=== PATIENT | male | born 1945 | race Caucasian/White ===

== ENCOUNTER 2020-03-28 22:05 | Inpatient (IN) | payer OTHER ==
[~2020-03-28] VITALS: Ht 182.9 cm; Wt 78.4 kg
[2020-03-28 22:15] VITALS: BP 121/70
[2020-03-28] MEDS ORDERED: MAGNESIUM HYDROXIDE 2,400 MG/30 ML ORAL.SUSP. PO PRN (23:15)
[2020-03-28] MEDS ORDERED: MAG HYDROX/AL HYDROX/SIMETH 30 ML ORAL.SUSP PO PRN (23:15)
[2020-03-28] MEDS ORDERED: ACETAMINOPHEN 325 MG TABLET PO PRN (23:15)
[2020-03-28] MEDS ORDERED: METHYL SALICYLATE/MENTHOL TOPICAL OINTMENT 57GM TUBE. TP PRN (23:15)
[2020-03-29] MEDS ORDERED: CYAN-25 PO (00:03)
[2020-03-29] MEDS ORDERED: GABA-586 PO (00:03)
[2020-03-29] MEDS ORDERED: MEMA10TA PO (00:03)
[2020-03-29] MEDS ORDERED: LORA0.5T21 PO (00:03)
[2020-03-29] MEDS ORDERED: METO-239 PO (00:03)
[2020-03-29] MEDS ORDERED: LISI2.5T PO (00:03)
[2020-03-29] MEDS ORDERED: MIRT7.5T8 PO (00:03)
[2020-03-29] MEDS ORDERED: ASPI-630 PO (00:03)
[2020-03-29] MEDS ORDERED: ATOR20TA58 PO (00:03)
[2020-03-29] MEDS ORDERED: AMIO200T6 PO (00:03)
[2020-03-29] MEDS ORDERED: QUET25TA5 PO (00:03)
[2020-03-29] MEDS ORDERED: RIVA6CAP5 PO (00:03)
[2020-03-29] MEDS ORDERED: DIVA125C2 PO (00:03)
--- NOTE | 2020-03-29 04:14 | NUR ---
The patient, CELINE ROLON, 75 y/o, M admitted by EPIFANIO COLÓN MD, was given written information regarding hospital policies, unit procedures and contact persons. Valuables were checked and noted. The patient arrived via fire/ems. The patient was very disorganized and unable to answer simple assessment questions at that time. The patient has no wounds or rashes. The patient is alert to name only at this time. Vital signs are WNL. Patient had one episode during HS shift of urinating on the floor in the bathroom. Patient able to ambulate self but requires standby x1 assist due to being unsteady and walking with eyes closed. The patient is currently laying in bed awake and restless.
[2020-03-29 05:40] VITALS: BP 106/60
--- NOTE | 2020-03-29 06:25 | EKG ---
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
[2020-03-29 07:40] LABS: BASO % 1 % (0-3); EOS # 0.2 x10^3/uL (0.0-0.7); EOS % 3 % (0-3); HEMATOCRIT 36.8 % (39.0-53.0); HEMOGLOBIN 11.9 g/dL (13.0-17.5); LYMPH # 0.8 x10^3/uL (1.0-4.8); LYMPH % 13 % (24-48); MEAN CORPUSCULAR HEMOGLOBIN 30 pg (25-35); MEAN CORPUSCULAR HGB CONC 32 g/dL (31-37); MEAN CORPUSCULAR VOLUME 92 fL (79-100); MONO # 0.5 x10^3/uL (0.0-1.1); MONO % 8 % (0-9); NEUT # 4.5 x10^3uL (1.8-7.7); NEUT % 76 % (31-73); PLATELET COUNT 134 x10^3/uL (140-400); RED BLOOD COUNT 3.98 x10^6/uL (4.30-5.70); RED CELL DISTRIBUTION WIDTH 15.1 % (11.5-14.5); WHITE BLOOD COUNT 5.9 x10^3/uL (4.0-11.0)
[2020-03-29 08:20] LABS: ALBUMIN 3.2 g/dL (3.4-5.0); ALBUMIN/GLOBULIN RATIO 1.1 (1.0-1.7); CALCIUM 8.2 mg/dL (8.5-10.1); CREATININE 1.1 mg/dL (0.7-1.3); GFR 65.1; MAGNESIUM 2.2 mg/dL (1.8-2.4); POTASSIUM 3.8 mmol/L (3.5-5.1); TOTAL BILIRUBIN 0.5 mg/dL (0.2-1.0); TOTAL PROTEIN 6.2 g/dL (6.4-8.2)
--- NOTE | 2020-03-29 08:45 | NUR ---
Dangelo [place] a [place] community choice payor with consult number [id number]. Aniyah, mail service coordinator at the [place], [place] call [place] with a [place]. Addendum: 03/29/20 at 0950 by CELIA HOBSON [place] authorization [place] is [id number].
[2020-03-29 09:00] VITALS: BP 138/72
[2020-03-29] MEDS ORDERED: FLU VACC QS 2020-21(6MOS+)/PF 0.5 ML SYRINGE. VAX IM ONE (09:00)
[2020-03-29] MEDS: ASPIRIN CHEWABLE 81 MG TABLET. PO SCH (11:36)
[2020-03-29] MEDS: LISINOPRIL 2.5 MG TABLET PO SCH (11:36)
[2020-03-29] MEDS: DIVALPROEX 125 MG CAP.SPRINK PO SCH ×2 (11:36→20:09)
[2020-03-29] MEDS: AMIODARONE HCL 200 MG TABLET. PO SCH (11:40)
[2020-03-29] MEDS: CYANOCOBALAMIN (VITAMIN B-12) 1,000 MCG TABLET. PO SCH (11:41)
[2020-03-29] MEDS: METOPROLOL SUCC 24HR ER 25 MG TAB.ER.24H. PO SCH (11:41)
[2020-03-29] MEDS: GABAPENTIN 300 MG CAPSULE. PO SCH ×3 (11:41→20:09)
[2020-03-29] MEDS: MEMANTINE 10 MG TABLET. PO SCH ×2 (11:41→20:09)
[2020-03-29] MEDS: RIVASTIGMINE 6 MG PO SCH ×2 (11:42→20:09)
[2020-03-29] MEDS: LORazepam 0.5 MG TABLET PO PRN (11:45)
[2020-03-29] MEDS: QUEtiapine 25 MG TABLET. PO SCH (11:45)
[2020-03-29 11:57] LABS: COLOR,URINE YELLOW
[2020-03-29 11:58] LABS: BACTERIA,URINE MANY /HPF (0-FEW); BILIRUBIN,URINE NEG (NEG); CLARITY,URINE CLOUDY; GLUCOSE,URINE NEG (NEG); NITRITE,URINE POS (NEG); RBC,URINE OCC /HPF (0-2); WBC,URINE >40 /HPF (0-4)
--- NOTE | 2020-03-29 12:55 | NUR ---
Key, global sales executive at [facility], called to check status of Dangelo. Reviewed admission nursing note with her and she expressed thankfulness that Dangelo made it safely.
--- NOTE | 2020-03-29 13:15 | NUR ---
Nursing note: Pt has been very restless this shift, constantly getting up and walking around. Pt has unsteady gait and requires assistance with walking. PRN given with AM meds d/t agitation and restlessness. He was compliant with taking his meds crushed and mixed with pudding. Flu vaccine given in R deltoid. He is currently resting quietly in his bed. Will continue to monitor.
[2020-03-29 14:40] VITALS: BP 159/80
--- NOTE | 2020-03-29 14:54 | NUR ---
NURSING NOTE PT NOT REDIRECTABLE, PT AGITATED, ATTEMPTING TO SWING AT STAFF, PULLING ON COUNTER TOP, GRABBING ANYTHING IN SIGHT. DR COLÓN PHONED, ORDER FOR HALDOL 5 MG IM OBTAINED. AMEENA VERA.
[2020-03-29] MEDS ORDERED: HALOPERIDOL LACT 5 MG/ML VIAL. IM ONE (15:00)
--- NOTE | 2020-03-29 17:25 | NUR ---
Wound/Ostomy Care Wound Type/Assessment: Pt has skin tear to left forearm. Cleansed wound and dressed with aric, xeroform and foam dressing Treatment Recommendations/Plan: Continue dressing changes of xeroform and foam every 2-3 days. Education provided: PU prevention, WC POC Offloading surface/device: na Recommended Referrals/Tests: none Discharge Recommendations for dressings: Continue with xeroform and foam every 3 days, WC will follow up on 04/03
--- NOTE | 2020-03-29 17:27 | NUR ---
NURSING NOTE THIS NURSE TOOK REPORT FROM PADMINI LINDQUIST AND WILL TAKE OVER CARE. AMEENA VERA
[2020-03-29 18:36] LABS: THYROID STIM HORMONE (TSH) 0.627 uIU/mL (0.358-3.740)
[2020-03-29] MEDS: ATORVASTATIN CALCIUM 20 MG TABLET PO SCH (20:09)
[2020-03-29] MEDS: MIRTAZAPINE 7.5 MG TABLET. PO SCH (20:09)
--- NOTE | 2020-03-29 22:06 | PDOC ---
Exam Note: Hiren Note: Please also refer to the separate dictated note~for this date of service dictated separately.~Patient seen individually. Discussed the patient with Nursing staff reviewed the chart.~Reviewed interim history and current functioning. Reviewed vital signs,~Labs/ Radiology~and current medications noted below. Continue current treatment with the changes noted in the dictated addendum note Assessment: Vital Signs/I&O: Vital Signs Date Time Temp Pulse Resp B/P (MAP) Pulse Ox O2 Delivery O2 Flow Rate FiO2 03/29/20 14:40 97.9 88 20 159/80 (106) 95 Room Air Labs: Laboratory Tests Test 03/29/20 07:18 03/29/20 10:36 03/29/20 10:40 White Blood Count 5.9 x10^3/uL (4.0-11.0) Red Blood Count 3.98 x10^6/uL (4.30-5.70) L Hemoglobin 11.9 g/dL (13.0-17.5) L Hematocrit 36.8 % (39.0-53.0) L Mean Corpuscular Volume 92 fL (79-100) Mean Corpuscular Hemoglobin 30 pg (25-35) Mean Corpuscular Hemoglobin Concent 32 g/dL (31-37) Red Cell Distribution Width 15.1 % (11.5-14.5) H Platelet Count 134 x10^3/uL (140-400) L Neutrophils (%) (Auto) 76 % (31-73) H Lymphocytes (%) (Auto) 13 % (24-48) L Monocytes (%) (Auto) 8 % (0-9) Eosinophils (%) (Auto) 3 % (0-3) Basophils (%) (Auto) 1 % (0-3) Neutrophils # (Auto) 4.5 x10^3uL (1.8-7.7) Lymphocytes # (Auto) 0.8 x10^3/uL (1.0-4.8) L Monocytes # (Auto) 0.5 x10^3/uL (0.0-1.1) Eosinophils # (Auto) 0.2 x10^3/uL (0.0-0.7) Basophils # (Auto) 0.0 x10^3/uL (0.0-0.2) Sodium Level 143 mmol/L (136-145) Potassium Level 3.8 mmol/L (3.5-5.1) Chloride Level 108 mmol/L (98-107) H Carbon Dioxide Level 27 mmol/L (21-32) Anion Gap 8 (6-14) Blood Urea Nitrogen 19 mg/dL (8-26) Creatinine 1.1 mg/dL (0.7-1.3) Estimated GFR (Cockcroft-Gault) 65.1 BUN/Creatinine Ratio 17 (6-20) Glucose Level 96 mg/dL (70-99) Calcium Level 8.2 mg/dL (8.5-10.1) L Magnesium Level 2.2 mg/dL (1.8-2.4) Iron Level 31 ug/dL (65-175) L Total Iron Binding Capacity 223 ug/dL (250-450) L Iron Saturation 14 % (15-34) L Total Bilirubin 0.5 mg/dL (0.2-1.0) Aspartate Amino Transferase (AST) 35 U/L (15-37) Alanine Aminotransferase (ALT) 28 U/L (16-63) Alkaline Phosphatase 60 U/L (46-116) Total Protein 6.2 g/dL (6.4-8.2) L Albumin 3.2 g/dL (3.4-5.0) L Albumin/Globulin Ratio 1.1 (1.0-1.7) Triglycerides Level 62 mg/dL (0-150) Cholesterol Level 108 mg/dL (0-200) LDL Cholesterol, Calculated 58 mg/dL (0-100) VLDL Cholesterol, Calculated 12 mg/dL (0-40) Non-HDL Cholesterol Calculated 70 mg/dL (0-129) HDL Cholesterol 38 mg/dL (40-60) L Cholesterol/HDL Ratio 2.0 Vitamin B12 Level 915 pg/mL (247-911) H 25-Hydroxy Vitamin D Total 16.2 ng/mL (30-100) L Thyroid Stimulating Hormone (TSH) 0.627 uIU/mL (0.358-3.740) Treponema pallidum Antibody Reactive (Nonreactive) Urine Collection Type Unknown Urine Color Yellow Urine Clarity Cloudy Urine pH 7.0 Urine Specific [place] 1.020 Urine Protein Neg (NEG-TRACE) Urine Glucose (UA) Neg mg/dL (NEG) Urine Ketones (Stick) Neg mg/dL (NEG) Urine Blood Neg (NEG) Urine Nitrite Pos (NEG) Urine Bilirubin Neg (NEG) Urine Urobilinogen Dipstick 1.0 mg/dL (0.2 mg/dL) Urine Leukocyte Esterase Small (NEG) Urine RBC Occ /HPF (0-2) Urine WBC >40 /HPF (0-4) Urine Bacteria Many /HPF (0-FEW) D-Dimer (Elsa) 1.58 mg/L (0.00-0.50) H Current Medications: Meds: Current Medications Medications (Trade) Dose Ordered Sig/Nelly Route PRN Reason Start Time Stop Time Status Last Admin Dose Admin Amiodarone HCl (Cordarone) 200 mg DAILY PO 03/29/20 09:00 03/29/20 11:40 Aspirin (Aspirin Chewable) 81 mg DAILY PO 03/29/20 09:00 03/29/20 11:36 Atorvastatin Calcium (Lipitor) 20 mg QHS PO 03/29/20 21:00 03/29/20 20:09 Cyanocobalamin (Vitamin B-12) 1,000 mcg DAILY PO 03/29/20 09:00 03/29/20 11:41 Divalproex Sodium (Depakote Sprinkles) 125 mg BID PO 03/29/20 09:00 03/29/20 20:09 Gabapentin (Neurontin) 300 mg TID PO 03/29/20 09:00 03/29/20 20:09 Lisinopril (Prinivil) 2.5 mg DAILY PO 03/29/20 09:00 03/29/20 11:36 Lorazepam (Ativan) 0.5 mg PRN BID PRN PO ANXIETY 03/29/20 00:15 03/29/20 11:45 Memantine (Namenda) 10 mg BID PO 03/29/20 09:00 03/29/20 20:09 Metoprolol Succinate (Toprol Xl) 12.5 mg DAILY PO 03/29/20 09:00 03/29/20 11:41 Mirtazapine (Remeron) 7.5 mg QHS PO 03/29/20 21:00 03/29/20 20:09 Quetiapine Fumarate (SEROquel) 12.5 mg DAILY@1200 PO 03/29/20 12:00 03/29/20 11:45 Rivastigmine Tartrate (Exelon) 6 mg BID PO 03/29/20 09:00 03/29/20 20:09 Influenza Virus Vaccine Quadrival (Fluzone Quad Syringe) 0.5 ml ONCE ONCE VAX IM 03/29/20 09:00 03/29/20 09:01 DC 03/29/20 11:50 Haloperidol Lactate (Haldol) 5 mg 1X ONCE IM 03/29/20 15:00 03/29/20 15:01 DC 03/29/20 15:00 I have reviewed the current psychotropics carefully including drug interactions. Risk benefit ratio favors no change other than as noted in my dictated progress note. GEOVANI VIEIRA MD Mar 29, 2020 22:06
[2020-03-29 23:07] LABS: HEMOGLOBIN A1C 5.8 % (4.8-5.6)
--- NOTE | 2020-03-29 23:44 | NUR ---
Pt has been laying in bed all evening after receiving IM Haldol on previous shift. Pt awakens to name and smiles when RN approaches. Compliant with crushed HS medications. No agitation this shift.
[2020-03-30 00:06] LABS: THYROXINE 7.8 ug/dL (4.5-12.0)
[2020-03-30 06:32] VITALS: BP 115/73
[2020-03-30] MEDS: PENICILLIN G BENZATHINE LA 1,200,000 UNIT/2 ML DISP.SYRIN. IM SCH (09:00)
[2020-03-30] MEDS: DIVALPROEX 125 MG CAP.SPRINK PO SCH ×2 (09:51→19:37)
[2020-03-30] MEDS: GABAPENTIN 300 MG CAPSULE. PO SCH ×3 (09:51→19:41)
[2020-03-30] MEDS: ASPIRIN CHEWABLE 81 MG TABLET. PO SCH (09:51)
[2020-03-30] MEDS: AMIODARONE HCL 200 MG TABLET. PO SCH (09:51)
[2020-03-30] MEDS: MEMANTINE 10 MG TABLET. PO SCH ×2 (09:51→19:37)
[2020-03-30] MEDS: LISINOPRIL 2.5 MG TABLET PO SCH (09:52)
[2020-03-30] MEDS: RIVASTIGMINE 6 MG PO SCH ×2 (09:52→19:41)
[2020-03-30] MEDS: CYANOCOBALAMIN (VITAMIN B-12) 1,000 MCG TABLET. PO SCH (09:52)
[2020-03-30] MEDS: METOPROLOL SUCC 24HR ER 25 MG TAB.ER.24H. PO SCH (09:52)
--- NOTE | 2020-03-30 10:11 | NUR ---
Patient complaint with assessment and medication. Patient encouraged not to go into other patients rooms when wandering. Patient is currently laying in bed.
[2020-03-30] MEDS: QUEtiapine 25 MG TABLET. PO SCH (12:04)
[2020-03-30] MEDS ORDERED: CHOLECALCIFEROL (VITAMIN D3) 50,000 UNIT CAPSULE PO SCH ×2 (18:00→21:00)
--- NOTE | 2020-03-30 18:38 | HP ---
ADMIT DATE: 03/28/2020 HISTORY OF PRESENT ILLNESS: The patient is a 75-year-old male patient, a resident at [facility] in [place], [place], who was admitted on account of being aggressive, flipping tables when he cannot leave, got mad with the staff and put hands on staff's neck, trying to bite. All this has been going on for the last 2 weeks, and he was apparently evaluated at the [facility], and despite this, the patient continued with this behavior and therefore, he was admitted to [facility] for 48 hours unit as a direct admit to rule out COVID, and once that is done, the patient will be admitted to [facility] for inpatient psychiatric stabilization. The patient apparently is demented with major neurocognitive disorder, vascular dementia and does not really give any useful information. PAST MEDICAL HISTORY: Significant for hypertension, hyperlipidemia, and atrial fibrillation. PAST SURGICAL HISTORY: Unremarkable. FAMILY HISTORY: Unobtainable. SOCIAL HISTORY: He is apparently a resident at [facility]. No further information available. REVIEW OF SYSTEMS: Again is limited given the patient is demented. ALLERGIES: HE IS ALLERGIC TO PENICILLIN, ARICEPT, AND GALANTAMINE. CURRENT MEDICATIONS: He is currently on following medications: Mirtazapine 7.5 mg at bedtime, atorvastatin calcium 20 mg at bedtime, quetiapine fumarate 12.5 mg once daily, rivastigmine tartrate or Exelon 6 mg twice a day, metoprolol succinate 12.5 mg once a day, Namenda 10 mg twice a day, lisinopril 2.5 mg daily, gabapentin 300 mg 3 times a day, divalproex sodium 125 mg twice a day, cyanocobalamin 1000 mcg once a day, aspirin 81 mg once a day, amiodarone 200 mg daily, lorazepam 0.5 mg twice a day, milk of magnesia 30 mL p.o. daily p.r.n. for constipation, Mylanta 15 mL after meals and as needed, acetaminophen 650 mg every 6 hours as needed. PHYSICAL EXAMINATION: GENERAL: When I examined him this afternoon, he was resting slightly propped up in bed, in no apparent distress, somewhat lethargic, but arousable; however, the nursing staff stated that he goes into cycles of taking naps and then walking around. There was no pallor, jaundice or cyanosis. No lymphadenopathy, no thyromegaly. No jugular venous distention. No lower limb edema. VITAL SIGNS: His heart rate was 54, blood pressure 115/73, temperature was 97.6, respiratory rate was 16, and oxygen saturation was 96%. HEAD, EYES, EARS, NOSE AND THROAT: Showed he is normocephalic, atraumatic. NECK: Supple. CARDIAC: Normal first and second heart sounds. No gallop, rub or murmur. CHEST: Clear to auscultation. No crepitation or rhonchi. ABDOMEN: Distended, soft, nontender. NEUROLOGIC: He was somewhat lethargic, but arousable. He does open his eyes and all his cranial nerves seem to be grossly intact. EXTREMITIES: He moves his extremities without difficulty. He apparently was able to ambulate without assistance or assistive devices. LABORATORY DATA: Showed his white cell count to be 5900, hemoglobin 12, hematocrit 36, MCV 92, and platelet count of 134,000. His chemistry showed his serum sodium was 143, potassium 3.8, chloride 108, bicarbonate 27, anion gap of 8, BUN 19, creatinine 1.1, estimated GFR was 65 mL per minute, his glucose was 96, calcium was 8.2, magnesium was 2.2. Total bilirubin, AST, ALT, alkaline phosphatase were normal. Total protein 6.2, albumin was 3.2. His serum iron was 31, TIBC was 232 and iron saturation was 14%. His serum triglycerides were 62, total cholesterol 108, LDL cholesterol of 58, HDL cholesterol was 38 and the ratio was 2. His vitamin B12 was 915 pg/mL, 25-hydroxy vitamin D was low at 16.2. His TSH, total T3, and total T4 are within normal range. His hemoglobin A1c was 5.8. His D-dimer was high at 1.58. Urinalysis showed that the patient's urine was yellow, cloudy with a pH of 7, specific gravity of 1.020. The urine was negative for protein, glucose, ketones, blood. It was positive for nitrite as well as leukocyte esterase. There are occasional rbc's, more than 40 wbc's, and too many bacteria. His RPR was nonreactive. However, treponema pallidum antibodies were reactive. ASSESSMENT AND PLAN: In summary, this is a 75-year-old male patient, a resident at [facility], who was admitted on account of being aggressive, flipping tables when he cannot leave, apparently put hands on staff's neck and was trying to bite. All these behaviors have been going on for almost 2 weeks, and despite outpatient psychiatric intervention, the patient continued to display this behavior and therefore, he was admitted directly to [facility] for 48-hour unit hold and eventually will be admitted to [facility]. Medically, the patient has multiple medical problems including hypertension, hyperlipidemia, coronary artery disease, and atrial fibrillation. He has also normochromic normocytic anemia, thrombocytopenia with platelet count of 134,000. 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 The patient seems to be somewhat lethargic and has flapping tremors. I will add to his lab work serum ammonia and also prothrombin time and INR to rule out the possibility of hepatic encephalopathy, although he has no clear-cut evidence of liver disease, at least from his lab work and history. Thank you, Dr. Baires for allowing me to participate in the care of this patient. EPIFANIO COLÓN MD DR: GARRETT/fausto JOB#: [id number] / [id number]
[2020-03-30 18:45] VITALS: BP 118/74
[2020-03-30] MEDS: MIRTAZAPINE 7.5 MG TABLET. PO SCH (19:37)
[2020-03-30] MEDS: ATORVASTATIN CALCIUM 20 MG TABLET PO SCH (19:37)
--- NOTE | 2020-03-30 20:54 | CONS ---
DATE OF CONSULTATION: 03/29/2020 PSYCHIATRIC CONSULTATION This late entry, 03/29, covers the elements not covered in my initial note of 03/29. This is a telehealth evaluation. IDENTIFYING DATA: The patient is a 75-year-old male referred to us from [facility] on account of worsening confusion, agitation, psychotic symptoms. He has been aggressive. He has been flipping tables, ____. Behaviors have been dangerous, unmanageable, having failed outpatient psychiatric interventions, referred for inpatient psychiatric stabilization. CHIEF COMPLAINT: "I am okay." When further questioned, the patient thought he had been here since 71. 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 HISTORY OF PRESENT ILLNESS: The patient has a history of dementia, Alzheimer's, vascular type. He has been residing at the [facility], recently getting more paranoid, psychotic with sleep and appetite changes, marked aggressive, disruptive, unmanageable behaviors which have been deemed dangerous, unmanageable at the facility resulting in this referral. No clear history of bipolar disorder. PAST PSYCHIATRIC HISTORY: As above. MEDICAL HISTORY: Positive for hyperlipidemia, coronary artery disease. CODE STATUS: DNR. ALLERGIES: PENICILLIN, ARICEPT, GALANTAMINE, HYDROBROMIDE. DIET: Regular. Takes medications crushed. Ambulates x 1 assist, unsteady. Urine C and S is awaited. CURRENT PSYCHOTROPICS: Depakote 125 mg b.i.d., Ativan 0.5 mg b.i.d. p.r.n., Remeron 7.5 mg at bedtime, Seroquel 12.5 mg at noon, Namenda 10 mg b.i.d., Exelon 6 mg b.i.d. FAMILY HISTORY: Noncontributory. SOCIAL HISTORY: No history of alcohol, drug abuse, physical, sexual or elder abuse. Not known to be a perpetrator. REACTION TO HOSPITALIZATION: The patient oblivious of this. REVIEW OF SYSTEMS: Ambulation impaired. No CV, , pulmonary, eye system symptoms on review. MENTAL STATUS EXAMINATION: The patient is oriented to himself. Insight, judgment, recent and remote memory, attention, concentration, fund of knowledge poor, consistent with his diagnosis. LABORATORY DATA: Reviewed. IMPRESSION: Major neurocognitive disorder; Alzheimer vascular with delusion; depression; behavioral disturbance; anxiety disorder, unspecified; impulse control disorder, unspecified; rule out urinary tract infection. Rest as above. RECOMMENDATIONS: From a psychiatric standpoint, continue current psychotropics. Check CBC, CMP, valproic acid level. The patient will remain [facility] until repeat COVID is negative and the need of transition to the [facility]. MAN Ulisses VIEIRA MD DR: RUDY/fausto JOB#: [id number] / [id number]
[2020-03-30] MEDS: LORazepam 0.5 MG TABLET PO PRN (21:37)
--- NOTE | 2020-03-30 21:48 | NUR ---
Pt has been very restless this evening. Pt up/down from bed, wandering in the hallway, sitting in the chair and going back to bed numerous times. Pt hollering out from his bed "help me." Pt states "get me out of here, I need to leave." At one point, pt yelled out stating that his feet were gone and then yelled out "oh yeah, here they are, I found them." Pt compliant with crushed medications. PRN Ativan administered at 2140 d/t pt's restlessness and continuously setting off bed alarm. Will continue to monitor.
--- NOTE | 2020-03-30 22:10 | PDOC ---
Exam Note: Hiren Note: Please also refer to the separate dictated note~for this date of service dictated separately.~Patient seen individually. Discussed the patient with Nursing staff reviewed the chart.~Reviewed interim history and current functioning. Reviewed vital signs,~Labs/ Radiology~and current medications noted below. Continue current treatment with the changes noted in the dictated addendum note Assessment: Vital Signs/I&O: Vital Signs Date Time Temp Pulse Resp B/P (MAP) Pulse Ox O2 Delivery O2 Flow Rate FiO2 03/30/20 18:45 97.8 64 18 118/74 (89) 96 Room Air I & O 03/29/20 03/29/20 03/30/20 15:00 23:00 07:00 Intake Total 960 ml 0 ml Balance 960 ml 0 ml Current Medications: Meds: Current Medications Medications (Trade) Dose Ordered Sig/Nelly Route PRN Reason Start Time Stop Time Status Last Admin Dose Admin Penicillin G Benzathine (Bicillin L-A) 2,400,000 unit WEEKLY IM 03/30/20 09:00 04/19/20 08:59 03/30/20 09:00 I have reviewed the current psychotropics carefully including drug interactions. Risk benefit ratio favors no change other than as noted in my dictated progress note. Diagnosis: Problems: (1) Major neurocognitive disorder (2) Dementia in Alzheimer's disease with delusions (3) Dementia in Alzheimer's disease with depression (4) Dementia of the Alzheimer's type with early onset with behavioral disturbance (5) Dementia, vascular, with depression (6) Dementia, vascular, with delusions (7) Anxiety disorder, unspecified (8) Impulse control disorder, unspecified GEOVANI VIEIRA MD Mar 30, 2020 22:10
--- NOTE | 2020-03-30 23:28 | PDOC ---
Exam Note: Hiren Note: This note for 03/30/2020 covers elements not covered in my initial note. Subjective: The patient was reviewed on telehealth rounds in the morning of 03/30/2020 with Segun LINDQUIST. Discussed with nursing staff, reviewed the chart. Overall, the patient remains confused, has been anxious, restless. Review of Systems: No CV, , pulmonary, eye system symptoms on review. Gait unsteady. Mental Status Exam: Oriented to himself. Insight and judgment, recent and remote memory, attention and concentration, fund of knowledge is poor consistent with his diagnoses. Laboratory Data: Reviewed. Impression: Major neurocognitive disorder Alzheimers vascular with delusion, depression, behavioral disturbance. Anxiety disorder unspecified. Impulse control disorder unspecified. Plan: Continue current psychotropics. Await valproic acid level. The patient is syphilis positive and being treated on IM penicillin. I had been called as an emergency by Kaela LINDQUIST late evening of 03/29 due to his marked agitation and we did add Zyprexa p.r.n. which seems to be helpful. We will make further adjustments in psychotropics post receiving the above labs. Assessment: Vital Signs/I&O: Vital Signs Date Time Temp Pulse Resp B/P (MAP) Pulse Ox O2 Delivery O2 Flow Rate FiO2 03/30/20 18:45 97.8 64 18 118/74 (89) 96 Room Air I & O 03/29/20 03/29/20 03/30/20 15:00 23:00 07:00 Intake Total 960 ml 0 ml Balance 960 ml 0 ml Current Medications: Meds: Current Medications Medications (Trade) Dose Ordered Sig/Nelly Route PRN Reason Start Time Stop Time Status Last Admin Dose Admin Penicillin G Benzathine (Bicillin L-A) 2,400,000 unit WEEKLY IM 03/30/20 09:00 04/19/20 08:59 03/30/20 09:00 I have reviewed the current psychotropics carefully including drug interactions. Risk benefit ratio favors no change other than as noted in my dictated progress note. Diagnosis: Problems: (1) Impulse control disorder, unspecified (2) Anxiety disorder, unspecified (3) Dementia, vascular, with depression (4) Dementia, vascular, with delusions (5) Dementia in Alzheimer's disease with depression (6) Dementia in Alzheimer's disease with delusions (7) Dementia of the Alzheimer's type with early onset with behavioral disturbance (8) Major neurocognitive disorder GEOVANI VIEIRA MD Mar 30, 2020 23:28
[2020-03-31 06:22] VITALS: BP 148/85
[2020-03-31] MEDS: ASPIRIN CHEWABLE 81 MG TABLET. PO SCH (08:30)
[2020-03-31] MEDS: AMIODARONE HCL 200 MG TABLET. PO SCH (08:30)
[2020-03-31] MEDS: CYANOCOBALAMIN (VITAMIN B-12) 1,000 MCG TABLET. PO SCH (08:30)
[2020-03-31] MEDS: DIVALPROEX 125 MG CAP.SPRINK PO SCH (08:30)
[2020-03-31] MEDS: MEMANTINE 10 MG TABLET. PO SCH ×2 (08:30→19:43)
[2020-03-31] MEDS: RIVASTIGMINE 6 MG PO SCH ×2 (08:30→19:44)
[2020-03-31] MEDS: METOPROLOL SUCC 24HR ER 25 MG TAB.ER.24H. PO SCH (08:30)
[2020-03-31] MEDS: GABAPENTIN 300 MG CAPSULE. PO SCH ×3 (08:30→19:43)
[2020-03-31] MEDS: LISINOPRIL 2.5 MG TABLET PO SCH (08:31)
--- NOTE | 2020-03-31 08:53 | NUR ---
Patient complaint with assessment and medication. Patient encouraged not to go into other patients rooms when wandering.
[2020-03-31] MEDS ORDERED: CHOLECALCIFEROL (VITAMIN D3) 50,000 UNIT CAPSULE PO SCH (09:00)
[2020-03-31] MEDS: QUEtiapine 25 MG TABLET. PO SCH (12:37)
[2020-03-31 16:15] VITALS: BP 115/66
[2020-03-31] MEDS: ATORVASTATIN CALCIUM 20 MG TABLET PO SCH (19:43)
[2020-03-31] MEDS: LORazepam 0.5 MG TABLET PO PRN (19:43)
[2020-03-31] MEDS: LACTOBACILLUS RHAMNOSUS GG 1 CAPSULE. PO SCH (19:43)
[2020-03-31] MEDS: MIRTAZAPINE 7.5 MG TABLET. PO SCH (19:43)
--- NOTE | 2020-03-31 19:58 | PN ---
DATE: 03/31/2020 SUBJECTIVE: The patient continued to be restless, has been a little bit more aggressive today, wanting to go home. He is normally steadier than he is today, although he has not received any ___. His urine culture has grown Staphylococcus aureus that is methicillin-sensitive. He was already started on benzathine penicillin for his late syphilis and the bacteria is sensitive to penicillin. PHYSICAL EXAMINATION: GENERAL: When I examined him, he looked well and was clearly in no apparent respiratory distress. No pallor, jaundice, cyanosis or thyromegaly. No jugular venous distention. No lower limb edema. VITAL SIGNS: His heart rate was 65, blood pressure was 148/85, temperature was 97.9, respiratory rate was 20, and oxygen saturation was 92%. The rest of clinical exam is stable except neurologically he seems to be more unsteady in his feet today. His intake was 916, no output was recorded. LABORATORY DATA: As of yesterday showed that his white cell count was 5900, hemoglobin 12, hematocrit 36, MCV 92, and platelet count of 137,000. His RPR was nonreactive. However, treponema pallidum antibodies were reactive. ASSESSMENT: The patient has multiple medical problems including: A. Hypertension. B. Hyperlipidemia. C. Coronary artery disease. D. Atrial fibrillation. E. Normochromic normocytic anemia. F. Thrombocytopenia with platelet count at around 134,000. G. His urine culture was positive for methicillin-sensitive Staphylococcus aureus, sensitive to penicillin. I. He has a late tertiary syphilis for which he is now treated with 2.4 million units of benzathine penicillin once a week for 3 weeks. I did check his serum ammonia and prothrombin time, the results of which is still pending at the time of this dictation. EPIFANIO COLÓN MD DR: GARRETT/fausto JOB#: [id number] / [id number]
--- NOTE | 2020-03-31 22:07 | PDOC ---
Exam Note: Hiren Note: Please also refer to the separate dictated note~for this date of service dictated separately.~Patient seen individually. Discussed the patient with Nursing staff reviewed the chart.~Reviewed interim history and current functioning. Reviewed vital signs,~Labs/ Radiology~and current medications noted below. Continue current treatment with the changes noted in the dictated addendum note Assessment: Vital Signs/I&O: Vital Signs Date Time Temp Pulse Resp B/P (MAP) Pulse Ox O2 Delivery O2 Flow Rate FiO2 03/31/20 16:15 67 115/66 (82) 96 03/31/20 06:22 97.9 20 03/30/20 18:45 Room Air I & O 0 03/30/20 03/30/20 03/31/20 15:00 23:00 07:00 Intake Total 600 ml 240 ml Balance 600 ml 240 ml Current Medications: Meds: Current Medications Medications (Trade) Dose Ordered Sig/Nelly Route PRN Reason Start Time Stop Time Status Last Admin Dose Admin Vitamin D (Vitamin D3) 50,000 unit WEEKLY PO 03/31/20 09:00 03/31/20 08:29 Lactobacillus Rhamnosus (Culturelle) 1 cap BID PO 03/31/20 21:00 03/31/20 19:43 I have reviewed the current psychotropics carefully including drug interactions. Risk benefit ratio favors no change other than as noted in my dictated progress note. Diagnosis: Problems: (1) Impulse control disorder, unspecified (2) Anxiety disorder, unspecified (3) Dementia, vascular, with depression (4) Dementia, vascular, with delusions (5) Dementia in Alzheimer's disease with depression (6) Dementia in Alzheimer's disease with delusions (7) Dementia of the Alzheimer's type with early onset with behavioral disturbance (8) Major neurocognitive disorder GEOVANI VIEIRA MD Mar 31, 2020 22:07
--- NOTE | 2020-03-31 22:19 | NUR ---
Pt restless and disorganized this evening. Pt setting off bed alarm repeatedly. Pt taken for a walk in the hallway and toileted. Compliant with crushed medications. PRN Ativan administered with HS medications.
[2020-04-01 06:01] VITALS: BP 131/77
[2020-04-01] MEDS: ASPIRIN CHEWABLE 81 MG TABLET. PO SCH (08:58)
[2020-04-01] MEDS: LACTOBACILLUS RHAMNOSUS GG 1 CAPSULE. PO SCH ×2 (08:58→22:10)
[2020-04-01] MEDS: METOPROLOL SUCC 24HR ER 25 MG TAB.ER.24H. PO SCH (08:58)
[2020-04-01] MEDS: GABAPENTIN 300 MG CAPSULE. PO SCH ×3 (08:58→22:10)
[2020-04-01] MEDS: AMIODARONE HCL 200 MG TABLET. PO SCH (08:59)
[2020-04-01] MEDS: CYANOCOBALAMIN (VITAMIN B-12) 1,000 MCG TABLET. PO SCH (08:59)
[2020-04-01] MEDS: LISINOPRIL 2.5 MG TABLET PO SCH (08:59)
[2020-04-01] MEDS: MEMANTINE 10 MG TABLET. PO SCH ×2 (08:59→22:10)
[2020-04-01] MEDS: RIVASTIGMINE 6 MG PO SCH ×2 (09:00→22:10)
--- NOTE | 2020-04-01 17:18 | NUR ---
NURSING NOTE REPORT FROM AMEENA HINES. PT MOVED TO [address]. AMEENA VERA.
[2020-04-01 21:13] VITALS: BP 124/66
--- NOTE | 2020-04-01 22:04 | PDOC ---
Exam Note: Hiren Note: Please also refer to the separate dictated note~for this date of service dictated separately.~Patient seen individually. Discussed the patient with Nursing staff reviewed the chart.~Reviewed interim history and current functioning. Reviewed vital signs,~Labs/ Radiology~and current medications noted below. Continue current treatment with the changes noted in the dictated addendum note Assessment: Vital Signs/I&O: Vital Signs Date Time Temp Pulse Resp B/P (MAP) Pulse Ox O2 Delivery O2 Flow Rate FiO2 04/01/20 21:13 98.7 68 18 124/66 (85) 94 Room Air I & O 03/31/20 03/31/20 04/01/20 15:00 23:00 07:00 Intake Total 440 ml 225 ml Output Total 300 ml Balance 140 ml 225 ml Current Medications: I have reviewed the current psychotropics carefully including drug interactions. Risk benefit ratio favors no change other than as noted in my dictated progress note. Diagnosis: Problems: (1) Impulse control disorder, unspecified (2) Anxiety disorder, unspecified (3) Dementia, vascular, with depression (4) Dementia, vascular, with delusions (5) Dementia in Alzheimer's disease with depression (6) Dementia in Alzheimer's disease with delusions (7) Dementia of the Alzheimer's type with early onset with behavioral disturbance (8) Major neurocognitive disorder GEOVANI VIEIRA MD Apr 01, 2020 22:04
[2020-04-01] MEDS: LORazepam 0.5 MG TABLET PO PRN (22:10)
[2020-04-01] MEDS: ATORVASTATIN CALCIUM 20 MG TABLET PO SCH (22:10)
[2020-04-01] MEDS: MIRTAZAPINE 7.5 MG TABLET. PO SCH (22:10)
--- NOTE | 2020-04-02 04:51 | NUR ---
pt was in bed resting upon assessment and med pass. pt was calm and cooperative this evening. pt slept most night woke up briefly due to incontinence. pt will come out of room and walk halls if not bed alarmed. pt is currently in bed sleeping. will continue to monitor.
[2020-04-02 05:20] VITALS: BP 127/81
--- NOTE | 2020-04-02 06:42 | PDOC ---
Exam Note: Hiren Note: This note is a late entry for 03/31/2020 covers elements not covered in my initial note. Subjective: The patient was reviewed on telehealth rounds of 03/31/2020 with Segun LINDQUIST. Discussed with nursing staff, reviewed the chart. The patient did well in the morning, somewhat unsteady in his gait in the afternoon, aggressive around 2 p.m., pushing staff. Otherwise he has been intermittently quite sedated. Review of Systems: No CV, , pulmonary, eye system symptoms on review. Gait unsteady. He is a fall risk. Reliability poor. Mental Status Exam: Oriented to himself. Insight and judgment, recent and remote memory, attention and concentration, fund of knowledge is poor consistent with his diagnoses. Laboratory Data: Reviewed. Impression: Major neurocognitive disorder Alzheimers vascular with delusion, d epression, behavioral disturbance. Anxiety disorder unspecified. Impulse control disorder unspecified. Plan: Continue current psychotropics. Given his sedation and significant fall risk, we will go ahead and stop the Depakote and Seroquel. Continue rest of the psychotropics unchanged. We will transition him to the [facility] once the COVID screen returns negative and make further adjustments in his psychotropics at that time. Assessment: Vital Signs/I&O: Vital Signs Date Time Temp Pulse Resp B/P (MAP) Pulse Ox O2 Delivery O2 Flow Rate FiO2 04/02/20 05:20 97.5 96 18 127/81 (96) 94 Room Air I & O 04/01/20 04/01/20 04/02/20 15:00 23:00 07:00 Intake Total 720 ml Balance 720 ml Current Medications: I have reviewed the current psychotropics carefully including drug interactions. Risk benefit ratio favors no change other than as noted in my dictated progress note. Diagnosis: Problems: (1) Impulse control disorder, unspecified (2) Anxiety disorder, unspecified (3) Dementia, vascular, with depression (4) Dementia, vascular, with delusions (5) Dementia in Alzheimer's disease with depression (6) Dementia in Alzheimer's disease with delusions (7) Dementia of the Alzheimer's type with early onset with behavioral disturbance (8) Major neurocognitive disorder GEOVANI VIEIRA MD Apr 02, 2020 06:42
--- NOTE | 2020-04-02 06:52 | PDOC ---
Exam Note: Hiren Note: This note is a late entry for 04/01/2020 covers elements not covered in my initial note. Subjective: The patient was reviewed on rounds of 04/01/2020 with Ariel LINDQUIST. Discussed with nursing staff, reviewed the chart. Overall, the patient remains disorganized, confused, wandering the hallway. COVID screen was done on 03/29, result is awaited and it is negative he will transition to the [facility]. Review of Systems: Ambulation impaired. No CV, , pulmonary, eye system symptoms on review. Mental Status Exam: Oriented to himself. Insight and judgment, recent and remote memory, attention and concentration, fund of knowledge is poor consistent with his diagnoses. Laboratory Data: Reviewed. Impression: Major neurocognitive disorder Alzheimers vascular with delusion, depression, behavioral disturbance. Anxiety disorder unspecified. Impulse control disorder unspecified. Plan: Continue psychotropics from initial note. We have stopped the Seroquel and Depakote and started Remeron 7.5 mg h.s. He remains on Namenda 10 mg b.i.d. and Ativan 0.5 mg b.i.d. p.r.n. anxiety. Assessment: Vital Signs/I&O: Vital Signs Date Time Temp Pulse Resp B/P (MAP) Pulse Ox O2 Delivery O2 Flow Rate FiO2 04/02/20 05:20 97.5 96 18 127/81 (96) 94 Room Air I & O 04/01/20 04/01/20 04/02/20 15:00 23:00 07:00 Intake Total 720 ml Balance 720 ml Current Medications: I have reviewed the current psychotropics carefully including drug interactions. Risk benefit ratio favors no change other than as noted in my dictated progress note. Diagnosis: Problems: (1) Impulse control disorder, unspecified (2) Anxiety disorder, unspecified (3) Dementia, vascular, with depression (4) Dementia, vascular, with delusions (5) Dementia in Alzheimer's disease with depression (6) Dementia in Alzheimer's disease with delusions (7) Dementia of the Alzheimer's type with early onset with behavioral disturbance (8) Major neurocognitive disorder GEOVANI VIEIRA MD Apr 02, 2020 06:52
--- NOTE | 2020-04-02 07:42 | NUR ---
Patient is up and out of bed. He is standing by the wall, urinating on the floor. Nurse asked patient what he was doing and he just continued to urinate on the floor.
[2020-04-02] MEDS: RIVASTIGMINE 6 MG PO SCH (10:08)
[2020-04-02] MEDS: LISINOPRIL 2.5 MG TABLET PO SCH (10:09)
[2020-04-02] MEDS: CYANOCOBALAMIN (VITAMIN B-12) 1,000 MCG TABLET. PO SCH (10:09)
[2020-04-02] MEDS: METOPROLOL SUCC 24HR ER 25 MG TAB.ER.24H. PO SCH (10:09)
[2020-04-02] MEDS: AMIODARONE HCL 200 MG TABLET. PO SCH (10:10)
[2020-04-02] MEDS: LACTOBACILLUS RHAMNOSUS GG 1 CAPSULE. PO SCH (10:10)
[2020-04-02] MEDS: ASPIRIN CHEWABLE 81 MG TABLET. PO SCH (10:10)
[2020-04-02] MEDS: GABAPENTIN 300 MG CAPSULE. PO SCH (10:10)
[2020-04-02] MEDS: MEMANTINE 10 MG TABLET. PO SCH (10:10)
--- NOTE | 2020-04-02 10:46 | NUR ---
Patient is restless, getting on and off bedside. Nurse cut up patients waffle, he ate it without utensils by using his fingers. He has been calm and took his medications crushed in strawberry yogurt. Patient was cooperative with assessment.
[2020-04-02 11:19] VITALS: BP 147/76
--- NOTE | 2020-04-02 12:05 | NUR ---
Patient discharged 04/02/20 to [facility] to Dr. Baires. DX: Major Neurocognitive d/o, alzheimers, vascular Packet sent to unit, with med list. Report called to: WENDY George
--- NOTE | 2020-04-02 12:18 | DS ---
DATE OF DISCHARGE: HOSPITAL COURSE: The patient is a 75-year-old patient who was admitted to [facility] for 48 hours unit as a direct admit to rule out COVID. His coronavirus by PCR was negative and a decision was made to transfer him to [facility] for inpatient psychiatric stabilization, as he was admitted from [facility] in [place], [place] on account of being aggressive, flipping tables when he cannot leave; got mad with the staff and put hands on the staff's neck, trying to bite. All this has been going on for the last 2 weeks and he was apparently evaluated at the [place] [facility]. Despite this, the patient continued with this behavior and therefore, he was admitted to [facility] and now that he is COVID-19 negative, he would be admitted for inpatient psychiatric stabilization. PAST MEDICAL HISTORY: Significant for hypertension, hyperlipidemia, and atrial fibrillation. PHYSICAL EXAMINATION: GENERAL: When I saw him today, he looked well and was clearly in no apparent respiratory distress. No pallor, jaundice, cyanosis, or thyromegaly. No jugular venous distention. No limb edema. VITAL SIGNS: His heart rate was 68, blood pressure was 147/76, temperature was 97.6, respiratory rate was 20, and oxygen saturation was 95%. HEAD, EYES, EARS, NOSE, AND THROAT: Showed normocephalic, atraumatic. NECK: Supple. HEART: Showed normal first and second heart sounds. No gallop, rub, or murmur. CHEST: Clear to auscultation. No crepitation or rhonchi. ABDOMEN: Distended, soft, nontender. No guarding or rigidity. No organomegaly. All hernial orifice intact and bowel sounds normal. NEUROLOGIC: He is demented, but without any obvious lateralizing sign. LABORATORY DATA: His lab work showed that his RPR was nonreactive. 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 His white cell count was 5900, hemoglobin 12, hematocrit 36, MCV 92, and platelet count of 134,000. His chemistry was also unremarkable. DISCHARGE MEDICATIONS: He was transferred to [facility] to continue on amiodarone 200 mg daily, aspirin 81 mg once a day, atorvastatin calcium 20 mg at bedtime, cyanocobalamin vitamin B12 at 1000 units once a day, divalproex sodium 125 mg p.o. b.i.d., gabapentin 300 mg 3 times a day, lisinopril 2.5 mg daily, lorazepam 0.5 mg twice a day, Namenda 10 mg twice a day, metoprolol succinate 12.5 mg once a day, mirtazapine 7.5 mg at bedtime, quetiapine fumarate or Seroquel 12.5 mg daily, and rivastigmine tartrate 6 mg twice a day. FINAL DISCHARGE DIAGNOSES: Major neurocognitive disorder; Alzheimer, vascular with delusion; depression; behavioral disturbances; anxiety disorder; impulse control disorder. Medically, the patient has multiple medical problems including hypertension, hyperlipidemia, atrial fibrillation. EPIFANIO COLÓN MD DR: GARRETT/fausto JOB#: [id number] / [id number]
--- NOTE | 2020-04-02 12:30 | NUR ---
Patient has wandered out of his room and into the hallway and nurses station multiple times. He has a slow gait and appears steady at this time. Patient is easily redirected to his room but comes out repeatedly because he has a poor short term memory.
== END 2020-04-02 13:15 | DRG 868 ==
LOC: LND 22:05 → 1 SOUTH 04-01 17:40
PROVIDERS: ADMIT Internal Medicine; ATTEND Internal Medicine
DX: A53.9 Syphilis, unspecified (principal); N39.0 Urinary tract infection, site not specified; F01.51 Vascular dementia, unspecified severity, with behavioral disturbance; F02.81 Dementia in other diseases classified elsewhere, unspecified severity, with behavioral disturbance; Z20.828 Contact with and (suspected) exposure to other viral communicable diseases; B95.61 Methicillin susceptible Staphylococcus aureus infection as the cause of diseases classified elsewhere; D64.9 Anemia, unspecified; D69.6 Thrombocytopenia, unspecified; E78.5 Hyperlipidemia, unspecified; F32.9 Major depressive disorder, single episode, unspecified; F41.9 Anxiety disorder, unspecified; F63.9 Impulse disorder, unspecified; G30.9 Alzheimer's disease, unspecified; I10 Essential (primary) hypertension; I25.10 Atherosclerotic heart disease of native coronary artery without angina pectoris; I48.91 Unspecified atrial fibrillation; Z66 Do not resuscitate; Z88.1 Allergy status to other antibiotic agents; Z88.0 Allergy status to penicillin; Z88.8 Allergy status to other drugs, medicaments and biological substances
CPT/HCPCS: 36415; 80053; 80061; 81001; 82306; 82607; 83036; 83540; 83550; 83735; 84436; 84443; 84480; 85025; 85379; 86592; 87077; 87086; 87185; 87186; 90471; 93005; J0561; J1630; U0003; 90686

== ENCOUNTER 2020-04-02 13:17 | Inpatient (IN) | payer OTHER ==
[~2020-04-02] VITALS: Ht 182.9 cm; Wt 77.7 kg
[~2020-04-02 13:17] MED LIST: AMIO200T6 PO; ASPI-630 PO; ATOR20TA58 PO; CYAN-25 PO; DIVA125C2 PO; GABA-586 PO; LISI2.5T PO; LORA0.5T21 PO; MEMA10TA PO; METO-239 PO; MIRT7.5T8 PO; QUET25TA5 PO; RIVA6CAP5 PO
[2020-04-02 13:30] VITALS: BP 109/70
--- NOTE | 2020-04-02 13:30 | NUR ---
Admission Note with Justification for Admission to [facility] Patient admitted to [facility] for protective oversight for emergency stabilization of acute psychiatric crisis. Pt admitted from: SNF Mode of arrival: EMS Accompanied By: [facility] Staff Precipitating behaviors that initiated intake and admission: Patient was reported to be combative towards staff at facility, flipping tables, and increasingly aggressive. Description of failure of out patient attempts at stabilization in previous setting list behavior and medication trials: Medication changes and redirection reported to be ineffective. Behaviors and assessment findings upon admission: Patient has been wandering, confused, and calm. He is re-directable with a lot of repetition when he goes into other patient's rooms. Plan: Admit for protective oversight for adjustment and stabilization of medications, behaviors and mood. Intense treatment regimen including groups, medication adjustments, therapy, consistent regimen for ADL's, self care, and sleep hygiene. Daily monitoring by Inpatient staff, Psychiatry, and Medical Physician.
[2020-04-02] MEDS ORDERED: LORazepam 0.5 MG TABLET PO PRN (14:45)
[2020-04-02 16:19] VITALS: BP 95/57
[2020-04-02] MEDS: RIVASTIGMINE 6 MG PO SCH (19:53)
[2020-04-02] MEDS: MIRTAZAPINE 7.5 MG TABLET. PO SCH (19:53)
[2020-04-02] MEDS: GABAPENTIN 300 MG CAPSULE. PO SCH (19:53)
[2020-04-02] MEDS: ATORVASTATIN CALCIUM 20 MG TABLET PO SCH (19:53)
[2020-04-02] MEDS: MEMANTINE 10 MG TABLET. PO SCH (19:53)
[2020-04-02] MEDS ORDERED: DIVALPROEX 125 MG CAP.SPRINK PO SCH (21:00)
--- NOTE | 2020-04-02 21:40 | NUR ---
Nursing Note: Location of Patient during Assessment: Pt wandering in hallway at shift change. Behaviors Mood and Affect this shift: Pt calm, pleasantly confused, and interactive. No agitation or aggression noted thus far. Medication Compliant: Compliant with medications administered crushed in pudding. Assessment Compliant: Cooperative and compliant with assessment, denies pain at this time. Response After Interventions: Pt resting quietly in bed with eyes closed at this time.
--- NOTE | 2020-04-02 21:54 | PDOC ---
Exam Note: Hiren Note: Please also refer to the separate dictated note~for this date of service dictated separately.~Patient seen individually. Discussed the patient with Nursing staff reviewed the chart.~Reviewed interim history and current functioning. Reviewed vital signs,~Labs/ Radiology~and current medications noted below. Continue current treatment with the changes noted in the dictated addendum note Assessment: Vital Signs/I&O: Vital Signs Date Time Temp Pulse Resp B/P (MAP) Pulse Ox O2 Delivery O2 Flow Rate FiO2 04/02/20 16:19 97.9 68 16 95/57 (70) 96 04/02/20 13:30 Room Air Current Medications: Meds: Current Medications Medications (Trade) Dose Ordered Sig/Nelly Route PRN Reason Start Time Stop Time Status Last Admin Dose Admin Atorvastatin Calcium (Lipitor) 20 mg QHS PO 04/02/20 21:00 04/02/20 19:53 Gabapentin (Neurontin) 300 mg TID PO 04/02/20 21:00 04/02/20 19:53 Memantine (Namenda) 10 mg BID PO 04/02/20 21:00 04/02/20 19:53 Mirtazapine (Remeron) 7.5 mg QHS PO 04/02/20 21:00 04/02/20 19:53 Rivastigmine Tartrate (Exelon) 6 mg BID PO 04/02/20 21:00 04/02/20 19:53 I have reviewed the current psychotropics carefully including drug interactions. Risk benefit ratio favors no change other than as noted in my dictated progress note. Diagnosis: Problems: (1) Impulse control disorder, unspecified (2) Anxiety disorder, unspecified (3) Dementia, vascular, with depression (4) Dementia, vascular, with delusions (5) Dementia in Alzheimer's disease with depression (6) Dementia in Alzheimer's disease with delusions (7) Dementia of the Alzheimer's type with early onset with behavioral disturbance (8) Major neurocognitive disorder (9) Dementia in Alzheimer's disease with early onset with behavioral disturbance GEOVANI VIEIRA MD Apr 02, 2020 21:54
[2020-04-03] MEDS ORDERED: traZODone 50 MG TABLET. PO PRN (01:00)
[2020-04-03] MEDS: traZODone 50 MG TABLET. PO SCH ×2 (01:15→19:46)
--- NOTE | 2020-04-03 01:20 | NUR ---
Nursing Note: Pt restless, disorganized and confused, has been out of bed multiple times without assist, wandering in the hallway. PRN Ativan administered @3982 but was ineffective. Pt was escorted to the West hallway where he continued to wander, bang on the windows and doors, and rattle the door handles. Dr. Baires notified and new orders received. Trazodone and PRN Caitlyn administered @9742.
[2020-04-03 06:20] VITALS: BP 149/64
--- NOTE | 2020-04-03 08:41 | NUR ---
Dangelo [place] a [place] [employer] payor with authorization number [id number]. Addendum: 04/15/20 at 1625 by CELIA HOBSON Received written [place] authorization on this date. Copy placed in Dangelo's medical chart and faxed to [facility] registration.
[2020-04-03] MEDS: ASPIRIN CHEWABLE 81 MG TABLET. PO SCH (08:45)
[2020-04-03] MEDS: GABAPENTIN 300 MG CAPSULE. PO SCH ×3 (08:45→19:46)
[2020-04-03] MEDS: RIVASTIGMINE 6 MG PO SCH ×2 (08:45→19:46)
[2020-04-03] MEDS: CYANOCOBALAMIN (VITAMIN B-12) 1,000 MCG TABLET. PO SCH (08:45)
[2020-04-03] MEDS: MEMANTINE 10 MG TABLET. PO SCH ×2 (08:45→19:46)
[2020-04-03] MEDS: LISINOPRIL 2.5 MG TABLET PO SCH (08:45)
[2020-04-03] MEDS: METOPROLOL SUCC 24HR ER 25 MG TAB.ER.24H. PO SCH (08:48)
[2020-04-03] MEDS: QUEtiapine 25 MG TABLET. PO SCH (12:14)
[2020-04-03 15:47] VITALS: BP 145/86
--- NOTE | 2020-04-03 15:59 | NUR ---
Patient has been calm, compliant, and pleasantly confused throughout this shift. Patient has spent most of the shift wandering through out the unit. He has been easily redirected out of other patient's rooms. Will continue to monitor and report to oncoming shift.
[2020-04-03] MEDS: ATORVASTATIN CALCIUM 20 MG TABLET PO SCH (19:46)
[2020-04-03] MEDS: MIRTAZAPINE 7.5 MG TABLET. PO SCH (19:46)
--- NOTE | 2020-04-03 21:45 | NUR ---
Nursing Note: Location of Patient during Assessment: Pt wandering in hallway at shift change. Behaviors Mood and Affect this shift: Pt calm, pleasantly confused, and disorganized. Pt wandering into doors but easily re-directed by staff, no agitation or aggression noted thus far this evening. Medication Compliant: Compliant with medications administered crushed in pudding. Assessment Compliant: Cooperative and compliant with assessment, denies pain at this time. Response After Interventions: Pt resting quietly in bed with eyes closed at this time.
--- NOTE | 2020-04-03 22:07 | PDOC ---
Exam Note: Hiren Note: Please also refer to the separate dictated note~for this date of service dictated separately.~Patient seen individually. Discussed the patient with Nursing staff reviewed the chart.~Reviewed interim history and current functioning. Reviewed vital signs,~Labs/ Radiology~and current medications noted below. Continue current treatment with the changes noted in the dictated addendum note Assessment: Vital Signs/I&O: Vital Signs Date Time Temp Pulse Resp B/P (MAP) Pulse Ox O2 Delivery O2 Flow Rate FiO2 04/03/20 15:47 98.6 72 18 145/86 (105) 96 04/02/20 13:30 Room Air I & O 04/02/20 04/02/20 04/03/20 15:00 23:00 07:00 Intake Total 240 ml Balance 240 ml Current Medications: Meds: Current Medications Medications (Trade) Dose Ordered Sig/Nelly Route PRN Reason Start Time Stop Time Status Last Admin Dose Admin Aspirin (Aspirin Chewable) 81 mg DAILY PO 04/03/20 09:00 04/03/20 08:45 Cyanocobalamin (Vitamin B-12) 1,000 mcg DAILY PO 04/03/20 09:00 04/03/20 08:45 Lisinopril (Prinivil) 2.5 mg DAILY PO 04/03/20 09:00 04/03/20 08:45 Metoprolol Succinate (Toprol Xl) 12.5 mg DAILY PO 04/03/20 09:00 04/03/20 08:48 Quetiapine Fumarate (SEROquel) 12.5 mg DAILY@1200 PO 04/03/20 12:00 04/03/20 12:14 Olanzapine (ZyPREXA ZYDIS) 2.5 mg PRN Q2HR PRN PO PSYCHOSIS 04/03/20 01:00 04/03/20 01:17 Trazodone HCl (Desyrel) 50 mg QHS PO 04/03/20 01:00 04/03/20 19:46 I have reviewed the current psychotropics carefully including drug interactions. Risk benefit ratio favors no change other than as noted in my dictated progress note. Diagnosis: Problems: (1) Impulse control disorder, unspecified (2) Anxiety disorder, unspecified (3) Dementia, vascular, with depression (4) Dementia, vascular, with delusions (5) Dementia in Alzheimer's disease with depression (6) Dementia in Alzheimer's disease with delusions (7) Dementia of the Alzheimer's type with early onset with behavioral disturbance (8) Major neurocognitive disorder GEOVANI VIEIRA MD Apr 03, 2020 22:07
--- NOTE | 2020-04-03 22:10 | HP ---
ADMIT DATE: 04/02/2020 PSYCHIATRIC ADMISSION HISTORY/EVALUATION This late entry 04/02/2020 covers the elements not covered in my initial note. SUBJECTIVE: I met with the patient on 04/02/2020 for this evaluation. The patient has been transferred from the shelter unit/[address] [place] [address]. He was admitted for the past few days, still his COVID screen returned negative. He was initially referred to the [facility] from [facility] where he was increasingly confused, aggressive, flipping tables, put his hand on staff, agitated, paranoid, even more confused. Behaviors were deemed dangerous, unmanageable resulting in this referral. He was initially admitted to the shelter unit to reach a screen for a negative COVID test and once that was completed; he was transitioned to the [facility] on 04/02/2020. I have seen him for consult on shelter unit and we had initiated changes in his psychotropics even while there. CHIEF COMPLAINT: "No." The patient is quite confused. HISTORY OF PRESENT ILLNESS: The patient has a history of dementia, Alzheimer's vascular type. He has been residing at the [facility] residential for some time, recently getting more paranoid, agitated, aggressive, disruptive and more confused. He has had sleep and appetite changes. No active suicidal or homicidal ideation. PAST PSYCHIATRIC HISTORY: As above. MEDICAL HISTORY: Positive for hyperlipidemia, coronary artery disease, osteoarthritis. MEDICATIONS: He takes them crushed. DIET: Regular. ACCU-CHEKS: None. CODE STATUS: DNR. ALLERGIES: PENICILLIN, ARICEPT, GALANTAMINE, HYDROBROMIDE. Ambulates with 1-person assist, unsteady in his gait. CURRENT PSYCHOTROPICS: MRAD was reviewed. FAMILY HISTORY: Noncontributory. SOCIAL HISTORY: No history of alcohol, drug abuse, physical, sexual or elder abuse. He is not known to be a perpetrator. REVIEW OF SYSTEMS: No CV, , pulmonary, eye, ENT system symptoms on review. Reliability is poor. MENTAL STATUS EXAMINATION: The patient was seen individually. He is oriented to himself. Insight, judgment, recent and remote memory, attention, concentration, fund of knowledge poor, consistent with his diagnosis. ASSETS: Supportive living at the [facility] facility, supportive family. REACTION TO HOSPITALIZATION: The patient oblivious of this. IMPRESSION: Major neurocognitive disorder, Alzheimer, vascular with delusion, depression, behavioral disturbance; anxiety disorder, unspecified; impulse control disorder, unspecified. Rest unchanged from above. PLAN: Admit to Geropsychiatry Unit at [facility]. I will see the patient daily individually from a psychiatric standpoint. Medical followup with Dr. Alexandre/Dr. Waller. Continue the patient on his current psychotropics. Remeron 7.5 mg at bedtime, Namenda 10 mg b.i.d., Exelon 6 mg b.i.d., Seroquel 12.5 mg at noon, trazodone 50 mg at bedtime p.r.n., october repeat x 1. I was called around midnight of 04/02/2020 and 04/03/2020 by nursing staff. The patient was extremely agitated, disruptive, restless in and out of other patients' rooms, not sleeping. We did initiate Zyprexa p.r.n. and trazodone 50 mg at bedtime p.r.n., october repeat x 1 for insomnia. ESTIMATED LENGTH OF STAY: 10-12 days. DISPOSITION: Plans back to residential when stable. GEOVANI VIEIRA MD DR: RUDY/fausto JOB#: [id number] / [id number]
[2020-04-04 06:16] VITALS: BP 143/83
--- NOTE | 2020-04-04 06:57 | PDOC ---
Exam Note: Hiren Note: This note is a late entry for 04/03/2020 covers elements not covered in my initial note. Subjective: The patient was seen face to face in the evening of 04/03/2020 with Ariel LINDQUIST. Discussed with nursing staff, reviewed the chart. He slept 3 hours previous night. He has been wandering, restless. Nursing staff had called me around midnight. Last night he was anxious, restless, still getting into others rooms, not redirectable. We did start Zyprexa p.r.n. and trazodone p.r.n. Review of Systems: Ambulation impaired. No CV, , pulmonary, eye, ENT system symptoms on review. Mental Status Exam: Oriented to himself. Insight and judgment, recent and remote memory, attention and concentration, fund of knowledge is poor consistent with his diagnoses. Laboratory Data: Reviewed. Impression: Major neurocognitive disorder Alzheimers vascular with delusion, depression, behavioral disturbance. Anxiety disorder unspecified. Impulse cont rol disorder unspecified. Plan: Start Zoloft 25 mg a day for 3 days, then 50 mg a day. Continue rest unchanged. Assessment: Vital Signs/I&O: Vital Signs Date Time Temp Pulse Resp B/P (MAP) Pulse Ox O2 Delivery O2 Flow Rate FiO2 04/04/20 06:16 97.6 70 18 143/83 (103) 97 04/02/20 13:30 Room Air I & O 04/03/20 04/03/20 04/04/20 15:00 23:00 07:00 Intake Total 560 ml 240 ml Balance 560 ml 240 ml Current Medications: Meds: Current Medications Medications (Trade) Dose Ordered Sig/Nelly Route PRN Reason Start Time Stop Time Status Last Admin Dose Admin Aspirin (Aspirin Chewable) 81 mg DAILY PO 04/03/20 09:00 04/03/20 08:45 Cyanocobalamin (Vitamin B-12) 1,000 mcg DAILY PO 04/03/20 09:00 04/03/20 08:45 Lisinopril (Prinivil) 2.5 mg DAILY PO 04/03/20 09:00 04/03/20 08:45 Metoprolol Succinate (Toprol Xl) 12.5 mg DAILY PO 04/03/20 09:00 04/03/20 08:48 Quetiapine Fumarate (SEROquel) 12.5 mg DAILY@1200 PO 04/03/20 12:00 04/03/20 12:14 I have reviewed the current psychotropics carefully including drug interactions. Risk benefit ratio favors no change other than as noted in my dictated progress note. Diagnosis: Problems: (1) Impulse control disorder, unspecified (2) Anxiety disorder, unspecified (3) Dementia, vascular, with depression (4) Dementia, vascular, with delusions (5) Dementia in Alzheimer's disease with depression (6) Dementia in Alzheimer's disease with delusions (7) Dementia of the Alzheimer's type with early onset with behavioral disturbance (8) Major neurocognitive disorder (9) Dementia in Alzheimer's disease with early onset with behavioral disturbance GEOVANI VIEIRA MD Apr 04, 2020 06:57
[2020-04-04] MEDS: ASPIRIN CHEWABLE 81 MG TABLET. PO SCH (09:27)
[2020-04-04] MEDS: CYANOCOBALAMIN (VITAMIN B-12) 1,000 MCG TABLET. PO SCH (09:27)
[2020-04-04] MEDS: MEMANTINE 10 MG TABLET. PO SCH ×2 (09:27→19:57)
[2020-04-04] MEDS: LISINOPRIL 2.5 MG TABLET PO SCH (09:28)
[2020-04-04] MEDS: METOPROLOL SUCC 24HR ER 25 MG TAB.ER.24H. PO SCH (09:28)
[2020-04-04] MEDS: RIVASTIGMINE 6 MG PO SCH (09:28)
[2020-04-04] MEDS: GABAPENTIN 300 MG CAPSULE. PO SCH ×3 (09:28→19:57)
[2020-04-04] MEDS: AMIODARONE HCL 200 MG TABLET. PO SCH (09:30)
[2020-04-04] MEDS: SERTRALINE 25 MG TABLET. PO SCH (09:31)
--- NOTE | 2020-04-04 11:00 | NUR ---
WEEKLY ACTIVITY THERAPY NOTE Date of Admission: 04/02 Date of AT Assessment: TBD Precipitating behaviors that initiated intake and admission: Patient was reported to be combative towards staff at facility, flipping tables, and increasingly aggressive. Goal aimed: TBD Initial Goal: TBD Weekly progress towards goal: NA Group participation level: zero Weekly highlights: Behaviors observed: wandering, easy to redirect, accepting when people help put on his mask Plan: meet/ assess Pt Beneficial adaptations:
[2020-04-04] MEDS: QUEtiapine 25 MG TABLET. PO SCH (12:39)
[2020-04-04 15:40] VITALS: BP 126/76
--- NOTE | 2020-04-04 18:07 | NUR ---
Nursing note: Pt has been wandering around the unit for most of the shift, occasionally sitting in his room or in the chairs located in the hallways. He has been pleasant, med compliant, and cooperative. No behaviors noted. Will continue to monitor.
[2020-04-04] MEDS: traZODone 50 MG TABLET. PO SCH (19:57)
[2020-04-04] MEDS: ATORVASTATIN CALCIUM 20 MG TABLET PO SCH (19:57)
[2020-04-04] MEDS: MIRTAZAPINE 7.5 MG TABLET. PO SCH (19:57)
--- NOTE | 2020-04-04 21:29 | NUR ---
Nursing Note Pt wanders the unit mumbling to himself, confused and seems to have poor vision vs issues with comprehension. Instructed him to please sit in the chair, and he walked by it say what chair what chair over and over. Bumps into the chair leg, and just keeps going. Compliant with meds in pudding.
--- NOTE | 2020-04-04 22:14 | PDOC ---
Exam Note: Hiren Note: Please also refer to the separate dictated note~for this date of service dictated separately.~Patient seen individually. Discussed the patient with Nursing staff reviewed the chart.~Reviewed interim history and current functioning. Reviewed vital signs,~Labs/ Radiology~and current medications noted below. Continue current treatment with the changes noted in the dictated addendum note Assessment: Vital Signs/I&O: Vital Signs Date Time Temp Pulse Resp B/P (MAP) Pulse Ox O2 Delivery O2 Flow Rate FiO2 04/04/20 15:40 97.6 70 16 126/76 (93) 94 04/02/20 13:30 Room Air I & O 04/03/20 04/03/20 04/04/20 15:00 23:00 07:00 Intake Total 560 ml 240 ml Balance 560 ml 240 ml Current Medications: Meds: Current Medications Medications (Trade) Dose Ordered Sig/Nelly Route PRN Reason Start Time Stop Time Status Last Admin Dose Admin Amiodarone HCl (Cordarone) 200 mg DAILY PO 04/04/20 09:00 04/04/20 09:30 Sertraline HCl (Zoloft) 25 mg DAILY PO 04/04/20 09:00 04/06/20 23:50 04/04/20 09:31 I have reviewed the current psychotropics carefully including drug interactions. Risk benefit ratio favors no change other than as noted in my dictated progress note. Diagnosis: Problems: (1) Impulse control disorder, unspecified (2) Anxiety disorder, unspecified (3) Dementia, vascular, with depression (4) Dementia, vascular, with delusions (5) Dementia in Alzheimer's disease with depression (6) Dementia in Alzheimer's disease with delusions (7) Dementia of the Alzheimer's type with early onset with behavioral disturbance (8) Major neurocognitive disorder GEOVANI VIEIRA MD Apr 04, 2020 22:14
[2020-04-05 06:48] VITALS: BP 99/64
[2020-04-05] MEDS: ASPIRIN CHEWABLE 81 MG TABLET. PO SCH (08:17)
[2020-04-05] MEDS: MEMANTINE 10 MG TABLET. PO SCH ×2 (08:18→21:17)
[2020-04-05] MEDS: CYANOCOBALAMIN (VITAMIN B-12) 1,000 MCG TABLET. PO SCH (08:18)
[2020-04-05] MEDS: GABAPENTIN 300 MG CAPSULE. PO SCH ×3 (08:18→21:18)
[2020-04-05] MEDS: SERTRALINE 25 MG TABLET. PO SCH (08:19)
[2020-04-05] MEDS: AMIODARONE HCL 200 MG TABLET. PO SCH (08:19)
[2020-04-05] MEDS: LISINOPRIL 2.5 MG TABLET PO SCH (08:20)
[2020-04-05] MEDS: METOPROLOL SUCC 24HR ER 25 MG TAB.ER.24H. PO SCH (08:20)
--- NOTE | 2020-04-05 12:25 | NUR ---
ACTIVITY THERAPY ASSESSMENT completed based on observation, notes, and interview. Pt was wandering around hallway with food in his hand. Pt was complaint and said that he could answer questions.AT asked pt if we could return to his room for the assessment and pt said yes but continued to wander the emanuel. The assessment continued in the hallway as pt continued to wander. Pt was calm, pleasant and controlled during time of the assessment. Pt was unable to recall facts and details and was inaudible at times. Pt is unaware of surroundings or reason for admission. Pt needs hand over hand or physial prompting to complete a task. Initial goal aimed to increase time management and stimulation skills. Pt will participate in at least one individual or group Activity Therapy session before discharge. Addendum: 04/11/20 at 1345 by ESTEBAN POOLE ACT Repeat goal 04/11 Addendum: 04/18/20 at 1325 by ESTEBAN POOLE ACT Goal changed 04/18: Pt. will participate in at least three individual or group Activity Therapy session before discharge.
[2020-04-05] MEDS: QUEtiapine 25 MG TABLET. PO SCH (12:27)
[2020-04-05 16:04] VITALS: BP 133/81
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
--- NOTE | 2020-04-05 16:52 | TX PLAN ---
Interdisciplinary Tx Plan Admission Information Apr 02, 2020 at 13:33 Legal Status (on Admission): Voluntary DPOA/Guardian Name: Mria Richard Contact Other Contact Name: [facility] Other Contact Verified Code Status: DNR Allergies: Coded Allergies: Penicillins (Verified Allergy, Intermediate, 03/28/20) donepezil (Verified Allergy, Intermediate, 03/28/20) galantamine (Verified Allergy, Intermediate, 03/28/20) Diagnoses Primary Diagnosis: Major neurocognitive disorder, Vascular Reasons for Admission: Aggressive, Combative, Poor impulse control Problem in Patient's Words: He always wants to leave. Always tells them he is devising a plan to "break out of this place". Additional Admission Comments: According to the intake, pt is aggressive, put his hands on staff's neck, tried to bite, punching licona and flipped tables when redirected for trying to leave. Problems Active Problems: Wandering Restless Agitation Inactive Problems: Medication compliant Pt Strengths/Limitations Ability for Center: Poor Cognitive Functioning/Ability: Fair Communication Skills/Ability: Fair Financial Resources: Fair Insight/Judgement: Poor Intellectual Ability: Fair Physical Health: Fair Social Skills: Poor Stability in Family: Good Stability in School/Work: Poor Verbal Skills: Fair Discharge Criteria Discharge Criteria: Adequate arrangements @DC, Improved behavior, Improved mood/thought Preliminary Discharge Plan Preliminary DC Plan: Current Living Arrange. Special Precautions Fall Risk: Low Initial D/C Plan Pt will return to [facility] once stable Identified Discharge Needs: Follow up with psychiatrist Currently Utilized Resources Currently Utilized Resources/P: Primary Care Physician [place] Services Identified Problems/Hx/Goals Objectives/Short-Term Goals Short Term Goals: Dec. Aggression, Dec. Outbursts, Medication Stabilization, Monitor Med Effects Short Term Goals in Patient's: I want to get out of here Interventions/Frequency Staff Interventions/Frequency&: Psychiatrist to assess pt at least 3x per week for medication management. Social work to assess pt at least 2x per week to assess discharge needs, planning goals and barriers. Nursing to assess pt behaviors, medication effects and complete 15 minute checks. Encourage participation in group activities (if applicable) or 1:1 engagement as deemed by the activities assessment. History Vocational History: Pt worked for the [employer] for over 20 years. Pt ended up having a back injury and had to retire early. Education: Pt graduated HS (12th grade) Community Follow-up Primary Care Physician [facility] Treatment Plan Explained Patient/College President had this treatment plan explained to him/her as indicated by the signature below and has been given the opportunity to ask questions and make suggestions: Date: Patient/College President Signature: Patient/College President Decline: DEENA Bryant Apr 05, 2020 16:52
--- NOTE | 2020-04-05 17:55 | NUR ---
Pt up adl in halls, wandering. Has been compliant with meds and cares.
[2020-04-05] MEDS: MIRTAZAPINE 7.5 MG TABLET. PO SCH (21:17)
[2020-04-05] MEDS: ATORVASTATIN CALCIUM 20 MG TABLET PO SCH (21:18)
[2020-04-05] MEDS: traZODone 50 MG TABLET. PO SCH (21:19)
--- NOTE | 2020-04-05 22:01 | PDOC ---
Exam Note: Hiren Note: Please also refer to the separate dictated note~for this date of service dictated separately.~Patient seen individually. Discussed the patient with Nursing staff reviewed the chart.~Reviewed interim history and current functioning. Reviewed vital signs,~Labs/ Radiology~and current medications noted below. Continue current treatment with the changes noted in the dictated addendum note Assessment: Vital Signs/I&O: Vital Signs Date Time Temp Pulse Resp B/P (MAP) Pulse Ox O2 Delivery O2 Flow Rate FiO2 04/05/20 16:04 97.6 89 18 133/81 (98) 93 04/02/20 13:30 Room Air I & O 04/04/20 04/04/20 04/05/20 15:00 23:00 07:00 Intake Total 685 ml 456 ml Balance 685 ml 456 ml Current Medications: I have reviewed the current psychotropics carefully including drug interactions. Risk benefit ratio favors no change other than as noted in my dictated progress note. Diagnosis: Problems: (1) Impulse control disorder (2) Anxiety disorder, unspecified (3) Dementia, vascular, with depression (4) Dementia, vascular, with delusions (5) Dementia in Alzheimer's disease with depression (6) Dementia in Alzheimer's disease with delusions (7) Dementia of the Alzheimer's type with early onset with behavioral disturbance (8) Major neurocognitive disorder GEOVANI VIEIRA MD Apr 05, 2020 22:01
--- NOTE | 2020-04-05 23:17 | NUR ---
Patient is in his room on assumption of care, awake in bed. He is compliant with assessments and medications crushed in pudding. No agitation. No complaints of pain or discomfort. Patient appears to be sleeping comfortably at present time. Will continue to monitor.
[2020-04-06 06:16] VITALS: BP 109/70
--- NOTE | 2020-04-06 07:01 | PDOC ---
Exam Note: Hiren Note: This note is a late entry for 04/04/2020 covers elements not covered in my initial note. Subjective: The patient was seen face to face in the morning of 04/04/2020 for treatment meeting with Mehreen Beyer Nicky (social service staff), Yamini, Activity Therapy, and Sangeeta LINDQUIST. Discussed with nursing staff, reviewed the chart. He was also seen face to face in the evening. He slept 7- 1/4 hours previous night. He may have some poor vision. He is bumping into things and wandering, removes his face mask. Review of Systems: Ambulation impaired. No CV, , pulmonary, ENT system symptoms on review. Mental Status Exam: Oriented to himself. Insight and judgment, recent and re mote memory, attention and concentration, fund of knowledge is poor consistent with his diagnoses. The patient is very oblivious of his surroundings, very confused. Laboratory Data: Reviewed. Impression: Major neurocognitive disorder Alzheimers vascular with delusion, depression, behavioral disturbance. Anxiety disorder unspecified. Impulse control disorder unspecified. Plan: Continue psychotropics unchanged. Assessment: Vital Signs/I&O: Vital Signs Date Time Temp Pulse Resp B/P (MAP) Pulse Ox O2 Delivery O2 Flow Rate FiO2 04/06/20 06:16 97.9 63 16 109/70 (83) 95 04/02/20 13:30 Room Air I & O 04/05/20 04/05/20 04/06/20 15:00 23:00 07:00 Intake Total 910 ml 360 ml 100 ml Balance 910 ml 360 ml 100 ml Current Medications: I have reviewed the current psychotropics carefully including drug interactions. Risk benefit ratio favors no change other than as noted in my dictated progress note. Diagnosis: Problems: (1) Impulse control disorder, unspecified (2) Anxiety disorder, unspecified (3) Dementia, vascular, with depression (4) Dementia, vascular, with delusions (5) Dementia in Alzheimer's disease with depression (6) Dementia in Alzheimer's disease with delusions (7) Dementia of the Alzheimer's type with early onset with behavioral disturbance (8) Major neurocognitive disorder GEOVANI VIEIRA MD Apr 06, 2020 07:01
--- NOTE | 2020-04-06 07:26 | PDOC ---
Exam Note: Hiren Note: This note is a late entry for 04/05/2020 covers elements not covered in my initial note. Subjective: The patient was seen face to face in the evening of 04/05/2020 with Nell LINDQUIST. Discussed with nursing staff, reviewed the chart. The patient slept 7-1/4 hours previous night. The patient has been wandering up and down, keeps his eyes closed. Nursing staff assisted with his meals. Review of Systems: Ambulation impaired. No CV, , pulmonary, eye, ENT system symptoms on review. Mental Status Exam: Oriented to himself. Insight and judgment, recent and rem ote memory, attention and concentration, fund of knowledge is poor consistent with his diagnoses. Laboratory Data: Reviewed. Impression: Major neurocognitive disorder Alzheimers vascular with delusion, depression, behavioral disturbance. Anxiety disorder unspecified. Impulse control disorder unspecified. Plan: Continue psychotropics unchanged. Assessment: Vital Signs/I&O: Vital Signs Date Time Temp Pulse Resp B/P (MAP) Pulse Ox O2 Delivery O2 Flow Rate FiO2 04/06/20 06:16 97.9 63 16 109/70 (83) 95 04/02/20 13:30 Room Air I & O 04/05/20 04/05/20 04/06/20 15:00 23:00 07:00 Intake Total 910 ml 360 ml 100 ml Balance 910 ml 360 ml 100 ml Current Medications: I have reviewed the current psychotropics carefully including drug interactions. Risk benefit ratio favors no change other than as noted in my dictated progress note. Diagnosis: Problems: (1) Impulse control disorder, unspecified (2) Anxiety disorder, unspecified (3) Dementia, vascular, with depression (4) Dementia, vascular, with delusions (5) Dementia in Alzheimer's disease with depression (6) Dementia in Alzheimer's disease with delusions (7) Dementia of the Alzheimer's type with early onset with behavioral disturbance (8) Major neurocognitive disorder GEOVANI VIEIRA MD Apr 06, 2020 07:26
[2020-04-06] MEDS: ASPIRIN CHEWABLE 81 MG TABLET. PO SCH (08:05)
[2020-04-06] MEDS: LISINOPRIL 2.5 MG TABLET PO SCH (08:05)
[2020-04-06] MEDS: CYANOCOBALAMIN (VITAMIN B-12) 1,000 MCG TABLET. PO SCH (08:05)
[2020-04-06] MEDS: SERTRALINE 25 MG TABLET. PO SCH (08:05)
[2020-04-06] MEDS: GABAPENTIN 300 MG CAPSULE. PO SCH ×3 (08:06→19:56)
[2020-04-06] MEDS: MEMANTINE 10 MG TABLET. PO SCH ×2 (08:06→19:57)
[2020-04-06] MEDS: METOPROLOL SUCC 24HR ER 25 MG TAB.ER.24H. PO SCH (08:06)
[2020-04-06] MEDS: AMIODARONE HCL 200 MG TABLET. PO SCH (08:06)
[2020-04-06] MEDS: CHOLECALCIFEROL (VITAMIN D3) 50,000 UNIT CAPSULE PO SCH (08:09)
[2020-04-06 08:56] LABS: BASO % 1 % (0-3); EOS # 0.1 x10^3/uL (0.0-0.7); EOS % 3 % (0-3); HEMATOCRIT 34.6 % (39.0-53.0); LYMPH % 20 % (24-48); MEAN CORPUSCULAR HEMOGLOBIN 29 pg (25-35); MEAN CORPUSCULAR HGB CONC 32 g/dL (31-37); MEAN CORPUSCULAR VOLUME 92 fL (79-100); MONO # 0.5 x10^3/uL (0.0-1.1); MONO % 9 % (0-9); NEUT # 3.4 x10^3uL (1.8-7.7); NEUT % 67 % (31-73); PLATELET COUNT 181 x10^3/uL (140-400); RED BLOOD COUNT 3.75 x10^6/uL (4.30-5.70); WHITE BLOOD COUNT 5.1 x10^3/uL (4.0-11.0)
[2020-04-06 09:33] LABS: ALBUMIN 3.1 g/dL (3.4-5.0); CALCIUM 8.4 mg/dL (8.5-10.1); CREATININE 1.3 mg/dL (0.7-1.3); GFR 53.7; POTASSIUM 3.8 mmol/L (3.5-5.1); TOTAL BILIRUBIN 0.3 mg/dL (0.2-1.0); TOTAL PROTEIN 6.1 g/dL (6.4-8.2)
[2020-04-06] MEDS: QUEtiapine 25 MG TABLET. PO SCH (12:51)
[2020-04-06] MEDS: MAGNESIUM HYDROXIDE 2,400 MG/30 ML ORAL.SUSP. PO PRN (14:27)
--- NOTE | 2020-04-06 16:35 | NUR ---
Pt has been up in halls. Restless and wandering. Pt spoke with dtr on phone. Visit went well.
[2020-04-06 16:36] VITALS: BP 117/69
[2020-04-06] MEDS: MIRTAZAPINE 7.5 MG TABLET. PO SCH (19:56)
[2020-04-06] MEDS: ATORVASTATIN CALCIUM 20 MG TABLET PO SCH (19:57)
[2020-04-06] MEDS: traZODone 50 MG TABLET. PO SCH (19:57)
--- NOTE | 2020-04-06 22:11 | PDOC ---
Exam Note: Hiren Note: Please also refer to the separate dictated note~for this date of service dictated separately.~Patient seen individually. Discussed the patient with Nursing staff reviewed the chart.~Reviewed interim history and current functioning. Reviewed vital signs,~Labs/ Radiology~and current medications noted below. Continue current treatment with the changes noted in the dictated addendum note Assessment: Vital Signs/I&O: Vital Signs Date Time Temp Pulse Resp B/P (MAP) Pulse Ox O2 Delivery O2 Flow Rate FiO2 04/06/20 16:36 98.6 73 20 117/69 (85) 97 04/02/20 13:30 Room Air I & O 04/05/20 04/05/20 04/06/20 15:00 23:00 07:00 Intake Total 910 ml 360 ml 100 ml Balance 910 ml 360 ml 100 ml Labs: Laboratory Tests Test 04/06/20 08:00 White Blood Count 5.1 x10^3/uL (4.0-11.0) Red Blood Count 3.75 x10^6/uL (4.30-5.70) L Hemoglobin 11.0 g/dL (13.0-17.5) L Hematocrit 34.6 % (39.0-53.0) L Mean Corpuscular Volume 92 fL (79-100) Mean Corpuscular Hemoglobin 29 pg (25-35) Mean Corpuscular Hemoglobin Concent 32 g/dL (31-37) Red Cell Distribution Width 15.0 % (11.5-14.5) H Platelet Count 181 x10^3/uL (140-400) Neutrophils (%) (Auto) 67 % (31-73) Lymphocytes (%) (Auto) 20 % (24-48) L Monocytes (%) (Auto) 9 % (0-9) Eosinophils (%) (Auto) 3 % (0-3) Basophils (%) (Auto) 1 % (0-3) Neutrophils # (Auto) 3.4 x10^3uL (1.8-7.7) Lymphocytes # (Auto) 1.0 x10^3/uL (1.0-4.8) Monocytes # (Auto) 0.5 x10^3/uL (0.0-1.1) Eosinophils # (Auto) 0.1 x10^3/uL (0.0-0.7) Basophils # (Auto) 0.0 x10^3/uL (0.0-0.2) Sodium Level 143 mmol/L (136-145) Potassium Level 3.8 mmol/L (3.5-5.1) Chloride Level 108 mmol/L (98-107) H Carbon Dioxide Level 27 mmol/L (21-32) Anion Gap 8 (6-14) Blood Urea Nitrogen 35 mg/dL (8-26) H Creatinine 1.3 mg/dL (0.7-1.3) Estimated GFR (Cockcroft-Gault) 53.7 BUN/Creatinine Ratio 27 (6-20) H Glucose Level 90 mg/dL (70-99) Calcium Level 8.4 mg/dL (8.5-10.1) L Total Bilirubin 0.3 mg/dL (0.2-1.0) Aspartate Amino Transferase (AST) 16 U/L (15-37) Alanine Aminotransferase (ALT) 23 U/L (16-63) Alkaline Phosphatase 54 U/L (46-116) Total Protein 6.1 g/dL (6.4-8.2) L Albumin 3.1 g/dL (3.4-5.0) L Albumin/Globulin Ratio 1.0 (1.0-1.7) Current Medications: Meds: Current Medications Medications (Trade) Dose Ordered Sig/Nelly Route PRN Reason Start Time Stop Time Status Last Admin Dose Admin Vitamin D (Vitamin D3) 50,000 unit WEEKLY PO 04/06/20 09:00 04/06/20 08:09 Magnesium Hydroxide (Milk Of Magnesia) 2,400 mg PRN DAILY PRN PO CONSTIPATION 04/06/20 14:30 04/06/20 14:27 I have reviewed the current psychotropics carefully including drug interactions. Risk benefit ratio favors no change other than as noted in my dictated progress note. Diagnosis: Problems: (1) Impulse control disorder, unspecified (2) Anxiety disorder, unspecified (3) Dementia, vascular, with depression (4) Dementia, vascular, with delusions (5) Dementia in Alzheimer's disease with depression (6) Dementia in Alzheimer's disease with delusions (7) Dementia of the Alzheimer's type with early onset with behavioral disturbance (8) Major neurocognitive disorder GEOVANI VIEIRA MD Apr 06, 2020 22:11
--- NOTE | 2020-04-06 23:32 | NUR ---
Pt has been wandering around unit in and out of pt's rooms this evening. Compliant with redirection. Disorganized and restless. Compliant with crushed medications.
[2020-04-07] MEDS: MAGNESIUM HYDROXIDE 2,400 MG/30 ML ORAL.SUSP. PO PRN (05:40)
[2020-04-07 06:07] VITALS: BP 158/75
[2020-04-07] MEDS: GABAPENTIN 300 MG CAPSULE. PO SCH ×3 (08:44→20:50)
[2020-04-07] MEDS: AMIODARONE HCL 200 MG TABLET. PO SCH (08:44)
[2020-04-07] MEDS: METOPROLOL SUCC 24HR ER 25 MG TAB.ER.24H. PO SCH (08:45)
[2020-04-07] MEDS: LISINOPRIL 2.5 MG TABLET PO SCH (08:45)
[2020-04-07] MEDS: CYANOCOBALAMIN (VITAMIN B-12) 1,000 MCG TABLET. PO SCH (08:45)
[2020-04-07] MEDS: ASPIRIN CHEWABLE 81 MG TABLET. PO SCH (08:45)
[2020-04-07] MEDS: MEMANTINE 10 MG TABLET. PO SCH ×2 (08:45→20:50)
[2020-04-07] MEDS: SERTRALINE 50 MG TABLET. PO SCH (08:47)
[2020-04-07] MEDS: QUEtiapine 25 MG TABLET. PO SCH (12:33)
[2020-04-07 16:12] VITALS: BP 127/67
--- NOTE | 2020-04-07 16:25 | NUR ---
Pt up adl in halls. Wandering, restless, Has been pleasant and redirectable. Compliant with meds.
[2020-04-07] MEDS ORDERED: BISACODYL 10 MG SUPP.RECT PR PRN (19:45)
[2020-04-07] MEDS: MIRTAZAPINE 7.5 MG TABLET. PO SCH (20:50)
[2020-04-07] MEDS: ATORVASTATIN CALCIUM 20 MG TABLET PO SCH (20:50)
[2020-04-07] MEDS: traZODone 50 MG TABLET. PO SCH (20:50)
[2020-04-07] MEDS ORDERED: PENICILLIN G BENZATHINE LA 1,200,000 UNIT/2 ML DISP.SYRIN. IM SCH (21:00)
--- NOTE | 2020-04-07 22:00 | NUR ---
Pt wandering the unit this evening. Pleasantly confused. Compliant with crushed medications. No agitation.
[2020-04-08 05:56] VITALS: BP 119/68
--- NOTE | 2020-04-08 06:54 | PDOC ---
Exam Note: Hiren Note: This note is a late entry for 04/06/2020 covers elements not covered in my initial note. Subjective: The patient was seen face to face in the evening of 04/06/2020 with Nell LINDQUIST. Discussed with nursing staff, reviewed the chart. The patient slept 9 hours previous night. He is wandering, confused. He did have telephone call with his daughter, did well. Review of Systems: Poor vision. Ambulation impaired. No CV, , pulmonary, e ye, ENT system symptoms on review. Mental Status Exam: Oriented to himself. Insight and judgment, recent and remote memory, attention and concentration, fund of knowledge is poor consistent with his diagnoses. Laboratory Data: Reviewed. Impression: Major neurocognitive disorder Alzheimers vascular with delusion, depression, behavioral disturbance. Anxiety disorder unspecified. Impulse control disorder unspecified. Plan: Continue psychotropics unchanged. Assessment: Vital Signs/I&O: Vital Signs Date Time Temp Pulse Resp B/P (MAP) Pulse Ox O2 Delivery O2 Flow Rate FiO2 04/08/20 05:56 97.8 51 16 119/68 (85) 95 04/02/20 13:30 Room Air I & O 04/07/20 04/07/20 04/08/20 15:00 23:00 07:00 Intake Total 120 ml 480 ml Balance 120 ml 480 ml Current Medications: Meds: Current Medications Medications (Trade) Dose Ordered Sig/Nelly Route PRN Reason Start Time Stop Time Status Last Admin Dose Admin Sertraline HCl (Zoloft) 50 mg DAILY PO 04/07/20 09:00 04/07/20 08:47 Bisacodyl (Dulcolax Supp) 10 mg PRN DAILY PRN DC CONSTIPATION 04/07/20 19:45 04/08/20 06:01 I have reviewed the current psychotropics carefully including drug interactions. Risk benefit ratio favors no change other than as noted in my dictated progress note. Diagnosis: Problems: (1) Anxiety disorder, unspecified (2) Dementia, vascular, with depression (3) Dementia, vascular, with delusions (4) Dementia in Alzheimer's disease with depression (5) Dementia in Alzheimer's disease with delusions (6) Dementia of the Alzheimer's type with early onset with behavioral disturbance (7) Major neurocognitive disorder (8) Impulse control disorder GEOVANI VIEIRA MD Apr 08, 2020 06:54
--- NOTE | 2020-04-08 07:11 | PDOC ---
Exam Note: Hiren Note: This note is a late entry for 04/07/2020 covers elements not covered in my initial note. Subjective: The patient was seen face to face in the evening of 04/07/2020 with Nell LINDQUIST. Discussed with nursing staff, reviewed the chart. He remains confused, wandering. He has been restarted on penicillin per Dr. Waller additionally for staphylococcus in his urine and he was also positive in syphilis screen. Review of Systems: Ambulation impaired. No CV, , pulmonary, ENT system symptoms on review. Poor vision. Mental Status Exam: Oriented to himself. Insight and judgment, recent and remote memory, attention and concentration, fund of knowledge is poor consistent with his diagnoses. At times he has been hallucinating, talking to himself. Laboratory Data: Reviewed. Impression: Major neurocognitive disorder Alzheimers vascular with delusion, depression, behavioral disturbance. Anxiety disorder unspecified. Impulse control disorder unspecified. Plan: Continue psychotropics unchanged. Assessment: Vital Signs/I&O: Vital Signs Date Time Temp Pulse Resp B/P (MAP) Pulse Ox O2 Delivery O2 Flow Rate FiO2 04/08/20 05:56 97.8 51 16 119/68 (85) 95 04/02/20 13:30 Room Air I & O 04/07/20 04/07/20 04/08/20 14:59 22:59 06:59 Intake Total 120 ml 480 ml Balance 120 ml 480 ml Current Medications: Meds: Current Medications Medications (Trade) Dose Ordered Sig/Nelly Route PRN Reason Start Time Stop Time Status Last Admin Dose Admin Sertraline HCl (Zoloft) 50 mg DAILY PO 04/07/20 09:00 04/07/20 08:47 Bisacodyl (Dulcolax Supp) 10 mg PRN DAILY PRN IN CONSTIPATION 04/07/20 19:45 04/08/20 06:01 I have reviewed the current psychotropics carefully including drug interactions. Risk benefit ratio favors no change other than as noted in my dictated progress note. Diagnosis: Problems: (1) Impulse control disorder, unspecified (2) Anxiety disorder, unspecified (3) Dementia, vascular, with depression (4) Dementia, vascular, with delusions (5) Dementia in Alzheimer's disease with depression (6) Dementia in Alzheimer's disease with delusions (7) Dementia of the Alzheimer's type with early onset with behavioral disturbance (8) Major neurocognitive disorder GEOVANI VIEIRA MD Apr 08, 2020 07:11
[2020-04-08] MEDS: LISINOPRIL 2.5 MG TABLET PO SCH (09:21)
[2020-04-08] MEDS: AMIODARONE HCL 200 MG TABLET. PO SCH (09:21)
[2020-04-08] MEDS: SERTRALINE 50 MG TABLET. PO SCH (09:21)
[2020-04-08] MEDS: GABAPENTIN 300 MG CAPSULE. PO SCH ×3 (09:21→20:37)
[2020-04-08] MEDS: ASPIRIN CHEWABLE 81 MG TABLET. PO SCH (09:21)
[2020-04-08] MEDS: METOPROLOL SUCC 24HR ER 25 MG TAB.ER.24H. PO SCH (09:22)
[2020-04-08] MEDS: CYANOCOBALAMIN (VITAMIN B-12) 1,000 MCG TABLET. PO SCH (09:22)
[2020-04-08] MEDS: MEMANTINE 10 MG TABLET. PO SCH ×2 (09:22→20:37)
[2020-04-08] MEDS: PENICILLIN G BENZATHINE LA 1,200,000 UNIT/2 ML DISP.SYRIN. IM SCH (12:14)
[2020-04-08] MEDS: QUEtiapine 25 MG TABLET. PO SCH (12:14)
[2020-04-08 16:00] VITALS: BP 91/60
--- NOTE | 2020-04-08 18:30 | NUR ---
Patient has been calm, compliant, and pleasantly confused throughout this shift. Patient has spent most of the shift wandering through out the unit; he was easily redirected out of other patient's rooms. Patient was better able to hold a conversation, though was tangental. Will continue to monitor and report to oncoming shift.
[2020-04-08 19:38] VITALS: BP 108/61
[2020-04-08] MEDS: ATORVASTATIN CALCIUM 20 MG TABLET PO SCH (20:37)
[2020-04-08] MEDS: traZODone 50 MG TABLET. PO SCH (20:37)
[2020-04-08] MEDS: MIRTAZAPINE 7.5 MG TABLET. PO SCH (20:37)
--- NOTE | 2020-04-08 22:08 | PDOC ---
Exam Note: Hiren Note: Please also refer to the separate dictated note~for this date of service dictated separately.~Patient seen individually. Discussed the patient with Nursing staff reviewed the chart.~Reviewed interim history and current functioning. Reviewed vital signs,~Labs/ Radiology~and current medications noted below. Continue current treatment with the changes noted in the dictated addendum note Assessment: Vital Signs/I&O: Vital Signs Date Time Temp Pulse Resp B/P (MAP) Pulse Ox O2 Delivery O2 Flow Rate FiO2 04/08/20 19:38 76 108/61 (77) 04/08/20 16:00 97.9 19 97 04/02/20 13:30 Room Air I & O 0 04/07/20 04/07/20 04/08/20 15:00 23:00 07:00 Intake Total 120 ml 480 ml Balance 120 ml 480 ml Current Medications: Meds: Current Medications Medications (Trade) Dose Ordered Sig/Nelly Route PRN Reason Start Time Stop Time Status Last Admin Dose Admin Penicillin G Benzathine (Bicillin L-A) 2,400,000 unit WEEKLY IM 04/08/20 09:00 04/15/20 09:01 04/08/20 12:14 I have reviewed the current psychotropics carefully including drug interactions. Risk benefit ratio favors no change other than as noted in my dictated progress note. Diagnosis: Problems: (1) Impulse control disorder, unspecified (2) Anxiety disorder, unspecified (3) Dementia, vascular, with depression (4) Dementia, vascular, with delusions (5) Dementia in Alzheimer's disease with depression (6) Dementia in Alzheimer's disease with delusions (7) Dementia of the Alzheimer's type with early onset with behavioral disturbance (8) Major neurocognitive disorder GEOVANI VIEIRA MD Apr 08, 2020 22:08
--- NOTE | 2020-04-08 22:38 | NUR ---
Pt in bed all evening. Compliant with crushed medications. Pleasantly confused. No agitation.
[2020-04-09 05:37] VITALS: BP 134/74
[2020-04-09] MEDS: METOPROLOL SUCC 24HR ER 25 MG TAB.ER.24H. PO SCH (08:58)
[2020-04-09] MEDS: LISINOPRIL 2.5 MG TABLET PO SCH (08:58)
[2020-04-09] MEDS: SERTRALINE 50 MG TABLET. PO SCH (08:59)
[2020-04-09] MEDS: MEMANTINE 10 MG TABLET. PO SCH ×2 (08:59→19:54)
[2020-04-09] MEDS: ASPIRIN CHEWABLE 81 MG TABLET. PO SCH (08:59)
[2020-04-09] MEDS: AMIODARONE HCL 200 MG TABLET. PO SCH (08:59)
[2020-04-09] MEDS: GABAPENTIN 300 MG CAPSULE. PO SCH ×3 (08:59→19:53)
[2020-04-09] MEDS: CYANOCOBALAMIN (VITAMIN B-12) 1,000 MCG TABLET. PO SCH (08:59)
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
--- NOTE | 2020-04-09 11:19 | NUR ---
JAZLYN returned call to Kimberly at [facility] to give her an update on pt. Both parties are able to recognize that pt does not have the means to flip tables and chairs here as he does at [facility]; furthermore, being on a locked unit decreases his ability to "get out of here". Pt is medication compliant and compliant with cares, in which Kimberly reports that it has never been an issue. JAZLYN went over the medications pt is currently on and mentioned the potential for discharge within the next 10-12 days. JAZLYN will continue to update Kimberly with changes in pt behaviors and medications as they occur.
[2020-04-09] MEDS: QUEtiapine 25 MG TABLET. PO SCH (12:10)
--- NOTE | 2020-04-09 14:16 | NUR ---
Patient has been calm, compliant, and pleasantly confused since lunch time. He has been wandering the unit and easily redirectable. Currently patient is resting quietly in bed, eyes closed, NAD. Will report to MD during rounds and continue to monitor.
[2020-04-09 16:11] VITALS: BP 136/74
[2020-04-09] MEDS: MIRTAZAPINE 7.5 MG TABLET. PO SCH (19:54)
[2020-04-09] MEDS: ATORVASTATIN CALCIUM 20 MG TABLET PO SCH (19:54)
[2020-04-09] MEDS: traZODone 50 MG TABLET. PO SCH (19:54)
--- NOTE | 2020-04-09 22:01 | PDOC ---
Exam Note: Hiren Note: Please also refer to the separate dictated note~for this date of service dictated separately.~Patient seen individually. Discussed the patient with Nursing staff reviewed the chart.~Reviewed interim history and current functioning. Reviewed vital signs,~Labs/ Radiology~and current medications noted below. Continue current treatment with the changes noted in the dictated addendum note Assessment: Vital Signs/I&O: Vital Signs Date Time Temp Pulse Resp B/P (MAP) Pulse Ox O2 Delivery O2 Flow Rate FiO2 04/09/20 16:11 97.8 50 18 136/74 (94) 97 I & O 04/08/20 04/08/20 04/09/20 15:00 23:00 07:00 Intake Total 561 ml 445 ml Balance 561 ml 445 ml Current Medications: I have reviewed the current psychotropics carefully including drug interactions. Risk benefit ratio favors no change other than as noted in my dictated progress note. Diagnosis: Problems: (1) Impulse control disorder, unspecified (2) Anxiety disorder, unspecified (3) Dementia, vascular, with depression (4) Dementia, vascular, with delusions (5) Dementia in Alzheimer's disease with depression (6) Dementia in Alzheimer's disease with delusions (7) Dementia of the Alzheimer's type with early onset with behavioral disturbance (8) Major neurocognitive disorder GEOVANI VIEIRA MD Apr 09, 2020 22:01
--- NOTE | 2020-04-09 22:34 | NUR ---
Pt wandering around the unit this evening. More irritable than usual but compliant with crushed medications in one bite of pudding.
[2020-04-10 06:19] VITALS: BP 129/70
--- NOTE | 2020-04-10 07:11 | PDOC ---
Exam Note: Hiren Note: This note is a late entry for 04/08/2020 covers elements not covered in my initial note. Subjective: The patient was seen face to face in the evening of 04/08/2020 with Ariel LINDQUIST. Discussed with nursing staff, reviewed the chart. The patient slept 5-3/4 hours previous night. I met with the patient individually in his room in the evening. He is wandering, seems to have poor vision. He did get his penicillin injection on 04/08. Review of Systems: Ambulation impaired. No CV, , pulmonary, ENT system symptoms on review. Poor vision. Mental Status Exam: Oriented to himself. He has been little more verbally interactive. Insight and judgment, recent and remote memory, attention and concentration, fund of knowledge is poor consistent with his diagnoses. At times he has been hallucinating, talking to himself. Laboratory Data: Reviewed. Impression: Major neurocognitive disorder Alzheimers vascular with delusion, depression, behavioral disturbance. Anxiety disorder unspecified. Impulse control disorder unspecified. Plan: No change from initial note. Assessment: Vital Signs/I&O: Vital Signs Date Time Temp Pulse Resp B/P (MAP) Pulse Ox O2 Delivery O2 Flow Rate FiO2 04/10/20 06:19 97.9 52 16 129/70 (89) 91 Room Air I & O 04/09/20 04/09/20 04/10/20 15:00 23:00 07:00 Intake Total 960 ml 360 ml Balance 960 ml 360 ml Current Medications: I have reviewed the current psychotropics carefully including drug interactions. Risk benefit ratio favors no change other than as noted in my dictated progress note. Diagnosis: Problems: (1) Impulse control disorder, unspecified (2) Anxiety disorder, unspecified (3) Dementia, vascular, with depression (4) Dementia, vascular, with delusions (5) Dementia in Alzheimer's disease with depression (6) Dementia in Alzheimer's disease with delusions (7) Dementia of the Alzheimer's type with early onset with behavioral disturbance (8) Major neurocognitive disorder GEOVANI VIEIRA MD Apr 10, 2020 07:11
[2020-04-10] MEDS: SERTRALINE 50 MG TABLET. PO SCH (08:54)
[2020-04-10] MEDS: LISINOPRIL 2.5 MG TABLET PO SCH (08:54)
[2020-04-10] MEDS: ASPIRIN CHEWABLE 81 MG TABLET. PO SCH (08:54)
[2020-04-10] MEDS: MEMANTINE 10 MG TABLET. PO SCH ×2 (08:54→20:20)
[2020-04-10] MEDS: CYANOCOBALAMIN (VITAMIN B-12) 1,000 MCG TABLET. PO SCH (08:54)
[2020-04-10] MEDS: GABAPENTIN 300 MG CAPSULE. PO SCH ×3 (08:54→20:20)
[2020-04-10] MEDS: METOPROLOL SUCC 24HR ER 25 MG TAB.ER.24H. PO SCH (08:55)
[2020-04-10] MEDS: AMIODARONE HCL 200 MG TABLET. PO SCH (08:55)
[2020-04-10] MEDS: QUEtiapine 25 MG TABLET. PO SCH ×2 (12:37→17:00)
[2020-04-10 15:49] VITALS: BP 114/57
--- NOTE | 2020-04-10 16:50 | NUR ---
Patient found lying on floor in [address] [facility]; another patient states he heard a bang from the [place] [facility]. Patient is drowsy, no complaints of pain, no guarding or point tenderness. Per security, video review revealed that patient squatted down, placed his hands on the ground, and then plopped himself on the floor. Vital signs were BP=93/5?; HR=75; SpO2=95%; RR=14. Patient assisted off the floor and onto a chair. Further assessment shows no changes from baseline. Will hold 17:00 seroquel; inform MD during report; and continue to monitor.
[2020-04-10] MEDS: ATORVASTATIN CALCIUM 20 MG TABLET PO SCH (20:20)
[2020-04-10] MEDS: MIRTAZAPINE 7.5 MG TABLET. PO SCH (20:20)
[2020-04-10] MEDS: traZODone 50 MG TABLET. PO SCH (20:20)
--- NOTE | 2020-04-10 22:07 | PDOC ---
Exam Note: Hiren Note: Please also refer to the separate dictated note~for this date of service dictated separately.~Patient seen individually. Discussed the patient with Nursing staff reviewed the chart.~Reviewed interim history and current functioning. Reviewed vital signs,~Labs/ Radiology~and current medications noted below. Continue current treatment with the changes noted in the dictated addendum note Assessment: Vital Signs/I&O: Vital Signs Date Time Temp Pulse Resp B/P (MAP) Pulse Ox O2 Delivery O2 Flow Rate FiO2 04/10/20 15:49 98.4 69 18 114/57 (76) 97 Room Air I & O 04/09/20 04/09/20 04/10/20 14:59 22:59 06:59 Intake Total 960 ml 360 ml Balance 960 ml 360 ml Current Medications: Meds: Current Medications Medications (Trade) Dose Ordered Sig/Nelly Route PRN Reason Start Time Stop Time Status Last Admin Dose Admin Quetiapine Fumarate (SEROquel) 12.5 mg 1200,1700 PO 04/10/20 12:00 04/10/20 12:37 I have reviewed the current psychotropics carefully including drug interactions. Risk benefit ratio favors no change other than as noted in my dictated progress note. Diagnosis: Problems: (1) Impulse control disorder, unspecified (2) Anxiety disorder, unspecified (3) Dementia, vascular, with depression (4) Dementia, vascular, with delusions (5) Dementia in Alzheimer's disease with depression (6) Dementia in Alzheimer's disease with delusions (7) Dementia of the Alzheimer's type with early onset with behavioral disturbance (8) Major neurocognitive disorder GEOVANI VIEIRA MD Apr 10, 2020 22:07
--- NOTE | 2020-04-11 00:50 | NUR ---
Nurses Note Pt walks up and down hallways, confused, bumps into things has very poor vision. He will respond to name and will follow simple commands. Compliant and cooperative with meds and assessment. No pain or other complaints.
[2020-04-11 06:11] VITALS: BP 121/67
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
[2020-04-11] MEDS: ASPIRIN CHEWABLE 81 MG TABLET. PO SCH (08:02)
[2020-04-11] MEDS: GABAPENTIN 300 MG CAPSULE. PO SCH ×3 (08:02→20:16)
[2020-04-11] MEDS: SERTRALINE 50 MG TABLET. PO SCH (08:03)
[2020-04-11] MEDS: LISINOPRIL 2.5 MG TABLET PO SCH (08:03)
[2020-04-11] MEDS: CYANOCOBALAMIN (VITAMIN B-12) 1,000 MCG TABLET. PO SCH (08:03)
[2020-04-11] MEDS: METOPROLOL SUCC 24HR ER 25 MG TAB.ER.24H. PO SCH (08:03)
[2020-04-11] MEDS: MEMANTINE 10 MG TABLET. PO SCH ×2 (08:04→20:17)
[2020-04-11] MEDS: AMIODARONE HCL 200 MG TABLET. PO SCH (08:04)
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
[2020-04-11] MEDS: QUEtiapine 25 MG TABLET. PO SCH ×2 (13:19→17:14)
--- NOTE | 2020-04-11 13:21 | NUR ---
WEEKLY ACTIVITY THERAPY NOTE Date of Admission: 04/02 Date of AT Assessment: 04/05 Precipitating behaviors that initiated intake and admission: Patient was reported to be combative towards staff at facility, flipping tables, and increasingly aggressive. Goal aimed: increase time management and stimulation skills Initial Goal: Pt will participate in at least one individual or group Activity Therapy session before discharge. Weekly progress towards goal: achieved, 06/21 Group participation level: minimal Weekly highlights: enjoyed apple treats on Wednesday Behaviors observed: usually wandering or sitting in the hallway with or without a mask on, needs assistance with eating, follows staff voices when redirected out of a certain area Plan: repeat goal Beneficial adaptations:
[2020-04-11] MEDS: MAGNESIUM HYDROXIDE 2,400 MG/30 ML ORAL.SUSP. PO PRN (13:26)
[2020-04-11 15:57] VITALS: BP 128/80
[2020-04-11 15:58] VITALS: BP 107/65
[2020-04-11] MEDS: MIRTAZAPINE 7.5 MG TABLET. PO SCH (20:16)
[2020-04-11] MEDS: ATORVASTATIN CALCIUM 20 MG TABLET PO SCH (20:16)
[2020-04-11] MEDS: traZODone 50 MG TABLET. PO SCH (20:17)
--- NOTE | 2020-04-11 21:59 | PDOC ---
Exam Note: Hiren Note: Please also refer to the separate dictated note~for this date of service dictated separately.~Patient seen individually. Discussed the patient with Nursing staff reviewed the chart.~Reviewed interim history and current functioning. Reviewed vital signs,~Labs/ Radiology~and current medications noted below. Continue current treatment with the changes noted in the dictated addendum note Assessment: Vital Signs/I&O: Vital Signs Date Time Temp Pulse Resp B/P (MAP) Pulse Ox O2 Delivery O2 Flow Rate FiO2 04/11/20 15:58 98.1 62 18 107/65 (79) 97 Room Air I & O 04/10/20 04/10/20 04/11/20 15:00 23:00 07:00 Intake Total 750 ml 325 ml 120 ml Balance 750 ml 325 ml 120 ml Current Medications: I have reviewed the current psychotropics carefully including drug interactions. Risk benefit ratio favors no change other than as noted in my dictated progress note. Diagnosis: Problems: (1) Impulse control disorder, unspecified (2) Anxiety disorder, unspecified (3) Dementia, vascular, with depression (4) Dementia, vascular, with delusions (5) Dementia in Alzheimer's disease with depression (6) Dementia in Alzheimer's disease with delusions (7) Dementia of the Alzheimer's type with early onset with behavioral disturbance (8) Major neurocognitive disorder GEOVANI VIEIRA MD Apr 11, 2020 21:59
--- NOTE | 2020-04-11 23:08 | NUR ---
Nursing Note Pt wandering in the hallway, bumps into chairs and rails, doesn't seem to have direct vision in front of him. Takes po meds crushed in pudding, pleasant and cooperative. NO behaviors noted at this time.
[2020-04-12 06:28] VITALS: BP 110/47
[2020-04-12] MEDS: ASPIRIN CHEWABLE 81 MG TABLET. PO SCH (08:15)
[2020-04-12] MEDS: SERTRALINE 50 MG TABLET. PO SCH (08:16)
[2020-04-12] MEDS: LISINOPRIL 2.5 MG TABLET PO SCH (08:16)
[2020-04-12] MEDS: AMIODARONE HCL 200 MG TABLET. PO SCH (08:16)
[2020-04-12] MEDS: GABAPENTIN 300 MG CAPSULE. PO SCH ×3 (08:16→20:56)
[2020-04-12] MEDS: MEMANTINE 10 MG TABLET. PO SCH ×2 (08:16→20:57)
[2020-04-12] MEDS: CYANOCOBALAMIN (VITAMIN B-12) 1,000 MCG TABLET. PO SCH (08:16)
[2020-04-12] MEDS: METOPROLOL SUCC 24HR ER 25 MG TAB.ER.24H. PO SCH (08:17)
--- NOTE | 2020-04-12 09:22 | NUR ---
Patient compliant with assessment and medication. Patient currently lying in bed.
[2020-04-12] MEDS: QUEtiapine 25 MG TABLET. PO SCH ×2 (11:58→17:00)
[2020-04-12 15:41] VITALS: BP 145/92
--- NOTE | 2020-04-12 17:45 | NUR ---
Pt has been wandering in halls. Has been pleasantly confused. Compliant with meds and cares.
[2020-04-12] MEDS: MIRTAZAPINE 7.5 MG TABLET. PO SCH (20:56)
[2020-04-12] MEDS: ATORVASTATIN CALCIUM 20 MG TABLET PO SCH (20:57)
[2020-04-12] MEDS: traZODone 50 MG TABLET. PO SCH (20:57)
[2020-04-12] MEDS: LACTOBACILLUS RHAMNOSUS GG 1 CAPSULE. PO SCH (20:58)
--- NOTE | 2020-04-12 22:07 | PDOC ---
Exam Note: Hiren Note: Please also refer to the separate dictated note~for this date of service dictated separately.~Patient seen individually. Discussed the patient with Nursing staff reviewed the chart.~Reviewed interim history and current functioning. Reviewed vital signs,~Labs/ Radiology~and current medications noted below. Continue current treatment with the changes noted in the dictated addendum note Assessment: Vital Signs/I&O: Vital Signs Date Time Temp Pulse Resp B/P (MAP) Pulse Ox O2 Delivery O2 Flow Rate FiO2 04/12/20 15:41 97.7 58 17 145/92 (109) 97 04/11/20 15:58 Room Air I & O 04/11/20 04/11/20 04/12/20 14:59 22:59 06:59 Intake Total 590 ml 480 ml Balance 590 ml 480 ml Current Medications: Meds: Current Medications Medications (Trade) Dose Ordered Sig/Nelly Route PRN Reason Start Time Stop Time Status Last Admin Dose Admin Lactobacillus Rhamnosus (Culturelle) 1 cap BID PO 04/12/20 21:00 04/12/20 20:58 I have reviewed the current psychotropics carefully including drug interactions. Risk benefit ratio favors no change other than as noted in my dictated progress note. Diagnosis: Problems: (1) Impulse control disorder, unspecified (2) Anxiety disorder, unspecified (3) Dementia, vascular, with depression (4) Dementia, vascular, with delusions (5) Dementia in Alzheimer's disease with depression (6) Dementia in Alzheimer's disease with delusions (7) Dementia of the Alzheimer's type with early onset with behavioral disturbance (8) Major neurocognitive disorder GEOVANI VIEIRA MD Apr 12, 2020 22:07
--- NOTE | 2020-04-12 23:59 | NUR ---
Patient is located in his room on assumption of care, awake and in bed. He is disorganized, pleasantly confused. Compliant with assessments and medications crushed in pudding. No agitation. No delusions or hallucinations. Does not appear to be in any pain or discomfort. Patient appears to be sleeping comfortably at present time. Will continue to monitor.
[2020-04-13 06:00] VITALS: BP 128/78
--- NOTE | 2020-04-13 07:34 | PDOC ---
Exam Note: Hiren Note: This note is a late entry for 04/11/2020 covers elements not covered in my initial note. Subjective: The patient was seen face to face in the morning of 04/11/2020 for treatment team meeting with Mehreen Beyer and Shyla (social science manager), Yamini, Activity Therapy and Ariel RN. Discussed with nursing staff, reviewed the chart. The patients appetite is 80%. He slept 8-1/2 hours previous night. He walks with his eyes closed. Vision is poor. Review of Systems: Ambulation impaired. No CV, , pulmonary, ENT system symptoms on review. Poor vision. Mental Status Exam: Oriented to himself. Insight and judgment, recent and remote memory, attention and concentration, fund of knowledge is poor consistent with his diagnoses. Laboratory Data: Reviewed. Impression: Major neurocognitive disorder Alzheimers vascular with delusion, depression, behavioral disturbance. Anxiety disorder unspecified. Impulse control disorder unspecified. Plan: No change from initial note. Assessment: Vital Signs/I&O: Vital Signs Date Time Temp Pulse Resp B/P (MAP) Pulse Ox O2 Delivery O2 Flow Rate FiO2 04/13/20 06:00 97.6 54 16 128/78 (95) 97 Room Air I & O 04/12/20 04/12/20 04/13/20 15:00 23:00 07:00 Intake Total 650 ml 240 ml Balance 650 ml 240 ml Current Medications: Meds: Current Medications Medications (Trade) Dose Ordered Sig/Nelly Route PRN Reason Start Time Stop Time Status Last Admin Dose Admin Lactobacillus Rhamnosus (Culturelle) 1 cap BID PO 04/12/20 21:00 04/12/20 20:58 I have reviewed the current psychotropics carefully including drug interactions. Risk benefit ratio favors no change other than as noted in my dictated progress note. Diagnosis: Problems: (1) Impulse control disorder, unspecified (2) Anxiety disorder, unspecified (3) Dementia, vascular, with depression (4) Dementia, vascular, with delusions (5) Dementia in Alzheimer's disease with depression (6) Dementia in Alzheimer's disease with delusions (7) Dementia of the Alzheimer's type with early onset with behavioral disturbance (8) Major neurocognitive disorder GEOVANI VIEIRA MD Apr 13, 2020 07:34
--- NOTE | 2020-04-13 07:45 | PDOC ---
Exam Note: Hiren Note: This note is a late entry for 04/12/2020 covers elements not covered in my initial note. Subjective: The patient was seen face to face in the evening of 04/12/2020 with Nell LINDQUIST. Discussed with nursing staff, reviewed the chart. The patient slept 7-1/2 hours previous night. Overall the patient has been wandering, keeps his eyes closed. No agitation or aggression nevertheless, quite confused. Review of Systems: Ambulation impaired. No CV, , pulmonary, ENT system symptoms on review though vision is poor. Reliability poor. Mental Status Exam: Oriented to himself. Insight and judgment, recent and remote memory, attention and concentration, fund of knowledge is poor consistent with his diagnoses. Laboratory Data: Reviewed. Impression: Major neurocognitive disorder Alzheimers vascular with delusion, depression, behavioral disturbance. Anxiety disorder unspecified. Impulse control disorder unspecified. Plan: Continue current psychotropics. Assessment: Vital Signs/I&O: Vital Signs Date Time Temp Pulse Resp B/P (MAP) Pulse Ox O2 Delivery O2 Flow Rate FiO2 04/13/20 06:00 97.6 54 16 128/78 (95) 97 Room Air I & O 04/12/20 04/12/20 04/13/20 14:59 22:59 06:59 Intake Total 650 ml 240 ml Balance 650 ml 240 ml Current Medications: Meds: Current Medications Medications (Trade) Dose Ordered Sig/Nelly Route PRN Reason Start Time Stop Time Status Last Admin Dose Admin Lactobacillus Rhamnosus (Culturelle) 1 cap BID PO 04/12/20 21:00 04/12/20 20:58 I have reviewed the current psychotropics carefully including drug interactions. Risk benefit ratio favors no change other than as noted in my dictated progress note. Diagnosis: Problems: (1) Impulse control disorder, unspecified (2) Anxiety disorder, unspecified (3) Dementia, vascular, with depression (4) Dementia, vascular, with delusions (5) Dementia in Alzheimer's disease with depression (6) Dementia in Alzheimer's disease with delusions (7) Dementia of the Alzheimer's type with early onset with behavioral disturbance (8) Major neurocognitive disorder GEOVANI VIEIRA MD Apr 13, 2020 07:45
[2020-04-13] MEDS: LISINOPRIL 2.5 MG TABLET PO SCH (08:01)
[2020-04-13] MEDS: METOPROLOL SUCC 24HR ER 25 MG TAB.ER.24H. PO SCH (08:02)
[2020-04-13] MEDS: LACTOBACILLUS RHAMNOSUS GG 1 CAPSULE. PO SCH ×2 (08:02→20:20)
[2020-04-13] MEDS: MEMANTINE 10 MG TABLET. PO SCH ×2 (08:02→20:21)
[2020-04-13] MEDS: GABAPENTIN 300 MG CAPSULE. PO SCH ×3 (08:02→20:22)
[2020-04-13] MEDS: SERTRALINE 50 MG TABLET. PO SCH (08:02)
[2020-04-13] MEDS: ASPIRIN CHEWABLE 81 MG TABLET. PO SCH (08:03)
[2020-04-13] MEDS: AMIODARONE HCL 200 MG TABLET. PO SCH (08:03)
[2020-04-13] MEDS: CYANOCOBALAMIN (VITAMIN B-12) 1,000 MCG TABLET. PO SCH (08:03)
[2020-04-13] MEDS: CHOLECALCIFEROL (VITAMIN D3) 50,000 UNIT CAPSULE PO SCH (08:05)
[2020-04-13] MEDS: QUEtiapine 25 MG TABLET. PO SCH ×2 (14:00→17:00)
--- NOTE | 2020-04-13 15:00 | NUR ---
Resumed care of pt. Addendum: 04/13/20 at 1834 by SHAKIR AYALA RN Wrong pt.
[2020-04-13 15:49] VITALS: BP 113/62
--- NOTE | 2020-04-13 18:54 | NUR ---
Pt up adl in [facility]. Has been jovial with staff. In pleasant spirits. Compliant with meds and cares.
[2020-04-13] MEDS: ATORVASTATIN CALCIUM 20 MG TABLET PO SCH (20:21)
[2020-04-13] MEDS: traZODone 50 MG TABLET. PO SCH (20:22)
[2020-04-13] MEDS: MIRTAZAPINE 7.5 MG TABLET. PO SCH (20:23)
--- NOTE | 2020-04-13 21:43 | PDOC ---
Exam Note: Hiren Note: Please also refer to the separate dictated note~for this date of service dictated separately.~Patient seen individually. Discussed the patient with Nursing staff reviewed the chart.~Reviewed interim history and current functioning. Reviewed vital signs,~Labs/ Radiology~and current medications noted below. Continue current treatment with the changes noted in the dictated addendum note Assessment: Vital Signs/I&O: Vital Signs Date Time Temp Pulse Resp B/P (MAP) Pulse Ox O2 Delivery O2 Flow Rate FiO2 04/13/20 15:49 97.2 58 20 113/62 (79) 98 04/13/20 06:00 Room Air I & O 04/12/20 04/12/20 04/13/20 15:00 23:00 07:00 Intake Total 650 ml 240 ml Balance 650 ml 240 ml Current Medications: I have reviewed the current psychotropics carefully including drug interactions. Risk benefit ratio favors no change other than as noted in my dictated progress note. Diagnosis: Problems: (1) Impulse control disorder, unspecified (2) Anxiety disorder, unspecified (3) Dementia, vascular, with depression (4) Dementia, vascular, with delusions (5) Dementia in Alzheimer's disease with depression (6) Dementia in Alzheimer's disease with delusions (7) Dementia of the Alzheimer's type with early onset with behavioral disturbance (8) Major neurocognitive disorder GEOVANI VIEIRA MD Apr 13, 2020 21:43
--- NOTE | 2020-04-13 23:59 | NUR ---
Patient is ambulating around the unit on assumption of care. He is disorganized, pleasantly confused. Needs to be reminded to keep his mask on when out of room. Compliant with assessments and medications crushed in pudding. No agitation. No delusions or hallucinations. Does not appear to be in any pain or discomfort. Patient appears to be sleeping comfortably at present time. Will continue to monitor.
[2020-04-14 06:17] VITALS: BP 128/78
[2020-04-14] MEDS: ASPIRIN CHEWABLE 81 MG TABLET. PO SCH (09:05)
[2020-04-14] MEDS: AMIODARONE HCL 200 MG TABLET. PO SCH (09:05)
[2020-04-14] MEDS: MEMANTINE 10 MG TABLET. PO SCH ×2 (09:05→20:29)
[2020-04-14] MEDS: GABAPENTIN 300 MG CAPSULE. PO SCH ×3 (09:05→20:30)
[2020-04-14] MEDS: LACTOBACILLUS RHAMNOSUS GG 1 CAPSULE. PO SCH ×2 (09:05→20:30)
[2020-04-14] MEDS: LISINOPRIL 2.5 MG TABLET PO SCH (09:06)
[2020-04-14] MEDS: METOPROLOL SUCC 24HR ER 25 MG TAB.ER.24H. PO SCH (09:06)
[2020-04-14] MEDS: SERTRALINE 50 MG TABLET. PO SCH (09:06)
[2020-04-14] MEDS: CYANOCOBALAMIN (VITAMIN B-12) 1,000 MCG TABLET. PO SCH (09:06)
--- NOTE | 2020-04-14 09:48 | NUR ---
Patient compliant with assessment and medication. Patient is in a joyous mood joking with staff.
[2020-04-14] MEDS: QUEtiapine 25 MG TABLET. PO SCH ×2 (12:24→17:45)
[2020-04-14 15:57] VITALS: BP 118/65
[2020-04-14] MEDS: ATORVASTATIN CALCIUM 20 MG TABLET PO SCH (20:30)
[2020-04-14] MEDS: traZODone 50 MG TABLET. PO SCH (20:30)
[2020-04-14] MEDS: MIRTAZAPINE 7.5 MG TABLET. PO SCH (20:30)
--- NOTE | 2020-04-14 22:10 | PDOC ---
Exam Note: Hiren Note: Please also refer to the separate dictated note~for this date of service dictated separately.~Patient seen individually. Discussed the patient with Nursing staff reviewed the chart.~Reviewed interim history and current functioning. Reviewed vital signs,~Labs/ Radiology~and current medications noted below. Continue current treatment with the changes noted in the dictated addendum note Assessment: Vital Signs/I&O: Vital Signs Date Time Temp Pulse Resp B/P (MAP) Pulse Ox O2 Delivery O2 Flow Rate FiO2 04/14/20 15:57 97.8 76 19 118/65 (82) 98 04/13/20 06:00 Room Air I & O 04/13/20 04/13/20 04/14/20 15:00 23:00 07:00 Intake Total 600 ml 480 ml Balance 600 ml 480 ml Current Medications: I have reviewed the current psychotropics carefully including drug interactions. Risk benefit ratio favors no change other than as noted in my dictated progress note. Diagnosis: Problems: (1) Impulse control disorder, unspecified (2) Anxiety disorder, unspecified (3) Dementia, vascular, with depression (4) Dementia, vascular, with delusions (5) Dementia in Alzheimer's disease with depression (6) Dementia in Alzheimer's disease with delusions (7) Dementia of the Alzheimer's type with early onset with behavioral disturbance (8) Major neurocognitive disorder GEOVANI VIEIRA MD Apr 14, 2020 22:10
--- NOTE | 2020-04-14 23:59 | NUR ---
Patient is ambulating around the unit on assumption of care. He is disorganized, pleasantly confused. Needs to be reminded to keep his mask on when out of room. This RN assisted him to the day room so he could enjoy the movie. Compliant with assessments and medications crushed in pudding. No agitation. No delusions or hallucinations. Does not appear to be in any pain or discomfort. Patient appears to be sleeping comfortably at present time. Will continue to monitor.
[2020-04-15 06:00] VITALS: BP 150/78
--- NOTE | 2020-04-15 06:44 | PDOC ---
Exam Note: Hiren Note: This note is a late entry for 04/13/2020 covers elements not covered in my initial note. Subjective: The patient was seen face to face in the evening of 04/13/2020 with Nell LINDQUIST. Discussed with nursing staff, reviewed the chart. The patient slept 7 hours previous night. He has had no sexually inappropriate behaviours. He makes some vague comments to female nursing staff that he loves them but certainly has not been aggressive about this. He often walks with his eyes closed. Review of Systems: Ambulation impaired. No CV, , pulmonary, ENT system symptoms on review though vision is poor. Mental Status Exam: Oriented to himself. Insight and judgment, recent and remote memory, attention and concentration, fund of knowledge is poor consistent with his diagnoses. Laboratory Data: Reviewed. Impression: Major neurocognitive disorder Alzheimers vascular with delusion, depression, behavioral disturbance. Anxiety disorder unspecified. Impulse control disorder unspecified. Plan: Continue current psychotropics. Assessment: Vital Signs/I&O: Vital Signs Date Time Temp Pulse Resp B/P (MAP) Pulse Ox O2 Delivery O2 Flow Rate FiO2 04/15/20 06:00 98.0 58 18 150/78 (102) 98 Room Air I & O 04/14/20 04/14/20 04/15/20 14:59 22:59 06:59 Intake Total 120 ml 480 ml Balance 120 ml 480 ml Current Medications: I have reviewed the current psychotropics carefully including drug interactions. Risk benefit ratio favors no change other than as noted in my dictated progress note. Diagnosis: Problems: (1) Impulse control disorder, unspecified (2) Anxiety disorder, unspecified (3) Dementia, vascular, with depression (4) Dementia, vascular, with delusions (5) Dementia in Alzheimer's disease with depression (6) Dementia in Alzheimer's disease with delusions (7) Dementia of the Alzheimer's type with early onset with behavioral disturbance (8) Major neurocognitive disorder GEOVANI VIEIRA MD Apr 15, 2020 06:44
[2020-04-15] MEDS: SERTRALINE 50 MG TABLET. PO SCH (09:05)
[2020-04-15] MEDS: MEMANTINE 10 MG TABLET. PO SCH ×2 (09:05→20:08)
[2020-04-15] MEDS: GABAPENTIN 300 MG CAPSULE. PO SCH ×3 (09:05→20:03)
[2020-04-15] MEDS: ASPIRIN CHEWABLE 81 MG TABLET. PO SCH (09:05)
[2020-04-15] MEDS: CYANOCOBALAMIN (VITAMIN B-12) 1,000 MCG TABLET. PO SCH (09:05)
[2020-04-15] MEDS: LACTOBACILLUS RHAMNOSUS GG 1 CAPSULE. PO SCH ×2 (09:05→20:06)
[2020-04-15] MEDS: LISINOPRIL 2.5 MG TABLET PO SCH (09:05)
[2020-04-15] MEDS: METOPROLOL SUCC 24HR ER 25 MG TAB.ER.24H. PO SCH (09:06)
[2020-04-15] MEDS: AMIODARONE HCL 200 MG TABLET. PO SCH (09:06)
[2020-04-15] MEDS: PENICILLIN G BENZATHINE LA 1,200,000 UNIT/2 ML DISP.SYRIN. IM SCH (09:35)
[2020-04-15] MEDS: QUEtiapine 25 MG TABLET. PO SCH ×2 (11:52→16:18)
--- NOTE | 2020-04-15 13:59 | NUR ---
PATIENT WAS AWAKE AND UP IN A CHAIR UPON ASSESSMENT AND MED ADMINISTRATION. PT IS A/O X1, CONFUSED BUT COOPERATIVE AND COMPLIANT WITH MEDS. PATIENT STATED HE FEELS HAPPY THIS MORNING. PATIENT IS EASY TO REDIRECT AND GUIDE DURING ADLS AND AMBULATION. PATIENT PARTICIPATED IN A GROUP THERAPY LATER THIS AFTERNOON. WILL CONTINUE TO MONITOR.
[2020-04-15 16:07] VITALS: BP 110/69
[2020-04-15] MEDS: ATORVASTATIN CALCIUM 20 MG TABLET PO SCH (20:03)
[2020-04-15] MEDS: traZODone 50 MG TABLET. PO SCH (20:03)
[2020-04-15] MEDS: MIRTAZAPINE 7.5 MG TABLET. PO SCH (20:03)
--- NOTE | 2020-04-15 22:11 | PDOC ---
Exam Note: Hiren Note: Please also refer to the separate dictated note~for this date of service dictated separately.~Patient seen individually. Discussed the patient with Nursing staff reviewed the chart.~Reviewed interim history and current functioning. Reviewed vital signs,~Labs/ Radiology~and current medications noted below. Continue current treatment with the changes noted in the dictated addendum note Assessment: Vital Signs/I&O: Vital Signs Date Time Temp Pulse Resp B/P (MAP) Pulse Ox O2 Delivery O2 Flow Rate FiO2 04/15/20 16:07 98.1 68 17 110/69 (83) 97 04/15/20 06:00 Room Air I & O 04/14/20 04/14/20 04/15/20 15:00 23:00 07:00 Intake Total 120 ml 480 ml Balance 120 ml 480 ml Current Medications: I have reviewed the current psychotropics carefully including drug interactions. Risk benefit ratio favors no change other than as noted in my dictated progress note. Diagnosis: Problems: (1) Impulse control disorder, unspecified (2) Anxiety disorder, unspecified (3) Dementia, vascular, with depression (4) Dementia, vascular, with delusions (5) Dementia in Alzheimer's disease with depression (6) Dementia in Alzheimer's disease with delusions (7) Dementia of the Alzheimer's type with early onset with behavioral disturbance (8) Major neurocognitive disorder GEOVANI VIEIRA MD Apr 15, 2020 22:11
--- NOTE | 2020-04-15 22:54 | NUR ---
Nursing Note Pt in room during assessment, smiles on approach, no behaviors noted. Takes meds with pudding, compliant.
[2020-04-16 06:10] VITALS: BP 93/59
--- NOTE | 2020-04-16 06:46 | PDOC ---
Exam Note: Hiren Note: This note is a late entry for 04/14/2020 covers elements not covered in my initial note. Subjective: The patient was seen face to face in the evening of 04/14/2020 with Segun LINDQUIST. Discussed with nursing staff, reviewed the chart. The patient slept 7-1/2 hours previous night. Overall the patient is doing better. Vision is poor. He is confused, wanders the hallways, redirects. He has been interacting with another demented patient who is quite confused. Review of Systems: Ambulation impaired. No CV, , pulmonary, ENT system symptoms on review though vision is poor. Mental Status Exam: Oriented to himself. Insight and judgment, recent and remote memory, attention and concentration, fund of knowledge is poor consistent with his diagnoses. Laboratory Data: Reviewed. Impression: Major neurocognitive disorder Alzheimers vascular with delusion, depression, behavioral disturbance. Anxiety disorder unspecified. Impulse control disorder unspecified. Plan: Continue current psychotropics. Assessment: Vital Signs/I&O: Vital Signs Date Time Temp Pulse Resp B/P (MAP) Pulse Ox O2 Delivery O2 Flow Rate FiO2 04/16/20 06:10 97.3 52 16 93/59 (70) 99 04/15/20 06:00 Room Air I & O 04/15/20 04/15/20 04/16/20 15:00 23:00 07:00 Intake Total 720 ml 120 ml Balance 720 ml 120 ml Current Medications: I have reviewed the current psychotropics carefully including drug interactions. Risk benefit ratio favors no change other than as noted in my dictated progress note. Diagnosis: Problems: (1) Impulse control disorder, unspecified (2) Anxiety disorder, unspecified (3) Dementia, vascular, with depression (4) Dementia, vascular, with delusions (5) Dementia in Alzheimer's disease with depression (6) Dementia in Alzheimer's disease with delusions (7) Dementia of the Alzheimer's type with early onset with behavioral disturbance (8) Major neurocognitive disorder GEOVANI VIEIRA MD Apr 16, 2020 06:46
[2020-04-16 06:54] LABS: BASO % 1 % (0-3); EOS # 0.1 x10^3/uL (0.0-0.7); EOS % 3 % (0-3); HEMATOCRIT 34.4 % (39.0-53.0); HEMOGLOBIN 10.9 g/dL (13.0-17.5); LYMPH % 19 % (24-48); MEAN CORPUSCULAR HEMOGLOBIN 29 pg (25-35); MEAN CORPUSCULAR HGB CONC 32 g/dL (31-37); MEAN CORPUSCULAR VOLUME 92 fL (79-100); MONO # 0.4 x10^3/uL (0.0-1.1); MONO % 7 % (0-9); NEUT # 3.9 x10^3uL (1.8-7.7); NEUT % 71 % (31-73); PLATELET COUNT 136 x10^3/uL (140-400); RED BLOOD COUNT 3.75 x10^6/uL (4.30-5.70); WHITE BLOOD COUNT 5.5 x10^3/uL (4.0-11.0)
[2020-04-16 07:06] LABS: ALBUMIN 2.9 g/dL (3.4-5.0); CALCIUM 8.1 mg/dL (8.5-10.1); CREATININE 1.4 mg/dL (0.7-1.3); GFR 49.3; POTASSIUM 4.1 mmol/L (3.5-5.1); TOTAL BILIRUBIN 0.3 mg/dL (0.2-1.0); TOTAL PROTEIN 5.7 g/dL (6.4-8.2)
--- NOTE | 2020-04-16 07:16 | PDOC ---
Exam Note: Hiren Note: This note is a late entry for 04/15/2020 covers elements not covered in my initial note. Subjective: The patient was seen face to face in the evening of 04/15/2020 with Aleksandra LINDQUIST. Discussed with nursing staff, reviewed the chart. The patient slept 7-3/4 hours previous night. Overall plan was for the patient to discharge to [facility] tomorrow but apparently his nursing facility he was supposed to go to has had COVID outbreak and they are not able to accept him back tomorrow. We will defer to social service staff to address this. Review of Systems: Ambulation impaired. No CV, , pulmonary, ENT system symptoms on review. Poor vision. The patient walks around the highway with eye s closed. Mental Status Exam: Oriented to himself. Insight and judgment, recent and remote memory, attention and concentration, fund of knowledge is poor consistent with his diagnoses. Laboratory Data: Reviewed. Impression: Major neurocognitive disorder Alzheimers vascular with delusion, depression, behavioral disturbance. Anxiety disorder unspecified. Impulse control disorder unspecified. Plan: Continue current psychotropics. Assessment: Vital Signs/I&O: Vital Signs Date Time Temp Pulse Resp B/P (MAP) Pulse Ox O2 Delivery O2 Flow Rate FiO2 04/16/20 06:10 97.3 52 16 93/59 (70) 99 04/15/20 06:00 Room Air I & O 04/15/20 04/15/20 04/16/20 15:00 23:00 07:00 Intake Total 720 ml 120 ml Balance 720 ml 120 ml Labs: Laboratory Tests Test 04/16/20 06:13 White Blood Count 5.5 x10^3/uL (4.0-11.0) Red Blood Count 3.75 x10^6/uL (4.30-5.70) L Hemoglobin 10.9 g/dL (13.0-17.5) L Hematocrit 34.4 % (39.0-53.0) L Mean Corpuscular Volume 92 fL (79-100) Mean Corpuscular Hemoglobin 29 pg (25-35) Mean Corpuscular Hemoglobin Concent 32 g/dL (31-37) Red Cell Distribution Width 15.0 % (11.5-14.5) H Platelet Count 136 x10^3/uL (140-400) L Neutrophils (%) (Auto) 71 % (31-73) Lymphocytes (%) (Auto) 19 % (24-48) L Monocytes (%) (Auto) 7 % (0-9) Eosinophils (%) (Auto) 3 % (0-3) Basophils (%) (Auto) 1 % (0-3) Neutrophils # (Auto) 3.9 x10^3uL (1.8-7.7) Lymphocytes # (Auto) 1.0 x10^3/uL (1.0-4.8) Monocytes # (Auto) 0.4 x10^3/uL (0.0-1.1) Eosinophils # (Auto) 0.1 x10^3/uL (0.0-0.7) Basophils # (Auto) 0.0 x10^3/uL (0.0-0.2) Sodium Level 143 mmol/L (136-145) Potassium Level 4.1 mmol/L (3.5-5.1) Chloride Level 109 mmol/L (98-107) H Carbon Dioxide Level 30 mmol/L (21-32) Anion Gap 4 (6-14) L Blood Urea Nitrogen 33 mg/dL (8-26) H Creatinine 1.4 mg/dL (0.7-1.3) H Estimated GFR (Cockcroft-Gault) 49.3 BUN/Creatinine Ratio 24 (6-20) H Glucose Level 97 mg/dL (70-99) Calcium Level 8.1 mg/dL (8.5-10.1) L Total Bilirubin 0.3 mg/dL (0.2-1.0) Aspartate Amino Transferase (AST) 12 U/L (15-37) L Alanine Aminotransferase (ALT) 20 U/L (16-63) Alkaline Phosphatase 62 U/L (46-116) Total Protein 5.7 g/dL (6.4-8.2) L Albumin 2.9 g/dL (3.4-5.0) L Albumin/Globulin Ratio 1.0 (1.0-1.7) Current Medications: I have reviewed the current psychotropics carefully including drug interactions. Risk benefit ratio favors no change other than as noted in my dictated progress note. Diagnosis: Problems: (1) Impulse control disorder, unspecified (2) Anxiety disorder, unspecified (3) Dementia, vascular, with depression (4) Dementia, vascular, with delusions (5) Dementia in Alzheimer's disease with depression (6) Dementia in Alzheimer's disease with delusions (7) Dementia of the Alzheimer's type with early onset with behavioral disturbance (8) Major neurocognitive disorder GEOVANI VIEIRA MD Apr 16, 2020 07:16
[2020-04-16] MEDS: ASPIRIN CHEWABLE 81 MG TABLET. PO SCH (09:27)
[2020-04-16] MEDS: SERTRALINE 50 MG TABLET. PO SCH (09:28)
[2020-04-16] MEDS: AMIODARONE HCL 200 MG TABLET. PO SCH (09:28)
[2020-04-16] MEDS: CYANOCOBALAMIN (VITAMIN B-12) 1,000 MCG TABLET. PO SCH (09:28)
[2020-04-16] MEDS: MEMANTINE 10 MG TABLET. PO SCH ×2 (09:28→19:34)
[2020-04-16] MEDS: LACTOBACILLUS RHAMNOSUS GG 1 CAPSULE. PO SCH ×2 (09:28→19:34)
[2020-04-16] MEDS: LISINOPRIL 2.5 MG TABLET PO SCH (09:29)
[2020-04-16] MEDS: GABAPENTIN 300 MG CAPSULE. PO SCH ×3 (09:29→19:34)
[2020-04-16] MEDS: METOPROLOL SUCC 24HR ER 25 MG TAB.ER.24H. PO SCH (09:30)
--- NOTE | 2020-04-16 12:20 | NUR ---
JAZLYN returned call to Kimberly at [facility] to update her on pt and to see if they have figured out placement for pt as the [facility] he is on has Covid positive residents. JAZLYN will follow up with the team and also contact pt dtr to discuss this matter.
[2020-04-16] MEDS: QUEtiapine 25 MG TABLET. PO SCH ×2 (13:04→17:16)
--- NOTE | 2020-04-16 15:39 | NUR ---
Nursing note: Pt has been disorganized and walking around the unit for most of the day. He is compliant with meds crushed in pudding. Earlier this afternoon, pt became more agitated, exit seeking, and was resistive with redirection. PRN was given and he took a short nap in his room. He is currently sitting in the hallway. Will continue to monitor.
[2020-04-16 16:12] VITALS: BP 115/68
[2020-04-16] MEDS: traZODone 50 MG TABLET. PO SCH (19:34)
[2020-04-16] MEDS: MIRTAZAPINE 7.5 MG TABLET. PO SCH (19:34)
[2020-04-16] MEDS: ATORVASTATIN CALCIUM 20 MG TABLET PO SCH (19:35)
--- NOTE | 2020-04-16 21:32 | NUR ---
Nursing Note Pt in hallway, wandering about, takes po pills crushed in 1 bite. Confused, pleasant and cooperative.
--- NOTE | 2020-04-16 22:01 | PDOC ---
Exam Note: Hiren Note: Please also refer to the separate dictated note~for this date of service dictated separately.~Patient seen individually. Discussed the patient with Nursing staff reviewed the chart.~Reviewed interim history and current functioning. Reviewed vital signs,~Labs/ Radiology~and current medications noted below. Continue current treatment with the changes noted in the dictated addendum note Assessment: Vital Signs/I&O: Vital Signs Date Time Temp Pulse Resp B/P (MAP) Pulse Ox O2 Delivery O2 Flow Rate FiO2 04/16/20 16:12 98.2 62 20 115/68 (84) 96 Room Air I & O 04/15/20 04/15/20 04/16/20 15:00 23:00 07:00 Intake Total 720 ml 120 ml Balance 720 ml 120 ml Labs: Laboratory Tests Test 04/16/20 06:13 White Blood Count 5.5 x10^3/uL (4.0-11.0) Red Blood Count 3.75 x10^6/uL (4.30-5.70) L Hemoglobin 10.9 g/dL (13.0-17.5) L Hematocrit 34.4 % (39.0-53.0) L Mean Corpuscular Volume 92 fL (79-100) Mean Corpuscular Hemoglobin 29 pg (25-35) Mean Corpuscular Hemoglobin Concent 32 g/dL (31-37) Red Cell Distribution Width 15.0 % (11.5-14.5) H Platelet Count 136 x10^3/uL (140-400) L Neutrophils (%) (Auto) 71 % (31-73) Lymphocytes (%) (Auto) 19 % (24-48) L Monocytes (%) (Auto) 7 % (0-9) Eosinophils (%) (Auto) 3 % (0-3) Basophils (%) (Auto) 1 % (0-3) Neutrophils # (Auto) 3.9 x10^3uL (1.8-7.7) Lymphocytes # (Auto) 1.0 x10^3/uL (1.0-4.8) Monocytes # (Auto) 0.4 x10^3/uL (0.0-1.1) Eosinophils # (Auto) 0.1 x10^3/uL (0.0-0.7) Basophils # (Auto) 0.0 x10^3/uL (0.0-0.2) Sodium Level 143 mmol/L (136-145) Potassium Level 4.1 mmol/L (3.5-5.1) Chloride Level 109 mmol/L (98-107) H Carbon Dioxide Level 30 mmol/L (21-32) Anion Gap 4 (6-14) L Blood Urea Nitrogen 33 mg/dL (8-26) H Creatinine 1.4 mg/dL (0.7-1.3) H Estimated GFR (Cockcroft-Gault) 49.3 BUN/Creatinine Ratio 24 (6-20) H Glucose Level 97 mg/dL (70-99) Calcium Level 8.1 mg/dL (8.5-10.1) L Total Bilirubin 0.3 mg/dL (0.2-1.0) Aspartate Amino Transferase (AST) 12 U/L (15-37) L Alanine Aminotransferase (ALT) 20 U/L (16-63) Alkaline Phosphatase 62 U/L (46-116) Total Protein 5.7 g/dL (6.4-8.2) L Albumin 2.9 g/dL (3.4-5.0) L Albumin/Globulin Ratio 1.0 (1.0-1.7) Current Medications: I have reviewed the current psychotropics carefully including drug interactions. Risk benefit ratio favors no change other than as noted in my dictated progress note. Diagnosis: Problems: (1) Impulse control disorder, unspecified (2) Anxiety disorder, unspecified (3) Dementia, vascular, with depression (4) Dementia, vascular, with delusions (5) Dementia in Alzheimer's disease with depression (6) Dementia in Alzheimer's disease with delusions (7) Dementia of the Alzheimer's type with early onset with behavioral disturbance (8) Major neurocognitive disorder GEOVANI VIEIRA MD Apr 16, 2020 22:01
[2020-04-17 05:34] VITALS: BP 145/77
[2020-04-17] MEDS: ASPIRIN CHEWABLE 81 MG TABLET. PO SCH (09:09)
[2020-04-17] MEDS: METOPROLOL SUCC 24HR ER 25 MG TAB.ER.24H. PO SCH (09:10)
[2020-04-17] MEDS: SERTRALINE 50 MG TABLET. PO SCH (09:11)
[2020-04-17] MEDS: LISINOPRIL 2.5 MG TABLET PO SCH (09:11)
[2020-04-17] MEDS: MEMANTINE 10 MG TABLET. PO SCH ×2 (09:11→20:06)
[2020-04-17] MEDS: GABAPENTIN 300 MG CAPSULE. PO SCH ×3 (09:11→20:06)
[2020-04-17] MEDS: CYANOCOBALAMIN (VITAMIN B-12) 1,000 MCG TABLET. PO SCH (09:12)
[2020-04-17] MEDS: AMIODARONE HCL 200 MG TABLET. PO SCH (09:12)
[2020-04-17] MEDS: LACTOBACILLUS RHAMNOSUS GG 1 CAPSULE. PO SCH ×2 (09:12→20:06)
--- NOTE | 2020-04-17 11:04 | NUR ---
Nursing note: Pt walking in hallway. He is calm, compliant with meds crushed in pudding, and cooperative with assessment. Pt denies pain or discomfort. He is currently walking around the unit. Will continue to monitor.
[2020-04-17] MEDS: QUEtiapine 25 MG TABLET. PO SCH ×2 (12:54→17:11)
[2020-04-17 16:25] VITALS: BP 109/69
[2020-04-17] MEDS: MIRTAZAPINE 7.5 MG TABLET. PO SCH (20:06)
[2020-04-17] MEDS: ATORVASTATIN CALCIUM 20 MG TABLET PO SCH (20:06)
[2020-04-17] MEDS: traZODone 50 MG TABLET. PO SCH (20:07)
--- NOTE | 2020-04-17 21:08 | NUR ---
Nursing Note: Pt wandering in hallway at shift change. Pt calm, pleasantly confused, and disorganized. Pt cooperative and compliant with assessment and medications administered crushed in pudding. No agitation or aggression noted thus far this shift.
--- NOTE | 2020-04-17 22:12 | PDOC ---
Exam Note: Hiren Note: Please also refer to the separate dictated note~for this date of service dictated separately.~Patient seen individually. Discussed the patient with Nursing staff reviewed the chart.~Reviewed interim history and current functioning. Reviewed vital signs,~Labs/ Radiology~and current medications noted below. Continue current treatment with the changes noted in the dictated addendum note Assessment: Vital Signs/I&O: Vital Signs Date Time Temp Pulse Resp B/P (MAP) Pulse Ox O2 Delivery O2 Flow Rate FiO2 04/17/20 16:25 98.4 62 18 109/69 (82) 100 04/16/20 16:12 Room Air I & O 04/16/20 04/16/20 04/17/20 15:00 23:00 07:00 Intake Total 720 ml 480 ml Balance 720 ml 480 ml Current Medications: I have reviewed the current psychotropics carefully including drug interactions. Risk benefit ratio favors no change other than as noted in my dictated progress note. Diagnosis: Problems: (1) Impulse control disorder, unspecified (2) Anxiety disorder, unspecified (3) Dementia, vascular, with depression (4) Dementia, vascular, with delusions (5) Dementia in Alzheimer's disease with depression (6) Dementia in Alzheimer's disease with delusions (7) Dementia of the Alzheimer's type with early onset with behavioral disturbance (8) Major neurocognitive disorder (9) Dementia in Alzheimer's disease with early onset with behavioral disturbance (10) Impulse control disorder GEOVANI VIEIRA MD Apr 17, 2020 22:12
[2020-04-18 05:34] VITALS: BP 96/58
--- NOTE | 2020-04-18 06:25 | PDOC ---
Exam Note: Hiren Note: This note is a late entry for 04/16/2020 covers elements not covered in my initial note. Subjective: The patient was seen face to face in the evening of 04/16/2020 with Ella LINDQUIST. Discussed with nursing staff, reviewed the chart. The patient slept 6-1/4 hours previous night. He did well previous night, wandering off, walking with his eyes closed, confused. He is withdrawn at times. At 2 p.m. he got agitated. Received Zyprexa p.r.n. Review of Systems: Ambulation impaired. No CV, , pulmonary, ENT system symptoms on review. Poor vision. Mental Status Exam: Oriented to himself. The patient is pleasant, smiling, but extremely confused. Insight and judgment, recent and remote memory, attention and concentration, fund of knowledge is poor consistent with his diagnoses. Laboratory Data: Reviewed. Impression: Major neurocognitive disorder Alzheimers vascular with delusion, depression, behavioral disturbance. Anxiety disorder unspecified. Impulse control disorder unspecified. Plan: Continue current psychotropics. Assessment: Vital Signs/I&O: Vital Signs Date Time Temp Pulse Resp B/P (MAP) Pulse Ox O2 Delivery O2 Flow Rate FiO2 04/18/20 05:34 97.4 59 16 96/58 (71) 96 Room Air I & O 04/17/20 04/17/20 04/18/20 14:59 22:59 06:59 Intake Total 660 ml 360 ml Balance 660 ml 360 ml Current Medications: I have reviewed the current psychotropics carefully including drug interactions. Risk benefit ratio favors no change other than as noted in my dictated progress note. Diagnosis: Problems: (1) Impulse control disorder, unspecified (2) Anxiety disorder, unspecified (3) Dementia, vascular, with depression (4) Dementia, vascular, with delusions (5) Dementia in Alzheimer's disease with depression (6) Dementia in Alzheimer's disease with delusions (7) Dementia of the Alzheimer's type with early onset with behavioral disturbance (8) Major neurocognitive disorder GEOVANI VIEIRA MD Apr 18, 2020 06:25
--- NOTE | 2020-04-18 06:53 | PDOC ---
Exam Note: Hiren Note: This note is a late entry for 04/17/2020 covers elements not covered in my initial note. Subjective: The patient was seen face to face in the evening of 04/17/2020 with Ella LINDQUIST. Discussed with nursing staff, reviewed the chart. The patient slept 7 hours previous night. Again he remains confused, wandering but no agitated, aggressive, quite redirectable. Review of Systems: Ambulation impaired. No CV, , pulmonary, ENT system sy mptoms on review. Poor vision. Mental Status Exam: Oriented to himself. He is not verbal, interactive, but pleasant, smiling. Insight and judgment, recent and remote memory, attention and concentration, fund of knowledge is poor consistent with his diagnoses. Laboratory Data: Reviewed. Impression: Major neurocognitive disorder Alzheimers vascular with delusion, depression, behavioral disturbance. Anxiety disorder unspecified. Impulse control disorder unspecified. Plan: Continue current psychotropics. Assessment: Vital Signs/I&O: Vital Signs Date Time Temp Pulse Resp B/P (MAP) Pulse Ox O2 Delivery O2 Flow Rate FiO2 04/18/20 05:34 97.4 59 16 96/58 (71) 96 Room Air I & O 04/17/20 04/17/20 04/18/20 15:00 23:00 07:00 Intake Total 660 ml 360 ml Balance 660 ml 360 ml Current Medications: I have reviewed the current psychotropics carefully including drug interactions. Risk benefit ratio favors no change other than as noted in my dictated progress note. Diagnosis: Problems: (1) Impulse control disorder, unspecified (2) Anxiety disorder, unspecified (3) Dementia, vascular, with depression (4) Dementia, vascular, with delusions (5) Dementia in Alzheimer's disease with depression (6) Dementia in Alzheimer's disease with delusions (7) Dementia of the Alzheimer's type with early onset with behavioral disturbance (8) Major neurocognitive disorder GEOVANI VIEIRA MD Apr 18, 2020 06:53
[2020-04-18] MEDS: CYANOCOBALAMIN (VITAMIN B-12) 1,000 MCG TABLET. PO SCH (08:16)
[2020-04-18] MEDS: ASPIRIN CHEWABLE 81 MG TABLET. PO SCH (08:16)
[2020-04-18] MEDS: LACTOBACILLUS RHAMNOSUS GG 1 CAPSULE. PO SCH ×2 (08:16→20:05)
[2020-04-18] MEDS: GABAPENTIN 300 MG CAPSULE. PO SCH ×3 (08:16→20:05)
[2020-04-18] MEDS: SERTRALINE 50 MG TABLET. PO SCH (08:17)
[2020-04-18] MEDS: AMIODARONE HCL 200 MG TABLET. PO SCH (08:17)
[2020-04-18] MEDS: METOPROLOL SUCC 24HR ER 25 MG TAB.ER.24H. PO SCH (08:18)
[2020-04-18] MEDS: LISINOPRIL 2.5 MG TABLET PO SCH (08:18)
[2020-04-18] MEDS: MEMANTINE 10 MG TABLET. PO SCH ×2 (09:00→20:05)
--- NOTE | 2020-04-18 09:59 | TX PLAN ---
Interdisciplinary Tx Plan Admission Information Apr 02, 2020 at 13:33 Legal Status (on Admission): Voluntary DPOA/Guardian Name: Mira Richard Contact Other Contact Name: [facility] Other Contact Verified Code Status: DNR Allergies: Coded Allergies: Penicillins (Verified Allergy, Intermediate, 03/28/20) donepezil (Verified Allergy, Intermediate, 03/28/20) galantamine (Verified Allergy, Intermediate, 03/28/20) Diagnoses Primary Diagnosis: Major neurocognitive disorder, Vascular Reasons for Admission: Aggressive, Combative, Poor impulse control Problem in Patient's Words: He always wants to leave. Always tells them he is devising a plan to "break out of this place". Additional Admission Comments: According to the intake, pt is aggressive, put his hands on staff's neck, tried to bite, punching licona and flipped tables when redirected for trying to leave. Problems Active Problems: Wandering Restless Agitation Inactive Problems: Medication compliant Pt Strengths/Limitations Ability for [place]: Poor Cognitive Functioning/Ability: Fair Communication Skills/Ability: Fair Financial Resources: Fair Insight/Judgement: Poor Intellectual Ability: Fair Physical Health: Fair Social Skills: Poor Stability in Family: Good Stability in School/Work: Poor Verbal Skills: Fair Discharge Criteria Discharge Criteria: Adequate arrangements @DC, Improved behavior, Improved mood/thought Preliminary Discharge Plan Preliminary DC Plan: Current Living Arrange. Special Precautions Fall Risk: Low Initial D/C Plan Pt will return to [facility] once stable Identified Discharge Needs: Follow up with psychiatrist Currently Utilized Resources Currently Utilized Resources/P: Primary Care Physician [place] Services Identified Problems/Hx/Goals Objectives/Short-Term Goals Short Term Goals: Dec. Aggression, Dec. Outbursts, Medication Stabilization, Monitor Med Effects Short Term Goals in Patient's: I want to get out of here Interventions/Frequency Staff Interventions/Frequency&: Psychiatrist to assess pt at least 3x per week for medication management. Social work to assess pt at least 2x per week to assess discharge needs, planning goals and barriers. Nursing to assess pt behaviors, medication effects and complete 15 minute checks. Encourage participation in group activities (if applicable) or 1:1 engagement as deemed by the activities assessment. History Vocational History: Pt worked for the [employer] for over 20 years. Pt ended up having a back injury and had to retire early. Education: Pt graduated HS (12th grade) Community Follow[facility] Treatment Plan Explained Patient/Jigsawyer had this treatment plan explained to him/her as indicated by the signature below and has been given the opportunity to ask questions and make suggestions: Date: Patient/Jigsawyer Signature: Status Update Update Pt is eating 100% of meals and sleeping on average 7 sleep; Dangelo continues to wander the hallway and needs assist sometimes before running into things. Pt did attend groups but has very minimal participation. In one group pt was very active and singing along with Ambrose Brandon, which staff has never seen before. At this time, the facility that pt lives had a Covid outbreak on his unit and the facility is trying to see what they can do to move pt away from that hallway until it can be cleared. JAZLYN will continue to work with the family and facility on getting pt discharge plans finalized. DEENA MARIA Apr 18, 2020 09:59
[2020-04-18] MEDS: QUEtiapine 25 MG TABLET. PO SCH ×2 (12:59→17:12)
--- NOTE | 2020-04-18 13:09 | NUR ---
WEEKLY ACTIVITY THERAPY NOTE Date of Admission: 04/02 Date of AT Assessment: 04/05 Precipitating behaviors that initiated intake and admission: Patient was reported to be combative towards staff at facility, flipping tables, and increasingly aggressive. Goal aimed: increase time management and stimulation skills Initial Goal: Pt will participate in at least one individual or group Activity Therapy session before discharge. Repeat goal 04/11 Weekly progress towards goal: achieved, 06/21 Group participation level: 1 full Weekly highlights: singing and dancing to [employer] on 04/11 Behaviors observed: similar to last week, wandering hallways, usually pleasant, responds well to voices Plan: change goal to: Pt. will participate in at least three individual or group Activity Therapy session before discharge. Beneficial adaptations: enjoys [employer] music
--- NOTE | 2020-04-18 13:33 | NUR ---
PATIENT IS AWAKE THIS AM UP IN A CHAIR , CALM AND APPEARED TO BE IN A GOOD SPIRIT, PATIENT IS A/O X1 PLEASANTLY CONFUSED. PATIENT IS COMPLIANT WITH MEDICATIONS TAKES IT CRUSHED IN PUDDING. PATIENT ENJOYED LISTENING TO THE MUSIC THIS AM AND IN THE AFTERNOON, SINGING THE SONGS , KNOWING THE LYRICS, STATED " I LIKE IT".
[2020-04-18 15:57] VITALS: BP 107/72
[2020-04-18 19:52] VITALS: BP 109/66
[2020-04-18] MEDS: traZODone 50 MG TABLET. PO SCH (20:05)
[2020-04-18] MEDS: ATORVASTATIN CALCIUM 20 MG TABLET PO SCH (20:05)
[2020-04-18] MEDS: MIRTAZAPINE 7.5 MG TABLET. PO SCH (20:05)
--- NOTE | 2020-04-18 21:48 | NUR ---
Nursing Note: Pt sitting quietly in the hallway at shift change. Pt calm, pleasantly confused, and interactive. Pt cooperative with assessment and compliant with medications administered crushed in pudding. No agitation or aggression noted thus far this shift.
--- NOTE | 2020-04-18 21:58 | PDOC ---
Exam Note: Hiren Note: Please also refer to the separate dictated note~for this date of service dictated separately.~Patient seen individually. Discussed the patient with Nursing staff reviewed the chart.~Reviewed interim history and current functioning. Reviewed vital signs,~Labs/ Radiology~and current medications noted below. Continue current treatment with the changes noted in the dictated addendum note Assessment: Vital Signs/I&O: Vital Signs Date Time Temp Pulse Resp B/P (MAP) Pulse Ox O2 Delivery O2 Flow Rate FiO2 04/18/20 19:52 97.7 69 18 109/66 (80) 94 Room Air I & O 04/17/20 04/17/20 04/18/20 14:59 22:59 06:59 Intake Total 660 ml 360 ml Balance 660 ml 360 ml Current Medications: I have reviewed the current psychotropics carefully including drug interactions. Risk benefit ratio favors no change other than as noted in my dictated progress note. Diagnosis: Problems: (1) Impulse control disorder, unspecified (2) Anxiety disorder, unspecified (3) Dementia, vascular, with depression (4) Dementia, vascular, with delusions (5) Dementia in Alzheimer's disease with depression (6) Dementia in Alzheimer's disease with delusions (7) Dementia of the Alzheimer's type with early onset with behavioral disturbance (8) Major neurocognitive disorder GEOVANI VIEIRA MD Apr 18, 2020 21:58
[2020-04-19 06:36] VITALS: BP 106/53
[2020-04-19] MEDS: ASPIRIN CHEWABLE 81 MG TABLET. PO SCH (09:00)
[2020-04-19] MEDS: AMIODARONE HCL 200 MG TABLET. PO SCH (09:04)
[2020-04-19] MEDS: SERTRALINE 50 MG TABLET. PO SCH (09:05)
[2020-04-19] MEDS: LISINOPRIL 2.5 MG TABLET PO SCH (09:05)
[2020-04-19] MEDS: LACTOBACILLUS RHAMNOSUS GG 1 CAPSULE. PO SCH ×2 (09:06→20:57)
[2020-04-19] MEDS: MEMANTINE 10 MG TABLET. PO SCH ×2 (09:06→20:57)
[2020-04-19] MEDS: GABAPENTIN 300 MG CAPSULE. PO SCH ×3 (09:06→20:57)
[2020-04-19] MEDS: CYANOCOBALAMIN (VITAMIN B-12) 1,000 MCG TABLET. PO SCH (09:06)
[2020-04-19] MEDS: METOPROLOL SUCC 24HR ER 25 MG TAB.ER.24H. PO SCH (09:06)
--- NOTE | 2020-04-19 12:02 | NUR ---
JAZLYN left a message for pt dtr, Mira, to contact JAZLYN to clarify her concerns when possible.
[2020-04-19] MEDS: QUEtiapine 25 MG TABLET. PO SCH ×2 (12:12→17:00)
[2020-04-19 15:25] VITALS: BP 96/63
--- NOTE | 2020-04-19 17:47 | NUR ---
Patient was sitting in hallway eating breakfast. Wandered most of the day. Did take a long nap between 2 and 4. Cooperative and compliant with meds. crushed in vanilla pudding. No concerns at this time.
[2020-04-19] MEDS: MIRTAZAPINE 7.5 MG TABLET. PO SCH (20:57)
[2020-04-19] MEDS: traZODone 50 MG TABLET. PO SCH (20:57)
[2020-04-19] MEDS: ATORVASTATIN CALCIUM 20 MG TABLET PO SCH (20:57)
--- NOTE | 2020-04-19 22:02 | PDOC ---
Exam Note: Hiren Note: Please also refer to the separate dictated note~for this date of service dictated separately.~Patient seen individually. Discussed the patient with Nursing staff reviewed the chart.~Reviewed interim history and current functioning. Reviewed vital signs,~Labs/ Radiology~and current medications noted below. Continue current treatment with the changes noted in the dictated addendum note Assessment: Vital Signs/I&O: Vital Signs Date Time Temp Pulse Resp B/P (MAP) Pulse Ox O2 Delivery O2 Flow Rate FiO2 04/19/20 15:25 97.8 59 18 96/63 (74) 99 Room Air I & O 04/18/20 04/18/20 04/19/20 15:00 23:00 07:00 Intake Total 565 ml 805 ml Balance 565 ml 805 ml Current Medications: I have reviewed the current psychotropics carefully including drug interactions. Risk benefit ratio favors no change other than as noted in my dictated progress note. Diagnosis: Problems: (1) Impulse control disorder, unspecified (2) Anxiety disorder, unspecified (3) Dementia, vascular, with depression (4) Dementia, vascular, with delusions (5) Dementia in Alzheimer's disease with depression (6) Dementia in Alzheimer's disease with delusions (7) Dementia of the Alzheimer's type with early onset with behavioral disturbance (8) Major neurocognitive disorder GEOVANI VIEIRA MD Apr 19, 2020 22:02
[2020-04-20] MEDS ORDERED: ACETAMINOPHEN 325 MG TABLET PO PRN (03:00)
--- NOTE | 2020-04-20 05:43 | NUR ---
Pt withdrawn, pleasant, drowsy. He is cooperative with medications and cares and takes them crushed in pudding. Woke up early this morning with back pain. Tylenol administered. Dry, flaky skin noted and hardened black lesion about 1.5 cm on right anterior shoulder. Will continue to monitor.
[2020-04-20 06:29] VITALS: BP 112/72
[2020-04-20] MEDS: AMIODARONE HCL 200 MG TABLET. PO SCH (08:06)
[2020-04-20] MEDS: GABAPENTIN 300 MG CAPSULE. PO SCH ×3 (08:06→20:27)
[2020-04-20] MEDS: CHOLECALCIFEROL (VITAMIN D3) 50,000 UNIT CAPSULE PO SCH (08:06)
[2020-04-20] MEDS: ASPIRIN CHEWABLE 81 MG TABLET. PO SCH (08:06)
[2020-04-20] MEDS: SERTRALINE 50 MG TABLET. PO SCH (08:07)
[2020-04-20] MEDS: CYANOCOBALAMIN (VITAMIN B-12) 1,000 MCG TABLET. PO SCH (08:07)
[2020-04-20] MEDS: LISINOPRIL 2.5 MG TABLET PO SCH (08:07)
[2020-04-20] MEDS: LACTOBACILLUS RHAMNOSUS GG 1 CAPSULE. PO SCH ×2 (08:07→20:25)
[2020-04-20] MEDS: MEMANTINE 10 MG TABLET. PO SCH ×2 (08:07→20:25)
[2020-04-20] MEDS: METOPROLOL SUCC 24HR ER 25 MG TAB.ER.24H. PO SCH (08:07)
--- NOTE | 2020-04-20 09:37 | NUR ---
Patient compliant with assessment and medication. Patient states that he slept well and has no needs for today.
[2020-04-20] MEDS: QUEtiapine 25 MG TABLET. PO SCH ×2 (12:33→16:56)
[2020-04-20 15:56] VITALS: BP 107/71
[2020-04-20] MEDS: ATORVASTATIN CALCIUM 20 MG TABLET PO SCH (20:25)
[2020-04-20] MEDS: traZODone 50 MG TABLET. PO SCH (20:25)
[2020-04-20] MEDS: MIRTAZAPINE 7.5 MG TABLET. PO SCH (20:25)
--- NOTE | 2020-04-20 21:53 | PDOC ---
Exam Note: Hiren Note: Please also refer to the separate dictated note~for this date of service dictated separately.~Patient seen individually. Discussed the patient with Nursing staff reviewed the chart.~Reviewed interim history and current functioning. Reviewed vital signs,~Labs/ Radiology~and current medications noted below. Continue current treatment with the changes noted in the dictated addendum note Assessment: Vital Signs/I&O: Vital Signs Date Time Temp Pulse Resp B/P (MAP) Pulse Ox O2 Delivery O2 Flow Rate FiO2 04/20/20 15:56 97.7 80 20 107/71 (83) 94 Room Air I & O 04/19/20 04/19/20 04/20/20 15:00 23:00 07:00 Intake Total 550 ml 445 ml Balance 550 ml 445 ml Current Medications: Meds: Current Medications Medications (Trade) Dose Ordered Sig/Nelly Route PRN Reason Start Time Stop Time Status Last Admin Dose Admin Acetaminophen (Tylenol) 650 mg PRN Q6HRS PRN PO MILD PAIN / TEMP > 100.3'F 04/20/20 03:00 04/20/20 04:00 I have reviewed the current psychotropics carefully including drug interactions. Risk benefit ratio favors no change other than as noted in my dictated progress note. Diagnosis: Problems: (1) Impulse control disorder, unspecified (2) Anxiety disorder, unspecified (3) Dementia, vascular, with depression (4) Dementia, vascular, with delusions (5) Dementia in Alzheimer's disease with depression (6) Dementia in Alzheimer's disease with delusions (7) Dementia of the Alzheimer's type with early onset with behavioral disturbance (8) Major neurocognitive disorder GEOVANI VIEIRA MD Apr 20, 2020 21:52
--- NOTE | 2020-04-20 23:51 | NUR ---
Pt asleep in his bed all evening. Compliant with one bite of crushed medications and then went back to sleep.
[2020-04-21 05:58] VITALS: BP 155/90
--- NOTE | 2020-04-21 07:21 | PDOC ---
Exam Note: Hiren Note: This note is a late entry for 04/18/2020 covers elements not covered in my initial note. Subjective: The patient was seen face to face in the evening of 04/18/2020 with Aleksandra LINDQUIST. Discussed with nursing staff, reviewed the chart. The patient slept 8-3/4 hours previous night. He remains confused, often ambulates with eyes closed. Review of Systems: Ambulation impaired with walker. No CV, , pulmonary, ENT system symptoms on review. Mental Status Exam: Oriented to himself. He is quite pleasant, interactive, singing and dancing in groups, quite an improvement. Insight and judgment, recent and remote memory, attention and concentration, fund of knowledge is poor consistent with his diagnoses. Laboratory Data: Reviewed. Impression: Major neurocognitive disorder Alzheimers vascular with delusion, depression, behavioral disturbance. Anxiety disorder unspecified. Impulse control disorder unspecified. Plan: Continue current psychotropics. Assessment: Vital Signs/I&O: Vital Signs Date Time Temp Pulse Resp B/P (MAP) Pulse Ox O2 Delivery O2 Flow Rate FiO2 04/21/20 05:58 97.2 63 20 155/90 (111) 97 04/20/20 15:56 Room Air I & O 04/20/20 04/20/20 04/21/20 15:00 23:00 07:00 Intake Total 480 ml 360 ml 0 ml Balance 480 ml 360 ml 0 ml Current Medications: I have reviewed the current psychotropics carefully including drug interactions. Risk benefit ratio favors no change other than as noted in my dictated progress note. Diagnosis: Problems: (1) Impulse control disorder, unspecified (2) Anxiety disorder, unspecified (3) Dementia, vascular, with depression (4) Dementia, vascular, with delusions (5) Dementia in Alzheimer's disease with depression (6) Dementia in Alzheimer's disease with delusions (7) Dementia of the Alzheimer's type with early onset with behavioral di sturbance (8) Major neurocognitive disorder GEOVANI VIEIRA MD Apr 21, 2020 07:21
--- NOTE | 2020-04-21 07:43 | PDOC ---
Exam Note: Hiren Note: This note is a late entry for 04/19/2020 covers elements not covered in my initial note. Subjective: The patient was seen face to face in the evening of 04/19/2020 with Frances LINDQUIST. Discussed with nursing staff, reviewed the chart. The patient slept 6-3/4 hours previous night. He has taken a long nap and doing better after that, otherwise wandering the unit, calm and fairly happy. Review of Systems: Ambulation impaired with walker. No CV, , pulmonary, ENT system symptoms on review. Vision is poor. Mental Status Exam: Oriented to himself. He is quite pleasant, interactive, dancing in groups, quite an improvement. Insight and judgment, recent and remote memory, attention and concentration, fund of knowledge is poor consistent with his diagnoses. Laboratory Data: Reviewed. Impression: Major neurocognitive disorder Alzheimers vascular with delusion, depression, behavioral disturbance. Anxiety disorder unspecified. Impulse cont rol disorder unspecified. Plan: Continue current psychotropics. Assessment: Vital Signs/I&O: Vital Signs Date Time Temp Pulse Resp B/P (MAP) Pulse Ox O2 Delivery O2 Flow Rate FiO2 04/21/20 05:58 97.2 63 20 155/90 (111) 97 04/20/20 15:56 Room Air I & O 04/20/20 04/20/20 04/21/20 14:59 22:59 06:59 Intake Total 480 ml 360 ml 0 ml Balance 480 ml 360 ml 0 ml Current Medications: I have reviewed the current psychotropics carefully including drug interactions. Risk benefit ratio favors no change other than as noted in my dictated progress note. Diagnosis: Problems: (1) Impulse control disorder, unspecified (2) Anxiety disorder, unspecified (3) Dementia, vascular, with depression (4) Dementia, vascular, with delusions (5) Dementia in Alzheimer's disease with depression (6) Dementia in Alzheimer's disease with delusions (7) Dementia of the Alzheimer's type with early onset with behavioral disturbance (8) Major neurocognitive disorder GEOVANI VIEIRA MD Apr 21, 2020 07:42
--- NOTE | 2020-04-21 08:02 | PDOC ---
Exam Note: Hiren Note: This note is a late entry for 04/20/2020 covers elements not covered in my initial note. Subjective: The patient was seen face to face in the evening of 04/20/2020 with Segun LINDQUIST. Discussed with nursing staff, reviewed the chart. The patient slept 7-1/4 hours previous night. He is pleasant, using a walker. Review of Systems: Ambulation impaired with walker. No CV, , pulmonary, ENT system symptoms on review. Mental Status Exam: Oriented to himself. He is quite pleasant, interactive. Remains intermittently psychotic, talking about democrat in the hallway. Insight and judgment, recent and remote memory, attention and concentration, fund of knowledge is poor consistent with his diagnoses. Laboratory Data: Reviewed. Impression: Major neurocognitive disorder Alzheimers vascular with delusion, depression, behavioral disturbance. Anxiety disorder unspecified. Impulse control disorder unspecified. Plan: Continue current psychotropics. Assessment: Vital Signs/I&O: Vital Signs Date Time Temp Pulse Resp B/P (MAP) Pulse Ox O2 Delivery O2 Flow Rate FiO2 04/21/20 05:58 97.2 63 20 155/90 (111) 97 04/20/20 15:56 Room Air I & O 04/20/20 04/20/20 04/21/20 15:00 23:00 07:00 Intake Total 480 ml 360 ml 0 ml Balance 480 ml 360 ml 0 ml Current Medications: I have reviewed the current psychotropics carefully including drug interactions. Risk benefit ratio favors no change other than as noted in my dictated progress note. Diagnosis: Problems: (1) Impulse control disorder, unspecified (2) Anxiety disorder, unspecified (3) Dementia, vascular, with depression (4) Dementia, vascular, with delusions (5) Dementia in Alzheimer's disease with depression (6) Dementia in Alzheimer's disease with delusions (7) Dementia of the Alzheimer's type with early onset with behavioral disturb ance (8) Major neurocognitive disorder GEOVANI VIEIRA MD Apr 21, 2020 08:02
[2020-04-21] MEDS: ASPIRIN CHEWABLE 81 MG TABLET. PO SCH (08:03)
[2020-04-21] MEDS: LACTOBACILLUS RHAMNOSUS GG 1 CAPSULE. PO SCH ×2 (08:04→20:17)
[2020-04-21] MEDS: AMIODARONE HCL 200 MG TABLET. PO SCH (08:04)
[2020-04-21] MEDS: METOPROLOL SUCC 24HR ER 25 MG TAB.ER.24H. PO SCH (08:04)
[2020-04-21] MEDS: MEMANTINE 10 MG TABLET. PO SCH ×2 (08:04→20:16)
[2020-04-21] MEDS: GABAPENTIN 300 MG CAPSULE. PO SCH ×3 (08:04→20:17)
[2020-04-21] MEDS: LISINOPRIL 2.5 MG TABLET PO SCH (08:04)
[2020-04-21] MEDS: CYANOCOBALAMIN (VITAMIN B-12) 1,000 MCG TABLET. PO SCH (08:05)
[2020-04-21] MEDS: SERTRALINE 50 MG TABLET. PO SCH (08:05)
--- NOTE | 2020-04-21 09:24 | NUR ---
Patient compliant with assessment and medication. Patient states that he slept well and has no needs for today.
[2020-04-21] MEDS: QUEtiapine 25 MG TABLET. PO SCH ×2 (12:17→16:44)
[2020-04-21 16:03] VITALS: BP 121/75
[2020-04-21] MEDS: MIRTAZAPINE 7.5 MG TABLET. PO SCH (20:16)
[2020-04-21] MEDS: ATORVASTATIN CALCIUM 20 MG TABLET PO SCH (20:16)
[2020-04-21] MEDS: traZODone 50 MG TABLET. PO SCH (20:16)
--- NOTE | 2020-04-21 20:54 | PDOC ---
Exam Note: Hiren Note: Please also refer to the separate dictated note~for this date of service dictated separately.~Patient seen individually. Discussed the patient with Nursing staff reviewed the chart.~Reviewed interim history and current functioning. Reviewed vital signs,~Labs/ Radiology~and current medications noted below. Continue current treatment with the changes noted in the dictated addendum note Assessment: Vital Signs/I&O: Vital Signs Date Time Temp Pulse Resp B/P (MAP) Pulse Ox O2 Delivery O2 Flow Rate FiO2 04/21/20 16:03 98.0 71 16 121/75 (90) 95 Room Air I & O 04/20/20 04/20/20 04/21/20 15:00 23:00 07:00 Intake Total 480 ml 360 ml 0 ml Balance 480 ml 360 ml 0 ml Current Medications: I have reviewed the current psychotropics carefully including drug interactions. Risk benefit ratio favors no change other than as noted in my dictated progress note. Diagnosis: Problems: (1) Impulse control disorder, unspecified (2) Anxiety disorder, unspecified (3) Dementia, vascular, with depression (4) Dementia, vascular, with delusions (5) Dementia in Alzheimer's disease with depression (6) Dementia in Alzheimer's disease with delusions (7) Dementia of the Alzheimer's type with early onset with behavioral disturbance (8) Major neurocognitive disorder GEOVANI VIEIRA MD Apr 21, 2020 20:54
--- NOTE | 2020-04-21 22:51 | NUR ---
Pt calm and pleasantly confused. Pt has been ambulating around unit this evening. Compliant with crushed medications.
[2020-04-22 06:08] VITALS: BP 145/78
[2020-04-22 07:33] LABS: BASO % 1 % (0-3); EOS # 0.2 x10^3/uL (0.0-0.7); EOS % 4 % (0-3); HEMATOCRIT 37.1 % (39.0-53.0); HEMOGLOBIN 11.8 g/dL (13.0-17.5); LYMPH % 17 % (24-48); MEAN CORPUSCULAR HEMOGLOBIN 29 pg (25-35); MEAN CORPUSCULAR HGB CONC 32 g/dL (31-37); MEAN CORPUSCULAR VOLUME 92 fL (79-100); MONO # 0.5 x10^3/uL (0.0-1.1); MONO % 8 % (0-9); NEUT # 4.4 x10^3uL (1.8-7.7); NEUT % 71 % (31-73); PLATELET COUNT 129 x10^3/uL (140-400); RED BLOOD COUNT 4.02 x10^6/uL (4.30-5.70); RED CELL DISTRIBUTION WIDTH 14.9 % (11.5-14.5); WHITE BLOOD COUNT 6.2 x10^3/uL (4.0-11.0)
[2020-04-22 07:46] LABS: ALBUMIN 3.2 g/dL (3.4-5.0); ALBUMIN/GLOBULIN RATIO 1.1 (1.0-1.7); CALCIUM 8.3 mg/dL (8.5-10.1); CREATININE 1.2 mg/dL (0.7-1.3); GFR 58.9; POTASSIUM 4.2 mmol/L (3.5-5.1); TOTAL BILIRUBIN 0.3 mg/dL (0.2-1.0); TOTAL PROTEIN 6.2 g/dL (6.4-8.2)
[2020-04-22] MEDS: MEMANTINE 10 MG TABLET. PO SCH ×2 (09:35→20:25)
[2020-04-22] MEDS: ASPIRIN CHEWABLE 81 MG TABLET. PO SCH (09:35)
[2020-04-22] MEDS: LACTOBACILLUS RHAMNOSUS GG 1 CAPSULE. PO SCH ×2 (09:36→20:25)
[2020-04-22] MEDS: AMIODARONE HCL 200 MG TABLET. PO SCH (09:36)
[2020-04-22] MEDS: GABAPENTIN 300 MG CAPSULE. PO SCH ×3 (09:36→20:26)
[2020-04-22] MEDS: LISINOPRIL 2.5 MG TABLET PO SCH (09:36)
[2020-04-22] MEDS: SERTRALINE 50 MG TABLET. PO SCH (09:37)
[2020-04-22] MEDS: METOPROLOL SUCC 24HR ER 25 MG TAB.ER.24H. PO SCH (09:37)
[2020-04-22] MEDS: CYANOCOBALAMIN (VITAMIN B-12) 1,000 MCG TABLET. PO SCH (09:37)
[2020-04-22] MEDS: QUEtiapine 25 MG TABLET. PO SCH ×2 (12:41→17:01)
[2020-04-22 16:03] VITALS: BP 101/66
[2020-04-22] MEDS: MIRTAZAPINE 7.5 MG TABLET. PO SCH (20:25)
[2020-04-22] MEDS: traZODone 50 MG TABLET. PO SCH (20:25)
[2020-04-22] MEDS: ATORVASTATIN CALCIUM 20 MG TABLET PO SCH (20:26)
--- NOTE | 2020-04-22 21:15 | PDOC ---
Exam Note: Hiren Note: Please also refer to the separate dictated note~for this date of service dictated separately.~Patient seen individually. Discussed the patient with Nursing staff reviewed the chart.~Reviewed interim history and current functioning. Reviewed vital signs,~Labs/ Radiology~and current medications noted below. Continue current treatment with the changes noted in the dictated addendum note Assessment: Vital Signs/I&O: Vital Signs Date Time Temp Pulse Resp B/P (MAP) Pulse Ox O2 Delivery O2 Flow Rate FiO2 04/22/20 16:03 98.6 57 19 101/66 (78) 99 04/21/20 16:03 Room Air I & O 04/21/20 04/21/20 04/22/20 15:00 23:00 07:00 Intake Total 720 ml 220 ml Balance 720 ml 220 ml Labs: Laboratory Tests Test 04/22/20 06:50 White Blood Count 6.2 x10^3/uL (4.0-11.0) Red Blood Count 4.02 x10^6/uL (4.30-5.70) L Hemoglobin 11.8 g/dL (13.0-17.5) L Hematocrit 37.1 % (39.0-53.0) L Mean Corpuscular Volume 92 fL (79-100) Mean Corpuscular Hemoglobin 29 pg (25-35) Mean Corpuscular Hemoglobin Concent 32 g/dL (31-37) Red Cell Distribution Width 14.9 % (11.5-14.5) H Platelet Count 129 x10^3/uL (140-400) L Neutrophils (%) (Auto) 71 % (31-73) Lymphocytes (%) (Auto) 17 % (24-48) L Monocytes (%) (Auto) 8 % (0-9) Eosinophils (%) (Auto) 4 % (0-3) H Basophils (%) (Auto) 1 % (0-3) Neutrophils # (Auto) 4.4 x10^3uL (1.8-7.7) Lymphocytes # (Auto) 1.0 x10^3/uL (1.0-4.8) Monocytes # (Auto) 0.5 x10^3/uL (0.0-1.1) Eosinophils # (Auto) 0.2 x10^3/uL (0.0-0.7) Basophils # (Auto) 0.0 x10^3/uL (0.0-0.2) Sodium Level 143 mmol/L (136-145) Potassium Level 4.2 mmol/L (3.5-5.1) Chloride Level 108 mmol/L (98-107) H Carbon Dioxide Level 28 mmol/L (21-32) Anion Gap 7 (6-14) Blood Urea Nitrogen 32 mg/dL (8-26) H Creatinine 1.2 mg/dL (0.7-1.3) Estimated GFR (Cockcroft-Gault) 58.9 BUN/Creatinine Ratio 27 (6-20) H Glucose Level 90 mg/dL (70-99) Calcium Level 8.3 mg/dL (8.5-10.1) L Total Bilirubin 0.3 mg/dL (0.2-1.0) Aspartate Amino Transferase (AST) 20 U/L (15-37) Alanine Aminotransferase (ALT) 29 U/L (16-63) Alkaline Phosphatase 63 U/L (46-116) Total Protein 6.2 g/dL (6.4-8.2) L Albumin 3.2 g/dL (3.4-5.0) L Albumin/Globulin Ratio 1.1 (1.0-1.7) Current Medications: I have reviewed the current psychotropics carefully including drug interactions. Risk benefit ratio favors no change other than as noted in my dictated progress note. Diagnosis: Problems: (1) Impulse control disorder, unspecified (2) Anxiety disorder, unspecified (3) Dementia, vascular, with depression (4) Dementia, vascular, with delusions (5) Dementia in Alzheimer's disease with depression (6) Dementia in Alzheimer's disease with delusions (7) Dementia of the Alzheimer's type with early onset with behavioral disturbance (8) Major neurocognitive disorder GEOVANI VIEIRA MD Apr 22, 2020 21:15
--- NOTE | 2020-04-22 23:46 | NUR ---
Pt is pleasantly confused. Wandering around the unit this evening. Compliant with crushed medications.
[2020-04-23 05:56] VITALS: BP 109/60
--- NOTE | 2020-04-23 08:01 | PDOC ---
Exam Note: Hiren Note: This note is a late entry for 04/22/2020 covers elements not covered in my initial note. Subjective: The patient was reviewed on telehealth rounds in the evening of 04/22/2020 with Segun LINDQUIST. Discussed with nursing staff, reviewed the chart. The patient slept 7-1/4 hours previous night. The patient remains confused, wanders the hallways. He ambulates with walker, sometimes forges to use this. Review of Systems: Ambulation impaired with walker. No CV, , pulmonary, ENT system symptoms on review. Mental Status Exam: Oriented to himself. He has been calmer, happier. Insight and judgment, recent and remote memory, attention and concentration, fund of knowledge is poor consistent with his diagnoses. Laboratory Data: Reviewed. Impression: Major neurocognitive disorder Alzheimers vascular with delusion, depression, behavioral disturbance. Anxiety disorder unspecified. Impulse control disorder unspecified. Plan: Continue current psychotropics. Assessment: Vital Signs/I&O: Vital Signs Date Time Temp Pulse Resp B/P (MAP) Pulse Ox O2 Delivery O2 Flow Rate FiO2 04/23/20 05:56 97.5 52 20 109/60 (76) 97 04/21/20 16:03 Room Air I & O 04/22/20 04/22/20 04/23/20 14:59 22:59 06:59 Intake Total 480 ml 320 ml Balance 480 ml 320 ml Current Medications: I have reviewed the current psychotropics carefully including drug interactions. Risk benefit ratio favors no change other than as noted in my dictated progress note. Diagnosis: Problems: (1) Impulse control disorder, unspecified (2) Anxiety disorder, unspecified (3) Dementia, vascular, with depression (4) Dementia, vascular, with delusions (5) Dementia in Alzheimer's disease with depression (6) Dementia in Alzheimer's disease with delusions (7) Dementia of the Alzheimer's type with early onset with behavioral disturb ance (8) Major neurocognitive disorder GEOVANI VIEIRA MD Apr 23, 2020 08:01
--- NOTE | 2020-04-23 08:17 | PDOC ---
Exam Note: Hiren Note: This note is a late entry for 04/22/2020 covers elements not covered in my initial note. Subjective: The patient was seen face to face in the evening of 04/22/2020 with Ariel LINDQUIST. Discussed with nursing staff, reviewed the chart. The patient has had a good day. He is compliant with medications, redirectable. I have not been made aware of any other behavioral problems. Review of Systems: Ambulation impaired with walker. No CV, , pulmonary, ENT system symptoms on review. Mental Status Exam: Oriented to himself. He has been pleasant. Insight and judgment, recent and remote memory, attention and concentration, fund of knowledge is poor consistent with his diagnoses. Laboratory Data: Reviewed. Impression: Major neurocognitive disorder Alzheimers vascular with delusion, depression, behavioral disturbance. Anxiety disorder unspecified. Impulse control disorder unspecified. Plan: Continue current psychotropics. Assessment: Vital Signs/I&O: Vital Signs Date Time Temp Pulse Resp B/P (MAP) Pulse Ox O2 Delivery O2 Flow Rate FiO2 04/23/20 05:56 97.5 52 20 109/60 (76) 97 04/21/20 16:03 Room Air I & O 04/22/20 04/22/20 04/23/20 15:00 23:00 07:00 Intake Total 480 ml 320 ml Balance 480 ml 320 ml Current Medications: I have reviewed the current psychotropics carefully including drug interactions. Risk benefit ratio favors no change other than as noted in my dictated progress note. Diagnosis: Problems: (1) Impulse control disorder, unspecified (2) Anxiety disorder, unspecified (3) Dementia, vascular, with depression (4) Dementia, vascular, with delusions (5) Dementia in Alzheimer's disease with depression (6) Dementia in Alzheimer's disease with delusions (7) Dementia of the Alzheimer's type with early onset with behavioral disturbance (8) Major neurocognitive disorder GEOVANI VIEIRA MD Apr 23, 2020 08:17
[2020-04-23] MEDS: ASPIRIN CHEWABLE 81 MG TABLET. PO SCH (08:59)
[2020-04-23] MEDS: CYANOCOBALAMIN (VITAMIN B-12) 1,000 MCG TABLET. PO SCH (09:00)
[2020-04-23] MEDS: LISINOPRIL 2.5 MG TABLET PO SCH (09:00)
[2020-04-23] MEDS: METOPROLOL SUCC 24HR ER 25 MG TAB.ER.24H. PO SCH (09:00)
[2020-04-23] MEDS: LACTOBACILLUS RHAMNOSUS GG 1 CAPSULE. PO SCH ×2 (09:00→21:15)
[2020-04-23 09:02] VITALS: BP 100/64
[2020-04-23] MEDS: GABAPENTIN 300 MG CAPSULE. PO SCH ×3 (09:04→21:15)
[2020-04-23] MEDS: AMIODARONE HCL 200 MG TABLET. PO SCH (09:04)
[2020-04-23] MEDS: MEMANTINE 10 MG TABLET. PO SCH ×2 (09:04→21:15)
[2020-04-23] MEDS: SERTRALINE 50 MG TABLET. PO SCH (09:05)
--- NOTE | 2020-04-23 12:15 | NUR ---
Pt is calm, confused, cooperative, and compliant. No agitation, no aggression, no hallucinations, or delusions noted. He is compliant with his medication and assessment.
[2020-04-23] MEDS: QUEtiapine 25 MG TABLET. PO SCH ×2 (12:36→17:23)
--- NOTE | 2020-04-23 13:33 | NUR ---
JAZLYN attempted to return Aniyah's call from [facility]. Aniyah is out today; however, JAZLYN was able to speak with Kimberly and give her an update on pt. As it stands pt unit has received 1 negative test and 4 positive test from Wednesday. Kimberly reports that in the event that [facility] absolutely wishes to have pt discharged, we would have to notify the family that he will return to a Covid positive floor. She understands that pt cannot stay her for a significant amount of time and is appreciative of the time [facility] has kept pt so they could tackle their Covid concerns on pt hallway. JAZLYN will check with the team, pt dtr and get back to Kimberly with the discharge recommendation and time frame.
[2020-04-23 16:05] VITALS: BP 116/61
--- NOTE | 2020-04-23 20:43 | PDOC ---
Exam Note: Hiren Note: Please also refer to the separate dictated note~for this date of service dictated separately.~Patient seen individually. Discussed the patient with Nursing staff reviewed the chart.~Reviewed interim history and current functioning. Reviewed vital signs,~Labs/ Radiology~and current medications noted below. Continue current treatment with the changes noted in the dictated addendum note Assessment: Vital Signs/I&O: Vital Signs Date Time Temp Pulse Resp B/P (MAP) Pulse Ox O2 Delivery O2 Flow Rate FiO2 04/23/20 16:05 98.2 63 18 116/61 (79) 97 04/21/20 16:03 Room Air I & O 04/22/20 04/22/20 04/23/20 14:59 22:59 06:59 Intake Total 480 ml 320 ml Balance 480 ml 320 ml Current Medications: I have reviewed the current psychotropics carefully including drug interactions. Risk benefit ratio favors no change other than as noted in my dictated progress note. Diagnosis: Problems: (1) Impulse control disorder, unspecified (2) Anxiety disorder, unspecified (3) Dementia, vascular, with depression (4) Dementia, vascular, with delusions (5) Dementia in Alzheimer's disease with depression (6) Dementia in Alzheimer's disease with delusions (7) Dementia of the Alzheimer's type with early onset with behavioral disturbance (8) Major neurocognitive disorder GEOVANI VIEIRA MD Apr 23, 2020 20:43
[2020-04-23] MEDS: traZODone 50 MG TABLET. PO SCH (21:15)
[2020-04-23] MEDS: MIRTAZAPINE 7.5 MG TABLET. PO SCH (21:15)
[2020-04-23] MEDS: ATORVASTATIN CALCIUM 20 MG TABLET PO SCH (21:15)
--- NOTE | 2020-04-24 03:18 | NUR ---
Nursing Note The patient was located in his room laying in bed for his assessment and medication pass. The patient was compliant with his medication and took them crushed in pudding. The patient was pleasant during interactions with this nurse.
[2020-04-24 05:40] VITALS: BP 153/89
[2020-04-24] MEDS: AMIODARONE HCL 200 MG TABLET. PO SCH (07:59)
[2020-04-24] MEDS: MEMANTINE 10 MG TABLET. PO SCH ×2 (08:00→20:55)
[2020-04-24] MEDS: CYANOCOBALAMIN (VITAMIN B-12) 1,000 MCG TABLET. PO SCH (08:00)
[2020-04-24] MEDS: ASPIRIN CHEWABLE 81 MG TABLET. PO SCH (08:00)
[2020-04-24] MEDS: LACTOBACILLUS RHAMNOSUS GG 1 CAPSULE. PO SCH ×2 (08:00→20:55)
[2020-04-24] MEDS: METOPROLOL SUCC 24HR ER 25 MG TAB.ER.24H. PO SCH (08:00)
[2020-04-24] MEDS: SERTRALINE 50 MG TABLET. PO SCH (08:00)
[2020-04-24] MEDS: LISINOPRIL 2.5 MG TABLET PO SCH (08:00)
[2020-04-24] MEDS: GABAPENTIN 300 MG CAPSULE. PO SCH ×3 (08:01→21:04)
--- NOTE | 2020-04-24 10:24 | NUR ---
NURSING NOTE PT WAS IN BED THIS AM UPON ASSESSMENT AND MEDICATION ADMINISTRATION. PT TAKES MEDS CRUSHED IN PUDDING, NO COMPLICATIONS THIS AM. PT REQUIRED ASSISTANCE THIS AM WITH BREAKFAST. PT WAS ALERT TO NAME ONLY THIS AM. PT WONDERS AROUND FACILITY INDEPENDENTLY, CALM, AND COOPERATIVE WITH CARES. PT TOOK SHOWER THIS AM WITH NO COMPLICATIONS. PT CURRENTLY AMBULATING HALLWAY. WILL CONTINUE TO MONITOR. AMEENA VERA.
[2020-04-24] MEDS: QUEtiapine 25 MG TABLET. PO SCH ×2 (11:59→17:06)
[2020-04-24 16:31] VITALS: BP 114/71
--- NOTE | 2020-04-24 20:40 | PDOC ---
Exam Note: Hiren Note: Please also refer to the separate dictated note~for this date of service dictated separately.~Patient seen individually. Discussed the patient with Nursing staff reviewed the chart.~Reviewed interim history and current functioning. Reviewed vital signs,~Labs/ Radiology~and current medications noted below. Continue current treatment with the changes noted in the dictated addendum note Assessment: Vital Signs/I&O: Vital Signs Date Time Temp Pulse Resp B/P (MAP) Pulse Ox O2 Delivery O2 Flow Rate FiO2 04/24/20 16:31 97.8 73 18 114/71 (85) 100 04/21/20 16:03 Room Air I & O 04/23/20 04/23/20 04/24/20 14:59 22:59 06:59 Intake Total 600 ml 120 ml Balance 600 ml 120 ml Current Medications: I have reviewed the current psychotropics carefully including drug interactions. Risk benefit ratio favors no change other than as noted in my dictated progress note. Diagnosis: Problems: (1) Impulse control disorder, unspecified (2) Anxiety disorder, unspecified (3) Dementia, vascular, with depression (4) Dementia, vascular, with delusions (5) Dementia in Alzheimer's disease with depression (6) Dementia in Alzheimer's disease with delusions (7) Dementia of the Alzheimer's type with early onset with behavioral disturbance (8) Major neurocognitive disorder GEOVANI VIEIRA MD Apr 24, 2020 20:39
[2020-04-24] MEDS: ATORVASTATIN CALCIUM 20 MG TABLET PO SCH (20:55)
[2020-04-24] MEDS: traZODone 50 MG TABLET. PO SCH (20:55)
[2020-04-24] MEDS: MIRTAZAPINE 7.5 MG TABLET. PO SCH (20:55)
[2020-04-25] MEDS: MAGNESIUM HYDROXIDE 2,400 MG/30 ML ORAL.SUSP. PO PRN (01:17)
[2020-04-25 06:31] VITALS: BP 125/73
--- NOTE | 2020-04-25 06:56 | PDOC ---
Exam Note: Hiren Note: This note is a late entry for 04/23/2020 covers elements not covered in my initial note. Subjective: The patient was seen face to face in the evening of 04/23/2020 with Keely LINDQUIST. Discussed with nursing staff, reviewed the chart. The patient slept 7 hours previous night. He has been somewhat confused but very pleasant, cooperative, wanders the unit with his eyes closed and often his face mask is removed. Review of Systems: Ambulation impaired with walker. No CV, , pulmonary, ENT system symptoms on review. Mental Status Exam: Oriented to himself. He has been pleasant, somewhat confused. Insight and judgment, recent and remote memory, attention and concentration, fund of knowledge is poor consistent with his diagnoses. Laboratory Data: Reviewed. Impression: Major neurocognitive disorder Alzheimers vascular with delusion, depression, behavioral disturbance. Anxiety disorder unspecified. Impulse control disorder unspecified. Plan: Continue current psychotropics. Assessment: Vital Signs/I&O: Vital Signs Date Time Temp Pulse Resp B/P (MAP) Pulse Ox O2 Delivery O2 Flow Rate FiO2 04/25/20 06:31 97.0 55 16 125/73 (90) 97 04/21/20 16:03 Room Air I & O 04/24/20 04/24/20 04/25/20 15:00 23:00 07:00 Intake Total 440 ml 480 ml 500 ml Balance 440 ml 480 ml 500 ml Current Medications: I have reviewed the current psychotropics carefully including drug interactions. Risk benefit ratio favors no change other than as noted in my dictated progress note. Diagnosis: Problems: (1) Impulse control disorder, unspecified (2) Anxiety disorder, unspecified (3) Dementia, vascular, with depression (4) Dementia, vascular, with delusions (5) Dementia in Alzheimer's disease with depression (6) Dementia in Alzheimer's disease with delusions (7) Dementia of the Alzheimer's type with early onset with behavioral disturbance (8) Major neurocognitive disorder GEOVANI VIEIRA MD Apr 25, 2020 06:56
--- NOTE | 2020-04-25 07:28 | PDOC ---
Exam Note: Hiren Note: This note is a late entry for 04/24/2020 covers elements not covered in my initial note. Subjective: The patient was seen face to face in the evening of 04/24/2020 with Ashley LINDQUIST. Discussed with nursing staff, reviewed the chart. He slept 6-1/2 hours previous night. Review of Systems: Ambulation impaired with walker. No CV, , pulmonary, ENT system symptoms on review. Mental Status Exam: The patient is oriented to himself. He is wandering the hallways. Insight and judgment, recent and remote memory, attention and concentration, fund of knowledge is poor consistent with his diagnoses. Laboratory Data: Reviewed. Impression: Major neurocognitive disorder Alzheimers vascular with delusion, depression, behavioral disturbance. Anxiety disorder unspecified. Impulse control disorder unspecified. Plan: Continue current psychotropics. Assessment: Vital Signs/I&O: Vital Signs Date Time Temp Pulse Resp B/P (MAP) Pulse Ox O2 Delivery O2 Flow Rate FiO2 04/25/20 06:31 97.0 55 16 125/73 (90) 97 04/21/20 16:03 Room Air I & O 04/24/20 04/24/20 04/25/20 14:59 22:59 06:59 Intake Total 440 ml 480 ml 500 ml Balance 440 ml 480 ml 500 ml Current Medications: I have reviewed the current psychotropics carefully including drug interactions. Risk benefit ratio favors no change other than as noted in my dictated progress note. Diagnosis: Problems: (1) Impulse control disorder, unspecified (2) Anxiety disorder, unspecified (3) Dementia, vascular, with depression (4) Dementia, vascular, with delusions (5) Dementia in Alzheimer's disease with depression (6) Dementia in Alzheimer's disease with delusions (7) Dementia of the Alzheimer's type with early onset with behavioral disturbance (8) Major neurocognitive disorder GEOVANI VIEIRA MD Apr 25, 2020 07:28
[2020-04-25] MEDS: ASPIRIN CHEWABLE 81 MG TABLET. PO SCH (08:49)
[2020-04-25] MEDS: MEMANTINE 10 MG TABLET. PO SCH ×2 (08:52→20:15)
[2020-04-25] MEDS: LACTOBACILLUS RHAMNOSUS GG 1 CAPSULE. PO SCH ×2 (08:52→20:14)
[2020-04-25] MEDS: SERTRALINE 50 MG TABLET. PO SCH (08:53)
[2020-04-25] MEDS: GABAPENTIN 300 MG CAPSULE. PO SCH ×3 (08:53→20:14)
[2020-04-25] MEDS: CYANOCOBALAMIN (VITAMIN B-12) 1,000 MCG TABLET. PO SCH (08:53)
[2020-04-25] MEDS: LISINOPRIL 2.5 MG TABLET PO SCH (08:53)
[2020-04-25] MEDS: METOPROLOL SUCC 24HR ER 25 MG TAB.ER.24H. PO SCH (09:00)
[2020-04-25] MEDS: AMIODARONE HCL 200 MG TABLET. PO SCH (09:00)
--- NOTE | 2020-04-25 10:04 | NUR ---
Pt is calm, confused, cooperative, and compliant. No agitation, no aggression, no hallucinations, or delusions noted. He is compliant with his medication and assessment.
--- NOTE | 2020-04-25 10:36 | TX PLAN ---
Interdisciplinary Tx Plan Admission Information Apr 02, 2020 at 13:33 Legal Status (on Admission): Voluntary DPOA/Guardian Name: Mira Richard Contact Other Contact Name: [facility] Other Contact Verified Code Status: DNR Allergies: Coded Allergies: Penicillins (Verified Allergy, Intermediate, 03/28/20) donepezil (Verified Allergy, Intermediate, 03/28/20) galantamine (Verified Allergy, Intermediate, 03/28/20) Diagnoses Primary Diagnosis: Major neurocognitive disorder, Vascular Reasons for Admission: Aggressive, Combative, Poor impulse control Problem in Patient's Words: He always wants to leave. Always tells them he is devising a plan to "break out of this place". Additional Admission Comments: According to the intake, pt is aggressive, put his hands on staff's neck, tried to bite, punching licona and flipped tables when redirected for trying to leave. Problems Active Problems: Wandering Restless Agitation Inactive Problems: Medication compliant Pt Strengths/Limitations Ability for [place]: Poor Cognitive Functioning/Ability: Fair Communication Skills/Ability: Fair Financial Resources: Fair Insight/Judgement: Poor Intellectual Ability: Fair Physical Health: Fair Social Skills: Poor Stability in Family: Good Stability in School/Work: Poor Verbal Skills: Fair Discharge Criteria Discharge Criteria: Adequate arrangements @DC, Improved behavior, Improved mood/thought Preliminary Discharge Plan Preliminary DC Plan: Current Living Arrange. Special Precautions Fall Risk: Low Initial D/C Plan Pt will return to [facility] once stable Identified Discharge Needs: Follow up with psychiatrist Currently Utilized Resources Currently Utilized Resources/P: Primary Care Physician [place] [facility] Identified Problems/Hx/Goals Objectives/Short-Term Goals Short Term Goals: Dec. Aggression, Dec. Outbursts, Medication Stabilization, Monitor Med Effects Short Term Goals in Patient's: I want to get out of here Interventions/Frequency Staff Interventions/Frequency&: Psychiatrist to assess pt at least 3x per week for medication management. Social work to assess pt at least 2x per week to assess discharge needs, planning goals and barriers. Nursing to assess pt behaviors, medication effects and complete 15 minute checks. Encourage participation in group activities (if applicable) or 1:1 engagement as deemed by the activities assessment. History Vocational History: Pt worked for the [employer] for over 20 years. Pt ended up having a back injury and had to retire early. 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 Pt continues to be disorganized with her thoughts but compliant with all cares and staff direction. Pt does take his medications crushed in vanilla pudding; no major concerns as to what has brought him in upon admission. Pt is currently taking Mirtazapine, Namenda, Seroquel, Zoloft, Neurontin and Trazodone. Pt unit has Covid in which 1 person tested negative and 4 others are still positive with 1 positive staff member. JAZLYN will speak with pt family to see if they would be okay with pt returning to the unit where Covid is present. JAZLYN will continue to work with all parties to finalize discharge plans. DEENA MARIA Apr 25, 2020 10:36
[2020-04-25] MEDS: QUEtiapine 25 MG TABLET. PO SCH ×2 (12:54→17:08)
--- NOTE | 2020-04-25 14:55 | NUR ---
WEEKLY ACTIVITY THERAPY NOTE Date of Admission: 04/02 Date of AT Assessment: 04/05 Precipitating behaviors that initiated intake and admission: Patient was reported to be combative towards staff at facility, flipping tables, and increasingly aggressive. Goal aimed: increase time management and stimulation skills Initial Goal: Pt will participate in at least one individual or group Activity Therapy session before discharge. Repeat goal 04/11 Goal changed 04/18: Pt. will participate in at least three individual or group Activity Therapy session before discharge. Weekly progress towards goal: /3 Group participation level: 1 min Weekly highlights: tapping feet to music in movie yesterday Behaviors observed: similar to last week, calm and pleasant, easy to redirect Plan: no change to goal Beneficial adaptations: enjoys [place]
[2020-04-25 16:18] VITALS: BP 127/64
[2020-04-25] MEDS: traZODone 50 MG TABLET. PO SCH (20:15)
[2020-04-25] MEDS: MIRTAZAPINE 7.5 MG TABLET. PO SCH (20:15)
[2020-04-25] MEDS: ATORVASTATIN CALCIUM 20 MG TABLET PO SCH (20:15)
--- NOTE | 2020-04-25 20:54 | PDOC ---
Exam Note: Hiren Note: Please also refer to the separate dictated note~for this date of service dictated separately.~Patient seen individually. Discussed the patient with Nursing staff reviewed the chart.~Reviewed interim history and current functioning. Reviewed vital signs,~Labs/ Radiology~and current medications noted below. Continue current treatment with the changes noted in the dictated addendum note Assessment: Vital Signs/I&O: Vital Signs Date Time Temp Pulse Resp B/P (MAP) Pulse Ox O2 Delivery O2 Flow Rate FiO2 04/25/20 16:18 97.3 80 18 127/64 (85) 99 04/21/20 16:03 Room Air I & O 04/24/20 04/24/20 04/25/20 15:00 23:00 07:00 Intake Total 440 ml 480 ml 500 ml Balance 440 ml 480 ml 500 ml Current Medications: I have reviewed the current psychotropics carefully including drug interactions. Risk benefit ratio favors no change other than as noted in my dictated progress note. Diagnosis: Problems: (1) Impulse control disorder, unspecified (2) Anxiety disorder, unspecified (3) Dementia, vascular, with depression (4) Dementia, vascular, with delusions (5) Dementia in Alzheimer's disease with depression (6) Dementia in Alzheimer's disease with delusions (7) Dementia of the Alzheimer's type with early onset with behavioral disturbance (8) Major neurocognitive disorder GEOVANI VIEIRA MD Apr 25, 2020 20:54
--- NOTE | 2020-04-25 21:13 | NUR ---
Nursing Note: Pt sitting quietly in the hallway at shift change. Pt calm and pleasantly confused. Pt cooperative with assessment and compliant with medications administered crushed. No agitation or aggression noted thus far this shift.
[2020-04-26 06:01] VITALS: BP 110/73
[2020-04-26] MEDS: ASPIRIN CHEWABLE 81 MG TABLET. PO SCH (08:53)
[2020-04-26] MEDS: LACTOBACILLUS RHAMNOSUS GG 1 CAPSULE. PO SCH ×2 (08:53→20:00)
[2020-04-26] MEDS: AMIODARONE HCL 200 MG TABLET. PO SCH (08:54)
[2020-04-26] MEDS: CYANOCOBALAMIN (VITAMIN B-12) 1,000 MCG TABLET. PO SCH (08:54)
[2020-04-26] MEDS: LISINOPRIL 2.5 MG TABLET PO SCH (08:54)
[2020-04-26] MEDS: GABAPENTIN 300 MG CAPSULE. PO SCH ×3 (08:54→19:59)
[2020-04-26] MEDS: SERTRALINE 50 MG TABLET. PO SCH (08:55)
[2020-04-26] MEDS: MEMANTINE 10 MG TABLET. PO SCH ×2 (08:55→20:01)
[2020-04-26] MEDS: METOPROLOL SUCC 24HR ER 25 MG TAB.ER.24H. PO SCH (08:56)
[2020-04-26] MEDS: QUEtiapine 25 MG TABLET. PO SCH ×2 (11:23→16:22)
--- NOTE | 2020-04-26 12:04 | NUR ---
THIS MORNING PATIENT HAS BEEN PLEASANTLY CONFUSED AND ROAMING THE HALLS. PATIENT NEEDED SOME MINOR HELP WITH THEIR BREAKFAST AND TOOK ALL MEDS CRUSHED IN APPLESAUCE. PATIENT WONDERED INTO ANOTHER PATIENTS ROOM BUT WAS EASILY REORIENTED AND LEFT THE ROOM WITHOUT A PROBLEM. PATIENT IS CURRENTLY IN HALLWAY WAITING FOR LUNCH TO ARRIVE. Addendum: 04/26/20 at 1753 by PREETI GRANADOS RN PATIENT ATE MOST OF THEIR DINNER TRAY BUT STATED " THEY ARE TOO FULL TO EAT ANYMORE" PATIENT GIVEN MILK OF MAG AFTER DINNER. IN HOPES OF A BOWEL MOVEMENT SOON.
[2020-04-26 15:59] VITALS: BP 121/71
[2020-04-26] MEDS: MAGNESIUM HYDROXIDE 2,400 MG/30 ML ORAL.SUSP. PO PRN (17:44)
[2020-04-26] MEDS ORDERED: MAGNESIUM CITRATE 296 ML SOLUTION. PO ONE (19:45)
[2020-04-26] MEDS: MIRTAZAPINE 7.5 MG TABLET. PO SCH (19:59)
[2020-04-26] MEDS: ATORVASTATIN CALCIUM 20 MG TABLET PO SCH (20:00)
[2020-04-26] MEDS: traZODone 50 MG TABLET. PO SCH (20:00)
--- NOTE | 2020-04-26 21:01 | PDOC ---
Exam Note: Hiren Note: Please also refer to the separate dictated note~for this date of service dictated separately.~Patient seen individually. Discussed the patient with Nursing staff reviewed the chart.~Reviewed interim history and current functioning. Reviewed vital signs,~Labs/ Radiology~and current medications noted below. Continue current treatment with the changes noted in the dictated addendum note Assessment: Vital Signs/I&O: Vital Signs Date Time Temp Pulse Resp B/P (MAP) Pulse Ox O2 Delivery O2 Flow Rate FiO2 04/26/20 15:59 98.2 70 18 121/71 (88) 95 04/26/20 06:01 Room Air I & O 04/25/20 04/25/20 04/26/20 15:00 23:00 07:00 Intake Total 460 ml 60 ml 120 ml Balance 460 ml 60 ml 120 ml Current Medications: Meds: Current Medications Medications (Trade) Dose Ordered Sig/Nelly Route PRN Reason Start Time Stop Time Status Last Admin Dose Admin Magnesium Citrate (Citroma) 296 ml 1X ONCE PO 04/26/20 19:45 04/26/20 19:53 DC 04/26/20 20:04 I have reviewed the current psychotropics carefully including drug interactions. Risk benefit ratio favors no change other than as noted in my dictated progress note. Diagnosis: Problems: (1) Impulse control disorder, unspecified (2) Anxiety disorder, unspecified (3) Dementia, vascular, with depression (4) Dementia, vascular, with delusions (5) Dementia in Alzheimer's disease with depression (6) Dementia in Alzheimer's disease with delusions (7) Dementia of the Alzheimer's type with early onset with behavioral disturbance (8) Major neurocognitive disorder GEOVANI VIEIRA MD Apr 26, 2020 21:01
--- NOTE | 2020-04-26 21:54 | NUR ---
Pt wandering in the hallway at shift change. Pt calm and pleasantly confused. Pt cooperative with assessment and compliant with medications administered crushed. Pt abdomen distended, bowel sounds hypoactive, and tender to the touch. Call placed to Dr. Alexandre and new order received for Mag Citrate which was administered, pt tolerated without difficulty. Will await results. No agitation or aggression noted thus far this shift.
[2020-04-27 06:00] VITALS: BP 101/55
[2020-04-27] MEDS: ASPIRIN CHEWABLE 81 MG TABLET. PO SCH (07:58)
[2020-04-27] MEDS: LISINOPRIL 2.5 MG TABLET PO SCH (08:03)
[2020-04-27] MEDS: SERTRALINE 50 MG TABLET. PO SCH (08:04)
[2020-04-27] MEDS: LACTOBACILLUS RHAMNOSUS GG 1 CAPSULE. PO SCH ×2 (08:04→20:23)
[2020-04-27] MEDS: AMIODARONE HCL 200 MG TABLET. PO SCH (08:04)
[2020-04-27] MEDS: CYANOCOBALAMIN (VITAMIN B-12) 1,000 MCG TABLET. PO SCH (08:05)
[2020-04-27] MEDS: GABAPENTIN 300 MG CAPSULE. PO SCH ×3 (08:05→20:25)
[2020-04-27] MEDS: METOPROLOL SUCC 24HR ER 25 MG TAB.ER.24H. PO SCH (08:06)
[2020-04-27] MEDS: MEMANTINE 10 MG TABLET. PO SCH ×2 (08:06→20:23)
[2020-04-27] MEDS: CHOLECALCIFEROL (VITAMIN D3) 50,000 UNIT CAPSULE PO SCH (08:13)
[2020-04-27] MEDS: QUEtiapine 25 MG TABLET. PO SCH ×2 (11:56→17:18)
[2020-04-27 14:34] VITALS: BP 119/55
[2020-04-27 19:00] VITALS: BP 121/78
[2020-04-27] MEDS: ATORVASTATIN CALCIUM 20 MG TABLET PO SCH (20:23)
[2020-04-27] MEDS: MIRTAZAPINE 7.5 MG TABLET. PO SCH (20:23)
[2020-04-27] MEDS: traZODone 50 MG TABLET. PO SCH (20:23)
--- NOTE | 2020-04-27 20:54 | PDOC ---
Exam Note: Hiren Note: Please also refer to the separate dictated note~for this date of service dictated separately.~Patient seen individually. Discussed the patient with Nursing staff reviewed the chart.~Reviewed interim history and current functioning. Reviewed vital signs,~Labs/ Radiology~and current medications noted below. Continue current treatment with the changes noted in the dictated addendum note Assessment: Vital Signs/I&O: Vital Signs Date Time Temp Pulse Resp B/P (MAP) Pulse Ox O2 Delivery O2 Flow Rate FiO2 04/27/20 14:34 97.2 71 18 119/55 (76) 96 04/27/20 06:00 Room Air I & O 04/26/20 04/26/20 04/27/20 15:00 23:00 07:00 Intake Total 875 ml 340 ml Balance 875 ml 340 ml Current Medications: I have reviewed the current psychotropics carefully including drug interactions. Risk benefit ratio favors no change other than as noted in my dictated progress note. Diagnosis: Problems: (1) Impulse control disorder, unspecified (2) Anxiety disorder, unspecified (3) Dementia, vascular, with depression (4) Dementia, vascular, with delusions (5) Dementia in Alzheimer's disease with depression (6) Dementia in Alzheimer's disease with delusions (7) Dementia of the Alzheimer's type with early onset with behavioral disturbance (8) Major neurocognitive disorder GEOVANI VIEIRA MD Apr 27, 2020 20:54
--- NOTE | 2020-04-27 21:01 | NUR ---
Pt wandering in the hallway at shift change. Pt calm, pleasantly confused, and disorganized. Pt cooperative with assessment and compliant with medications administered crushed in pudding. No agitation or aggression noted thus far this evening.
[2020-04-28 06:38] VITALS: BP 121/82
--- NOTE | 2020-04-28 07:17 | PDOC ---
Exam Note: Hiren Note: This note is a late entry for 04/25/2020 covers elements not covered in my initial note. Subjective: The patient was seen face to face in the morning of 04/25/2020 for treatment team meeting with Mehreen Beyer Nikki (social media marketing manager), Ale, activity therapy staff, and Keely RN. Discussed with nursing staff, reviewed the chart. He slept 7 hours previous night. Appetite is 75%. He remains confused, pleasant, wanders the hallways, oblivious of where he is. Review of Systems: Ambulation impaired with walker. No CV, , pulmonary, ENT system symptoms on review. Mental Status Exam: The patient is oriented to himself. He is wandering the hallways, pleasant. Insight and judgment, recent and remote memory, attention and concentration, fund of knowledge is poor consistent with his diagnoses. Laboratory Data: Reviewed. Impression: Major neurocognitive disorder Alzheimers vascular with delusion, depression, behavioral disturbance. Anxiety disorder unspecified. Impulse control disorder unspecified. Plan: Continue current psychotropics. Assessment: Vital Signs/I&O: Vital Signs Date Time Temp Pulse Resp B/P (MAP) Pulse Ox O2 Delivery O2 Flow Rate FiO2 04/28/20 06:38 98.1 66 16 121/82 (95) 93 04/27/20 19:00 Room Air I & O 04/27/20 04/27/20 04/28/20 15:00 23:00 07:00 Intake Total 120 ml 720 ml Balance 120 ml 720 ml Current Medications: I have reviewed the current psychotropics carefully including drug interactions. Risk benefit ratio favors no change other than as noted in my dictated progress note. Diagnosis: Problems: (1) Impulse control disorder, unspecified (2) Anxiety disorder, unspecified (3) Dementia, vascular, with depression (4) Dementia, vascular, with delusions (5) Dementia in Alzheimer's disease with depression (6) Dementia in Alzheimer's disease with delusions (7) Dementia of the Alzheimer's type with early onset with behavioral disturbance (8) Major neurocognitive disorder GEOVANI VIEIRA MD Apr 28, 2020 07:17
--- NOTE | 2020-04-28 07:36 | PDOC ---
Exam Note: Hiren Note: This note is a late entry for 04/26/2020 covers elements not covered in my initial note. Subjective: The patient was seen face to face in the evening of 04/26/2020 with Ernie LINDQUIST. Discussed with nursing staff, reviewed the chart. He remains confused but has not been agitated. He walks with his eyes closed, sits with his eyes closed. The patient slept 6-3/4 hours previous night. Review of Systems: Ambulation impaired with walker. Poor vision. No CV, , pulmonary, ENT system symptoms on review. Mental Status Exam: The patient is oriented to himself. At times, the patient gets a little restless, but generally doing better. Insight and judgment, recent and remote memory, attention and concentration, fund of knowledge is poor consistent with his diagnoses. Laboratory Data: Reviewed. Impression: Major neurocognitive disorder Alzheimers vascular with delusion, depression, behavioral disturbance. Anxiety disorder unspecified. Impulse control disorder unspecified. Plan: Continue current psychotropics. Assessment: Vital Signs/I&O: Vital Signs Date Time Temp Pulse Resp B/P (MAP) Pulse Ox O2 Delivery O2 Flow Rate FiO2 04/28/20 06:38 98.1 66 16 121/82 (95) 93 04/27/20 19:00 Room Air I & O 04/27/20 04/27/20 04/28/20 15:00 23:00 07:00 Intake Total 120 ml 720 ml Balance 120 ml 720 ml Current Medications: I have reviewed the current psychotropics carefully including drug interactions. Risk benefit ratio favors no change other than as noted in my dictated progress note. Diagnosis: Problems: (1) Impulse control disorder, unspecified (2) Anxiety disorder, unspecified (3) Dementia, vascular, with depression (4) Dementia, vascular, with delusions (5) Dementia in Alzheimer's disease with depression (6) Dementia in Alzheimer's disease with delusions (7) Dementia of the Alzheimer's type with early onset with behavioral disturbance (8) Major neurocognitive disorder GEOVANI VIEIRA MD Apr 28, 2020 07:36
--- NOTE | 2020-04-28 07:54 | PDOC ---
Exam Note: Hiren Note: This note is a late entry for 04/27/2020 covers elements not covered in my initial note. Subjective: The patient was seen face to face in the evening of 04/27/2020 with Fracnes LINDQUIST. Discussed with nursing staff, reviewed the chart. Overall the patient remains confused, withdrawn. He sits with his eyes closed, not disruptive. Review of Systems: Poor vision. No CV, , pulmonary, ENT system symptoms on review. Mental Status Exam: The patient is oriented to himself. Insight and judgment, recent and remote memory, attention and concentration, fund of knowledge is poor consistent with his diagnoses. Laboratory Data: Reviewed. Impression: Major neurocognitive disorder Alzheimers vascular with delusion, depression, behavioral disturbance. Anxiety disorder unspecified. Impulse control disorder unspecified. Plan: Continue current psychotropics. Assessment: Vital Signs/I&O: Vital Signs Date Time Temp Pulse Resp B/P (MAP) Pulse Ox O2 Delivery O2 Flow Rate FiO2 04/28/20 06:38 98.1 66 16 121/82 (95) 93 04/27/20 19:00 Room Air I & O 04/27/20 04/27/20 04/28/20 15:00 23:00 07:00 Intake Total 120 ml 720 ml Balance 120 ml 720 ml Current Medications: I have reviewed the current psychotropics carefully including drug interactions. Risk benefit ratio favors no change other than as noted in my dictated progress note. Diagnosis: Problems: (1) Impulse control disorder, unspecified (2) Anxiety disorder, unspecified (3) Dementia, vascular, with depression (4) Dementia, vascular, with delusions (5) Dementia in Alzheimer's disease with depression (6) Dementia in Alzheimer's disease with delusions (7) Dementia of the Alzheimer's type with early onset with behavioral disturbance (8) Major neurocognitive disorder GEOVANI VIEIRA MD Apr 28, 2020 07:54
[2020-04-28] MEDS: ASPIRIN CHEWABLE 81 MG TABLET. PO SCH (09:52)
[2020-04-28] MEDS: LACTOBACILLUS RHAMNOSUS GG 1 CAPSULE. PO SCH ×2 (09:53→20:18)
[2020-04-28] MEDS: MEMANTINE 10 MG TABLET. PO SCH ×2 (09:53→20:18)
[2020-04-28] MEDS: AMIODARONE HCL 200 MG TABLET. PO SCH (09:53)
[2020-04-28] MEDS: LISINOPRIL 2.5 MG TABLET PO SCH (09:53)
[2020-04-28] MEDS: METOPROLOL SUCC 24HR ER 25 MG TAB.ER.24H. PO SCH (09:54)
[2020-04-28] MEDS: SERTRALINE 50 MG TABLET. PO SCH (09:54)
[2020-04-28] MEDS: GABAPENTIN 300 MG CAPSULE. PO SCH ×3 (09:54→20:17)
[2020-04-28] MEDS: CYANOCOBALAMIN (VITAMIN B-12) 1,000 MCG TABLET. PO SCH (09:54)
[2020-04-28 09:57] LABS: BASO % 0 % (0-3); EOS # 0.1 x10^3/uL (0.0-0.7); EOS % 1 % (0-3); HEMATOCRIT 39.1 % (39.0-53.0); HEMOGLOBIN 12.2 g/dL (13.0-17.5); LYMPH # 0.7 x10^3/uL (1.0-4.8); LYMPH % 7 % (24-48); MEAN CORPUSCULAR HEMOGLOBIN 29 pg (25-35); MEAN CORPUSCULAR HGB CONC 31 g/dL (31-37); MEAN CORPUSCULAR VOLUME 93 fL (79-100); MONO # 0.6 x10^3/uL (0.0-1.1); MONO % 6 % (0-9); NEUT # 8.6 x10^3uL (1.8-7.7); NEUT % 86 % (31-73); PLATELET COUNT 120 x10^3/uL (140-400); RED BLOOD COUNT 4.21 x10^6/uL (4.30-5.70); RED CELL DISTRIBUTION WIDTH 15.3 % (11.5-14.5)
[2020-04-28 10:03] LABS: ALBUMIN 3.6 g/dL (3.4-5.0); ALBUMIN/GLOBULIN RATIO 1.1 (1.0-1.7); CALCIUM 8.5 mg/dL (8.5-10.1); CREATININE 1.3 mg/dL (0.7-1.3); GFR 53.7; POTASSIUM 4.6 mmol/L (3.5-5.1); TOTAL BILIRUBIN 0.3 mg/dL (0.2-1.0)
[2020-04-28 10:26] LABS: % BANDS 1 % (0-9); % LYMPHS 9 % (24-48); % MONOS 6 % (0-10); % SEGS 84 % (35-66); PLT ESTIMATE DECREASED (ADEQUATE)
--- NOTE | 2020-04-28 11:50 | NUR ---
Pt is calm, confused, cooperative, and compliant. No agitation, no aggression, no hallucinations, or delusions noted. He is compliant with his medication and assessment.
[2020-04-28] MEDS: QUEtiapine 25 MG TABLET. PO SCH ×2 (12:59→17:00)
[2020-04-28 15:53] VITALS: BP 93/51
[2020-04-28] MEDS: ATORVASTATIN CALCIUM 20 MG TABLET PO SCH (20:17)
[2020-04-28] MEDS: traZODone 50 MG TABLET. PO SCH (20:18)
[2020-04-28] MEDS: MIRTAZAPINE 7.5 MG TABLET. PO SCH (20:18)
--- NOTE | 2020-04-28 20:39 | PDOC ---
Exam Note: Hiren Note: Please also refer to the separate dictated note~for this date of service dictated separately.~Patient seen individually. Discussed the patient with Nursing staff reviewed the chart.~Reviewed interim history and current functioning. Reviewed vital signs,~Labs/ Radiology~and current medications noted below. Continue current treatment with the changes noted in the dictated addendum note Assessment: Vital Signs/I&O: Vital Signs Date Time Temp Pulse Resp B/P (MAP) Pulse Ox O2 Delivery O2 Flow Rate FiO2 04/28/20 15:53 97.9 67 16 93/51 (65) 97 Room Air I & O 04/27/20 04/27/20 04/28/20 15:00 23:00 07:00 Intake Total 120 ml 720 ml Balance 120 ml 720 ml Labs: Laboratory Tests Test 04/28/20 09:00 White Blood Count 10.0 x10^3/uL (4.0-11.0) Red Blood Count 4.21 x10^6/uL (4.30-5.70) L Hemoglobin 12.2 g/dL (13.0-17.5) L Hematocrit 39.1 % (39.0-53.0) Mean Corpuscular Volume 93 fL (79-100) Mean Corpuscular Hemoglobin 29 pg (25-35) Mean Corpuscular Hemoglobin Concent 31 g/dL (31-37) Red Cell Distribution Width 15.3 % (11.5-14.5) H Platelet Count 120 x10^3/uL (140-400) L Neutrophils (%) (Auto) 86 % (31-73) H Lymphocytes (%) (Auto) 7 % (24-48) L Monocytes (%) (Auto) 6 % (0-9) Eosinophils (%) (Auto) 1 % (0-3) Basophils (%) (Auto) 0 % (0-3) Neutrophils # (Auto) 8.6 x10^3uL (1.8-7.7) H Lymphocytes # (Auto) 0.7 x10^3/uL (1.0-4.8) L Monocytes # (Auto) 0.6 x10^3/uL (0.0-1.1) Eosinophils # (Auto) 0.1 x10^3/uL (0.0-0.7) Basophils # (Auto) 0.0 x10^3/uL (0.0-0.2) Segmented Neutrophils % 84 % (35-66) H Band Neutrophils % 1 % (0-9) Lymphocytes % 9 % (24-48) L Monocytes % 6 % (0-10) Platelet Estimate Decreased (ADEQUATE) Large Platelets Present Sodium Level 143 mmol/L (136-145) Potassium Level 4.6 mmol/L (3.5-5.1) Chloride Level 107 mmol/L (98-107) Carbon Dioxide Level 28 mmol/L (21-32) Anion Gap 8 (6-14) Blood Urea Nitrogen 35 mg/dL (8-26) H Creatinine 1.3 mg/dL (0.7-1.3) Estimated GFR (Cockcroft-Gault) 53.7 BUN/Creatinine Ratio 27 (6-20) H Glucose Level 116 mg/dL (70-99) H Calcium Level 8.5 mg/dL (8.5-10.1) Total Bilirubin 0.3 mg/dL (0.2-1.0) Aspartate Amino Transferase (AST) 22 U/L (15-37) Alanine Aminotransferase (ALT) 38 U/L (16-63) Alkaline Phosphatase 78 U/L (46-116) Total Protein 7.0 g/dL (6.4-8.2) Albumin 3.6 g/dL (3.4-5.0) Albumin/Globulin Ratio 1.1 (1.0-1.7) Current Medications: I have reviewed the current psychotropics carefully including drug interactions. Risk benefit ratio favors no change other than as noted in my dictated progress note. Diagnosis: Problems: (1) Impulse control disorder, unspecified (2) Anxiety disorder, unspecified (3) Dementia, vascular, with depression (4) Dementia, vascular, with delusions (5) Dementia in Alzheimer's disease with depression (6) Dementia in Alzheimer's disease with delusions (7) Dementia of the Alzheimer's type with early onset with behavioral disturbance (8) Major neurocognitive disorder GEOVANI VIEIRA MD Apr 28, 2020 20:38
--- NOTE | 2020-04-29 01:46 | NUR ---
Pt has been pleasant and cooperative tonight. After showering he took meds whole and has been sleeping well. He has had no behaviors tonight.
[2020-04-29 06:23] VITALS: BP 110/64
--- NOTE | 2020-04-29 07:53 | PDOC ---
Exam Note: Hiren Note: This note is a late entry for 04/28/2020 covers elements not covered in my initial note. Subjective: The patient was seen face to face in the evening of 04/28/2020 with Keely LINDQUIST. Discussed with nursing staff, reviewed the chart. The patient slept 8-1/2 hours previous night. He had a rough day per nursing report. He had fecal impaction yesterday, was symptomatically treated as he had diarrhea today. He is little more anxious, restless. Review of Systems: Poor vision. No CV, , pulmonary, ENT system symptoms on review. Mental Status Exam: The patient is oriented to himself. Insight and judgment, recent and remote memory, attention and concentration, fund of knowledge is poor consistent with his diagnoses. Laboratory Data: Reviewed. Impression: Major neurocognitive disorder Alzheimers vascular with delusion, depression, behavioral disturbance. Anxiety disorder unspecified. Impulse control disorder unspecified. Plan: The patient is symptomatically stable for his constipation. If behaviors resurface, we will adjust psychotropics. Assessment: Vital Signs/I&O: Vital Signs Date Time Temp Pulse Resp B/P (MAP) Pulse Ox O2 Delivery O2 Flow Rate FiO2 04/29/20 06:23 97.5 65 14 110/64 (79) 98 04/28/20 15:53 Room Air I & O 04/28/20 04/28/20 04/29/20 14:59 22:59 06:59 Intake Total 240 ml 480 ml 120 ml Balance 240 ml 480 ml 120 ml Labs: Laboratory Tests Test 04/28/20 09:00 White Blood Count 10.0 x10^3/uL (4.0-11.0) Red Blood Count 4.21 x10^6/uL (4.30-5.70) L Hemoglobin 12.2 g/dL (13.0-17.5) L Hematocrit 39.1 % (39.0-53.0) Mean Corpuscular Volume 93 fL (79-100) Mean Corpuscular Hemoglobin 29 pg (25-35) Mean Corpuscular Hemoglobin Concent 31 g/dL (31-37) Red Cell Distribution Width 15.3 % (11.5-14.5) H Platelet Count 120 x10^3/uL (140-400) L Neutrophils (%) (Auto) 86 % (31-73) H Lymphocytes (%) (Auto) 7 % (24-48) L Monocytes (%) (Auto) 6 % (0-9) Eosinophils (%) (Auto) 1 % (0-3) Basophils (%) (Auto) 0 % (0-3) Neutrophils # (Auto) 8.6 x10^3uL (1.8-7.7) H Lymphocytes # (Auto) 0.7 x10^3/uL (1.0-4.8) L Monocytes # (Auto) 0.6 x10^3/uL (0.0-1.1) Eosinophils # (Auto) 0.1 x10^3/uL (0.0-0.7) Basophils # (Auto) 0.0 x10^3/uL (0.0-0.2) Segmented Neutrophils % 84 % (35-66) H Band Neutrophils % 1 % (0-9) Lymphocytes % 9 % (24-48) L Monocytes % 6 % (0-10) Platelet Estimate Decreased (ADEQUATE) Large Platelets Present Sodium Level 143 mmol/L (136-145) Potassium Level 4.6 mmol/L (3.5-5.1) Chloride Level 107 mmol/L (98-107) Carbon Dioxide Level 28 mmol/L (21-32) Anion Gap 8 (6-14) Blood Urea Nitrogen 35 mg/dL (8-26) H Creatinine 1.3 mg/dL (0.7-1.3) Estimated GFR (Cockcroft-Gault) 53.7 BUN/Creatinine Ratio 27 (6-20) H Glucose Level 116 mg/dL (70-99) H Calcium Level 8.5 mg/dL (8.5-10.1) Total Bilirubin 0.3 mg/dL (0.2-1.0) Aspartate Amino Transferase (AST) 22 U/L (15-37) Alanine Aminotransferase (ALT) 38 U/L (16-63) Alkaline Phosphatase 78 U/L (46-116) Total Protein 7.0 g/dL (6.4-8.2) Albumin 3.6 g/dL (3.4-5.0) Albumin/Globulin Ratio 1.1 (1.0-1.7) Current Medications: I have reviewed the current psychotropics carefully including drug interactions. Risk benefit ratio favors no change other than as noted in my dictated progress note. Diagnosis: Problems: (1) Impulse control disorder, unspecified (2) Anxiety disorder, unspecified (3) Dementia, vascular, with depression (4) Dementia, vascular, with delusions (5) Dementia in Alzheimer's disease with depression (6) Dementia in Alzheimer's disease with delusions (7) Dementia of the Alzheimer's type with early onset with behavioral disturbance (8) Major neurocognitive disorder GEOVANI VIEIRA MD Apr 29, 2020 07:53
[2020-04-29] MEDS: ASPIRIN CHEWABLE 81 MG TABLET. PO SCH (08:55)
[2020-04-29] MEDS: LISINOPRIL 2.5 MG TABLET PO SCH (08:56)
[2020-04-29] MEDS: MEMANTINE 10 MG TABLET. PO SCH ×2 (08:56→20:05)
[2020-04-29] MEDS: LACTOBACILLUS RHAMNOSUS GG 1 CAPSULE. PO SCH ×2 (08:56→20:06)
[2020-04-29] MEDS: GABAPENTIN 300 MG CAPSULE. PO SCH ×3 (08:56→20:06)
[2020-04-29] MEDS: AMIODARONE HCL 200 MG TABLET. PO SCH (08:56)
[2020-04-29] MEDS: METOPROLOL SUCC 24HR ER 25 MG TAB.ER.24H. PO SCH (08:57)
[2020-04-29] MEDS: SERTRALINE 50 MG TABLET. PO SCH (08:57)
[2020-04-29] MEDS: CYANOCOBALAMIN (VITAMIN B-12) 1,000 MCG TABLET. PO SCH (08:57)
--- NOTE | 2020-04-29 09:55 | NUR ---
JAZLYN received a call from Aniyah at [facility]. Aniyah reports that all of their swabs have returned negative and they can accept pt back as early as tomorrow. Aniyah did ask about pt swab in which JAZLYN noted that he should have been re-swabbed on Wednesday for his weekly Covid test. JAZLYN looked and pt test has not been returned yet. If the swab comes back tonight, then JAZLYN will be able to discharge pt tomorrow. Otherwise, discharge for pt will be on Wednesday. JAZLYN will call Aniyah back with those results once received and decide discharge plans.
--- NOTE | 2020-04-29 10:03 | NUR ---
Pt is calm, confused, cooperative, and compliant. No agitation, no aggression, no hallucinations, or delusions noted. He is compliant with his medication and assessment.
[2020-04-29] MEDS: QUEtiapine 25 MG TABLET. PO SCH ×2 (12:23→17:31)
--- NOTE | 2020-04-29 14:08 | NUR ---
SW attempted to contact pt dtr, Mira, ended up leaving her a message to contact SW when possible.
[2020-04-29 16:16] VITALS: BP 93/57
[2020-04-29] MEDS: MIRTAZAPINE 7.5 MG TABLET. PO SCH (20:06)
[2020-04-29] MEDS: ATORVASTATIN CALCIUM 20 MG TABLET PO SCH (20:06)
[2020-04-29] MEDS: traZODone 50 MG TABLET. PO SCH (20:06)
--- NOTE | 2020-04-29 20:55 | PDOC ---
Exam Note: Hiren Note: Please also refer to the separate dictated note~for this date of service dictated separately.~Patient seen individually. Discussed the patient with Nursing staff reviewed the chart.~Reviewed interim history and current functioning. Reviewed vital signs,~Labs/ Radiology~and current medications noted below. Continue current treatment with the changes noted in the dictated addendum note Assessment: Vital Signs/I&O: Vital Signs Date Time Temp Pulse Resp B/P (MAP) Pulse Ox O2 Delivery O2 Flow Rate FiO2 04/29/20 16:16 98.0 75 0 93/57 (69) 91 04/28/20 15:53 Room Air I & O 04/28/20 04/28/20 04/29/20 15:00 23:00 07:00 Intake Total 240 ml 480 ml 120 ml Balance 240 ml 480 ml 120 ml Current Medications: I have reviewed the current psychotropics carefully including drug interactions. Risk benefit ratio favors no change other than as noted in my dictated progress note. Diagnosis: Problems: (1) Impulse control disorder, unspecified (2) Anxiety disorder, unspecified (3) Dementia, vascular, with depression (4) Dementia, vascular, with delusions (5) Dementia in Alzheimer's disease with depression (6) Dementia in Alzheimer's disease with delusions (7) Dementia of the Alzheimer's type with early onset with behavioral disturbance (8) Major neurocognitive disorder GEOVANI VIEIRA MD Apr 29, 2020 20:55
--- NOTE | 2020-04-29 23:44 | NUR ---
This evening pt sat quietly in the hallway. He took meds whole and has been pleasant, cooperative and has had no behaviors. He was cooperative with HS cares and has been sleeping well.
[2020-04-30 06:21] VITALS: BP 125/79
--- NOTE | 2020-04-30 07:28 | PDOC ---
Exam Note: Hiren Note: This note is a late entry for 04/29/2020 covers elements not covered in my initial note. Subjective: The patient was seen face to face in the evening of 04/29/2020 with Keely LINDQUIST. Discussed with nursing staff, reviewed the chart. The patient slept 7-3/4 hours previous night. He is pleasant, wandering the unit. Review of Systems: Poor vision. No CV, , pulmonary, ENT system symptoms on review. Mental Status Exam: The patient is oriented to himself. He is pleasant. Insight and judgment, recent and remote memory, attention and concentration, fund of knowledge is poor consistent with his diagnoses. Laboratory Data: Reviewed. Impression: Major neurocognitive disorder Alzheimers vascular with delusion, depression, behavioral disturbance. Anxiety disorder unspecified. Impulse control disorder unspecified. Plan: No change from initial note. Assessment: Vital Signs/I&O: Vital Signs Date Time Temp Pulse Resp B/P (MAP) Pulse Ox O2 Delivery O2 Flow Rate FiO2 04/30/20 06:21 97.6 58 16 125/79 (94) 96 04/28/20 15:53 Room Air I & O 04/29/20 04/29/20 04/30/20 15:00 23:00 07:00 Intake Total 960 ml 240 ml 120 ml Balance 960 ml 240 ml 120 ml Current Medications: I have reviewed the current psychotropics carefully including drug interactions. Risk benefit ratio favors no change other than as noted in my dictated progress note. Diagnosis: Problems: (1) Impulse control disorder, unspecified (2) Anxiety disorder, unspecified (3) Dementia, vascular, with depression (4) Dementia, vascular, with delusions (5) Dementia in Alzheimer's disease with depression (6) Dementia in Alzheimer's disease with delusions (7) Dementia of the Alzheimer's type with early onset with behavioral disturbance (8) Major neurocognitive disorder GEOVANI VIEIRA MD Apr 30, 2020 07:28
[2020-04-30] MEDS: ASPIRIN CHEWABLE 81 MG TABLET. PO SCH (08:58)
[2020-04-30] MEDS: METOPROLOL SUCC 24HR ER 25 MG TAB.ER.24H. PO SCH (08:59)
[2020-04-30] MEDS: LISINOPRIL 2.5 MG TABLET PO SCH (08:59)
[2020-04-30] MEDS: LACTOBACILLUS RHAMNOSUS GG 1 CAPSULE. PO SCH ×2 (08:59→20:15)
[2020-04-30] MEDS: AMIODARONE HCL 200 MG TABLET. PO SCH (08:59)
[2020-04-30] MEDS: SERTRALINE 50 MG TABLET. PO SCH (08:59)
[2020-04-30] MEDS: MEMANTINE 10 MG TABLET. PO SCH ×2 (08:59→20:15)
[2020-04-30] MEDS: GABAPENTIN 300 MG CAPSULE. PO SCH ×3 (08:59→20:15)
[2020-04-30] MEDS: CYANOCOBALAMIN (VITAMIN B-12) 1,000 MCG TABLET. PO SCH (09:00)
--- NOTE | 2020-04-30 10:44 | NUR ---
JAZLYN received call back from Mira, pt dtr, who wanted to send papers for the physician to fill out. JAZLYN informed pt dtr that all residents came back negative; therefore, we would look to send pt out tomorrow. JAZLYN was asked to contact pt son who would have to financially care for pt transport back to the facility. JAZLYN will get these forms filled out [facility] and get them sent back in.
--- NOTE | 2020-04-30 12:09 | NUR ---
JAZLYN contacted pt son, Julio, per pt dtr request to discuss transport for pt tomorrow. Julio and JAZLYN went over the transport company rates of a 1-way transport for $60.00, the first five miles are free and then $2.50/mile after that. Julio agreed to that estimate and will be able to call [facility] to pay for the transport JAZLYN set up.
[2020-04-30] MEDS: QUEtiapine 25 MG TABLET. PO SCH ×2 (12:56→17:31)
--- NOTE | 2020-04-30 13:02 | NUR ---
JAZLYN received call from Aniyah at [facility]. Aniyah has requested that pt medication list be sent over [facility] so they can get their pharmacy to fill pt medications. JAZLYN will work on this with nursing once the physician is able to sign the final medication list.
--- NOTE | 2020-04-30 13:24 | NUR ---
[facility] Social Work Discharge Planning Form Patient Name CELINE ROLON Admit Date: 02 April 2020 DISCHARGE PLAN Discharge Destination: Pt to discharge back to [facility] Care Assessment: N/A Level II Assessment: N/A Transportation: [facility] is scheduled to pick pt up around 1300. Special Instructions/Notes: Please fax discharge medication list, discharge orders and discharge summary to the fax number listed below. DISCHARGE TO FACILITY Facility: [facility] Address: [address], [place] [address] Contact Name: Key Spann -- DON: Contact Name: Aniyah Madrid -- Wire Mesh Knitter: PCP: Dr. Jackson
[2020-04-30 16:28] VITALS: BP 118/75
--- NOTE | 2020-04-30 18:27 | NUR ---
Nursing note: Pt has remained in his room for most of the shift, socializing with his roommate. He has been pleasant, med compliant and cooperative. Pt has had no complaints today and does not appear to be in any pain. Will continue to monitor.
[2020-04-30] MEDS: ATORVASTATIN CALCIUM 20 MG TABLET PO SCH (20:15)
[2020-04-30] MEDS: MIRTAZAPINE 7.5 MG TABLET. PO SCH (20:15)
[2020-04-30] MEDS: traZODone 50 MG TABLET. PO SCH (20:15)
--- NOTE | 2020-04-30 20:50 | PDOC ---
Exam Note: Hiren Note: Please also refer to the separate dictated note~for this date of service dictated separately.~Patient seen individually. Discussed the patient with Nursing staff reviewed the chart.~Reviewed interim history and current functioning. Reviewed vital signs,~Labs/ Radiology~and current medications noted below. Continue current treatment with the changes noted in the dictated addendum note Assessment: Vital Signs/I&O: Vital Signs Date Time Temp Pulse Resp B/P (MAP) Pulse Ox O2 Delivery O2 Flow Rate FiO2 04/30/20 16:28 97.4 56 18 118/75 (89) 96 04/28/20 15:53 Room Air I & O 04/29/20 04/29/20 04/30/20 15:00 23:00 07:00 Intake Total 960 ml 240 ml 120 ml Balance 960 ml 240 ml 120 ml Current Medications: I have reviewed the current psychotropics carefully including drug interactions. Risk benefit ratio favors no change other than as noted in my dictated progress note. Diagnosis: Problems: (1) Impulse control disorder, unspecified (2) Anxiety disorder, unspecified (3) Dementia, vascular, with depression (4) Dementia, vascular, with delusions (5) Dementia in Alzheimer's disease with depression (6) Dementia in Alzheimer's disease with delusions (7) Dementia of the Alzheimer's type with early onset with behavioral disturbance (8) Major neurocognitive disorder GEOVANI VIEIRA MD Apr 30, 2020 20:50
--- NOTE | 2020-04-30 23:20 | NUR ---
Nursing Note Pt in hallway at shift change. Pt pleasant calm cooperative compliant with HS meds. No behaviors.
[2020-05-01] MEDS ORDERED: BISA10SU4 RC (00:54)
[2020-05-01] MEDS ORDERED: ACET325T21 PO (00:54)
[2020-05-01] MEDS ORDERED: CHOL500021 PO (00:57)
[2020-05-01] MEDS ORDERED: LACT1CAP19 PO (00:58)
[2020-05-01] MEDS ORDERED: MAGN24003 PO (00:59)
[2020-05-01] MEDS ORDERED: OLAN5TAB99 PO (01:00)
[2020-05-01] MEDS ORDERED: SERT50TA PO (01:02)
[2020-05-01] MEDS ORDERED: TRAZ-120 PO ×2 (01:03→01:04)
[2020-05-01 07:14] VITALS: BP 118/64
[2020-05-01] MEDS: ASPIRIN CHEWABLE 81 MG TABLET. PO SCH (10:19)
[2020-05-01] MEDS: LACTOBACILLUS RHAMNOSUS GG 1 CAPSULE. PO SCH (10:19)
[2020-05-01] MEDS: CYANOCOBALAMIN (VITAMIN B-12) 1,000 MCG TABLET. PO SCH (10:19)
[2020-05-01] MEDS: LISINOPRIL 2.5 MG TABLET PO SCH (10:20)
[2020-05-01] MEDS: QUEtiapine 25 MG TABLET. PO SCH (10:20)
[2020-05-01] MEDS: GABAPENTIN 300 MG CAPSULE. PO SCH (10:20)
[2020-05-01 10:21] VITALS: BP 118/64
[2020-05-01] MEDS: METOPROLOL SUCC 24HR ER 25 MG TAB.ER.24H. PO SCH (10:21)
[2020-05-01] MEDS: AMIODARONE HCL 200 MG TABLET. PO SCH (10:21)
[2020-05-01] MEDS: SERTRALINE 50 MG TABLET. PO SCH (10:21)
[2020-05-01] MEDS: MEMANTINE 10 MG TABLET. PO SCH (10:22)
--- NOTE | 2020-05-01 11:56 | NUR ---
Patient calm and cooperative today. Patient is going to be discharged today. In good spirits and cooperates when taking medications. Signed Mar faxed to facility. Report will be called once patient is picked up to be transported to facility.
--- NOTE | 2020-05-01 13:54 | NUR ---
Transition Record was faxed to follow-up provider with the following elements: Faxed to [facility] at [phone] Reason for admission, procedures, tests, principal diagnosis, pending studies, patient instructions, 11/01 contact information for unit, phone number to obtain pending test results, plan for follow-up care, physician follow-up, advanced directive information, and medication list with dose, duration and instructions. This information was included in the following documents: folder sent with patient to facility History and physical, lab results, study results, progress notes, social work planning form, DC instruction form, patient visit summary, and medication reconciliation form. Date & time record faxed: 05/01/20 Record faxed to: [phone] Record discussed with/ report given to: AMEENA Melara Facility was informed that patient was possibly exposed to positive covid patient and to quarentine him as much as possible to make sure he does not start to have any symptoms. He had a negative test on 04/27/20.
--- NOTE | 2020-05-01 19:25 | DS ---
DATE OF DISCHARGE: 05/01/2020 DISCHARGE SUMMARY/PSYCHIATRIC PROGRESS NOTE This note covers elements not covered in my initial note 05/01/2020. REASON FOR ADMISSION: Please refer to the admission history for details. Briefly, the patient is a 75-year-old male referred to us from [facility] by the [facility] in [place]. He has a history of major neurocognitive disorder, Alzheimer's, vascular with delusion, depression, behavioral disturbance. He has been aggressive, flipping tables over. He put his hands on staff, was physically getting more aggressive, behaviors were deemed dangerous, unmanageable resulting in this referral for inpatient psychiatric stabilization. SIGNIFICANT FINDINGS AND CLINICAL COURSE: Following admission, the patient was seen daily individually by myself from a psychiatric standpoint, medical followup per Dr. Alexandre/Dr. Waller. The patient remained confused, had poor vision with further made things difficult for him. He was initially agitated, paranoid. Adjustments were made in his psychotropics. He seemed to respond to a combination of Remeron 7.5 mg at bedtime, Namenda 10 mg b.i.d., Seroquel 12.5 mg at noon and 1700; trazodone 50 mg at bedtime p.r.n. insomnia, october repeat x 1; Zoloft 50 mg a day; Neurontin 300 mg t.i.d. Gradually, the patient's mood appeared to improve. He is less agitated, anxious. It took an extended period of time to find appropriate placement for him per social service staff and he was finally discharged on 05/01/2020. REVIEW OF SYSTEMS: Prior to discharge, no CV, , eye, ENT system symptoms on review. Vision poor. MENTAL STATUS EXAM: Oriented to himself. Insight, judgment, recent and remote memory, attention, concentration, fund of knowledge poor consistent with his diagnosis. He often ambulates with eyes closed. CONDITION AT DISCHARGE: Improved. FINAL DIAGNOSES: Major neurocognitive disorder, Alzheimer, vascular with delusion, depression, behavioral disturbance; anxiety disorder, unspecified; impulse control disorder, unspecified. Rest unchanged from admission. DISCHARGE MEDICATIONS: Please refer to the [facility]. DISCHARGE INSTRUCTIONS: [facility]. Time for discharge day management greater than 30 minutes. MAN Ulisses VIEIRA MD DR: RUDY/fausto JOB#: [id number] / [id number]
--- NOTE | 2020-05-01 20:55 | PDOC ---
Exam Note: Hiren Note: Please also refer to the separate dictated note~for this date of service dictated separately.~Patient seen individually. Discussed the patient with Nursing staff reviewed the chart.~Reviewed interim history and current functioning. Reviewed vital signs,~Labs/ Radiology~and current medications noted below. Continue current treatment with the changes noted in the dictated addendum note Assessment: Vital Signs/I&O: Vital Signs Date Time Temp Pulse Resp B/P (MAP) Pulse Ox O2 Delivery O2 Flow Rate FiO2 05/01/20 10:21 60 118/64 05/01/20 07:14 97.7 16 96 04/28/20 15:53 Room Air I & O 04/30/20 04/30/20 05/01/20 15:00 23:00 07:00 Intake Total 685 ml 360 ml 240 ml Balance 685 ml 360 ml 240 ml Current Medications: I have reviewed the current psychotropics carefully including drug interactions. Risk benefit ratio favors no change other than as noted in my dictated progress note. Diagnosis: Problems: (1) Impulse control disorder, unspecified (2) Anxiety disorder, unspecified (3) Dementia, vascular, with depression (4) Dementia, vascular, with delusions (5) Dementia in Alzheimer's disease with depression (6) Dementia in Alzheimer's disease with delusions (7) Dementia of the Alzheimer's type with early onset with behavioral disturbance (8) Major neurocognitive disorder GEOVANI VIEIRA MD May 01, 2020 20:55
--- NOTE | 2020-05-02 07:12 | PDOC ---
Exam Note: Hiren Note: This note is a late entry for 04/30/2020 covers elements not covered in my initial note. Subjective: The patient was seen face to face in the evening of 04/30/2020 with Ella LINDQUIST. Discussed with nursing staff, reviewed the chart. The patient slept 6-1/4 hours previous night. He had a good day. He remains confused. Review of Systems: Poor vision. He ambulates around the unit oblivious of where he is. No CV, , pulmonary, ENT system symptoms on review. Mental Status Exam: The patient is oriented to himself. Insight and judgment, recent and remote memory, attention and concentration, fund of knowledge is poor consistent with his diagnoses. Laboratory Data: Reviewed. Impression: Major neurocognitive disorder Alzheimers vascular with delusion, depression, behavioral disturbance. Anxiety disorder unspecified. Impulse control disorder unspecified. Plan: Transition to lower level of care on 05/01. Assessment: Vital Signs/I&O: Vital Signs Date Time Temp Pulse Resp B/P (MAP) Pulse Ox O2 Delivery O2 Flow Rate FiO2 05/01/20 10:21 60 118/64 05/01/20 07:14 97.7 16 96 04/28/20 15:53 Room Air I & O 05/01/20 05/01/20 05/02/20 14:59 22:59 06:59 Intake Total 750 ml Balance 750 ml Current Medications: I have reviewed the current psychotropics carefully including drug interactions. Risk benefit ratio favors no change other than as noted in my dictated progress note. Diagnosis: Problems: (1) Impulse control disorder, unspecified (2) Anxiety disorder, unspecified (3) Dementia, vascular, with depression (4) Dementia, vascular, with delusions (5) Dementia in Alzheimer's disease with depression (6) Dementia in Alzheimer's disease with delusions (7) Dementia of the Alzheimer's type with early onset with behavioral disturbance (8) Major neurocognitive disorder GEOVANI VIEIRA MD May 02, 2020 07:11
== END 2020-05-01 13:15 | DRG 57 ==
LOC: GEROPSY 13:33
PROVIDERS: ADMIT Psychiatry & Neurology Psychiatry; ATTEND Psychiatry & Neurology Psychiatry
DX: G30.9 Alzheimer's disease, unspecified (principal); F01.51 Vascular dementia, unspecified severity, with behavioral disturbance; F02.81 Dementia in other diseases classified elsewhere, unspecified severity, with behavioral disturbance; M19.90 Unspecified osteoarthritis, unspecified site; E78.5 Hyperlipidemia, unspecified; I25.10 Atherosclerotic heart disease of native coronary artery without angina pectoris; Z66 Do not resuscitate; F41.9 Anxiety disorder, unspecified; F63.9 Impulse disorder, unspecified; F32.9 Major depressive disorder, single episode, unspecified; H54.7 Unspecified visual loss; K56.41 Fecal impaction; Z79.899 Other long term (current) drug therapy; Z20.828 Contact with and (suspected) exposure to other viral communicable diseases
CPT/HCPCS: 36415; 80053; 85007; 85025; J0561; U0003